=== PATIENT | female | born 1955 | race Caucasian/White ===

== ENCOUNTER 2020-06-03 06:59 | Outpatient (REF) | payer OTHER, SELFPAY ==
[2020-06-03 07:51] LABS: MANUAL DIFF FLAG NO
[2020-06-03 07:54] LABS: Basophils Absolute Auto 0.1 X10*3/uL (0.0-0.2); Basophils Percent Auto 1.1 % (0-2); Eosinophils Absolute Auto 0.1 X10*3/uL (0.0-0.4); Eosinophils Percent Auto 1.7 % (0-4); Hematocrit 42.2 % (37-47); Hemoglobin 14.4 g/dl (12.0-16.0); Imm Gran Abs Auto 0.01 X10*3/uL (0.00-0.03); Imm Gran Pct Auto 0.2 % (0.0-0.4); Lymphocytes Absolute Auto 1.9 X10*3/uL (1.2-4.9); Lymphocytes Percent Auto 39.9 % (20-40); Mean Corpuscular HGB Conc 34.1 g/dl (31.0-35.0); Mean Corpuscular Hemoglobin 30.2 pg (27.0-33.0); Mean Corpuscular Volume 88.5 fL (80-98); Mean Platelet Volume 10.7 fL (9.4-12.3); Monocytes Absolute Auto 0.4 X10*3/uL (0.1-1.2); Monocytes Percent Auto 7.9 % (2-11); Neutrophils Absolute Auto 2.3 X10*3/uL (2.0-8.3); Neutrophils Percent Auto 49.2 % (45-73); Platelet Count 202 X10*3/uL (160-400); Red Blood Count 4.77 X10*6/uL (4.20-5.50); Red Cell Distribution Width 12.2 % (11.0-16.0); White Blood Count 4.7 X10*3/uL (4.8-10.8)
[2020-06-03 08:19] LABS: Alanine Aminotransferase 30 U/L (0-31); Alkaline Phosphatase 79 U/L (39-117); Anion Gap 12 (12-20); Aspartate Amino Transferase 22 U/L (5-31); Bilirubin Total 0.6 mg/dL (0.0-1.0); Blood Urea Nitrogen 12 mg/dL (9-16); Calcium 8.9 mg/dL (8.4-10.2); Carbon Dioxide 28 mmol/L (22-29); Chloride 104 mmol/L (96-108); Cholesterol 149 mg/dL; Estimated Glomerular Filt Rate > 60; Glucose Fasting 105 mg/dL (60-99); HDL Cholesterol 49 mg/dL; LDL Cholesterol Calculated 79 mg/dl; Potassium 4.7 mmol/l (3.3-5.1); Sodium 139 mmol/L (135-145); Total Protein 6.5 g/dL (6.5-8.0); Triglycerides 105 mg/dL
[2020-06-03 08:41] LABS: Free T4 (Free Thyroxine) 0.96 ng/dL (0.71-1.85); Thyroid Stimulating Hormone 1.15 mIU/mL (0.32-4.0)
[2020-06-03 09:04] LABS: Glucose Urine UA NEG (NEG); Leukocyte Esterase Urine 1+ (NEG); Nitrite Urine NEG (NEG); Urine Blood TRACE (NEG); Urine Ketones NEG (NEG); Urine Protein NEG (NEG-TRACE)
[2020-06-03 09:06] LABS: Appearance Urine CLEAR; Color Urine YELLOW
[2020-06-03 09:54] LABS: RBC Urine 0-2 /HPF (0); Renal Epithelial Cells Urine TRACE /LPF; Squamous Epithelial Cell Urine 1+ /LPF
== END 2020-06-03 07:00 | disposition home or self-care (01) ==
LOC: HO.LAB 06:59
PROVIDERS: PCP Internal Medicine; Visit Provider Internal Medicine
DX: I10 Essential (primary) hypertension (principal); E78.5 Hyperlipidemia, unspecified; R73.01 Impaired fasting glucose; R74.8 Abnormal levels of other serum enzymes; E03.9 Hypothyroidism, unspecified; E06.3 Autoimmune thyroiditis; E66.9 Obesity, unspecified; G47.34 Idiopathic sleep related nonobstructive alveolar hypoventilation; J30.9 Allergic rhinitis, unspecified
CPT/HCPCS: 36415; 80053; 80061; 81001; 84439; 84443; 85025

== ENCOUNTER 2020-10-07 06:57 | Outpatient (REF) | payer OTHER, SELFPAY ==
[2020-10-07 07:28] LABS: MANUAL DIFF FLAG NO
[2020-10-07 07:37] LABS: Eosinophils Absolute Auto 0.2 X10*3/uL (0.0-0.4); Eosinophils Percent Auto 3.9 % (0-4); Hematocrit 41.7 % (37-47); Hemoglobin 14.3 g/dl (12.0-16.0); Imm Gran Abs Auto 0.01 X10*3/uL (0.00-0.03); Imm Gran Pct Auto 0.2 % (0.0-0.4); Lymphocytes Absolute Auto 1.6 X10*3/uL (1.2-4.9); Lymphocytes Percent Auto 39.2 % (20-40); Mean Corpuscular HGB Conc 34.3 g/dl (31.0-35.0); Mean Corpuscular Hemoglobin 29.9 pg (27.0-33.0); Mean Corpuscular Volume 87.1 fL (80-98); Mean Platelet Volume 11.3 fL (9.4-12.3); Monocytes Absolute Auto 0.3 X10*3/uL (0.1-1.2); Monocytes Percent Auto 8.3 % (2-11); Neutrophils Percent Auto 47.4 % (45-73); Platelet Count 185 X10*3/uL (160-400); Red Blood Count 4.79 X10*6/uL (4.20-5.50); Red Cell Distribution Width 12.7 % (11.0-16.0); White Blood Count 4.1 X10*3/uL (4.8-10.8)
[2020-10-07 07:44] LABS: Glucose Urine UA NEG (NEG); Leukocyte Esterase Urine 1+ (NEG); Nitrite Urine NEG (NEG); UACC Culture Trigger YES; Urine Blood TRACE (NEG); Urine Ketones NEG (NEG); Urine Protein NEG (NEG-TRACE)
[2020-10-07 07:51] LABS: Appearance Urine CLEAR; Color Urine YELLOW
[2020-10-07 07:59] LABS: Mucus Urine 1+ /LPF; RBC Urine 0 /HPF (0); Renal Epithelial Cells Urine TRACE /LPF; Squamous Epithelial Cell Urine 1+ /LPF
[2020-10-07 08:03] LABS: Alanine Aminotransferase 39 U/L (0-31); Albumin Level 4.1 g/dL (3.5-5.0); Alkaline Phosphatase 76 U/L (39-117); Anion Gap 11 (12-20); Aspartate Amino Transferase 28 U/L (5-31); Blood Urea Nitrogen 14 mg/dL (9-16); Carbon Dioxide 29 mmol/L (22-29); Chloride 105 mmol/L (96-108); Cholesterol 138 mg/dL; Estimated Glomerular Filt Rate > 60; Glucose Fasting 125 mg/dL (60-99); HDL Cholesterol 46 mg/dL; LDL Cholesterol Calculated 73 mg/dl; Potassium 4.3 mmol/L (3.3-5.1); Sodium 141 mmol/L (135-145); Total Protein 6.6 g/dL (6.5-8.0); Triglycerides 96 mg/dL
[2020-10-07 08:26] LABS: Free T4 (Free Thyroxine) 1.08 ng/dL (0.71-1.85); Thyroid Stimulating Hormone 0.12 uIU/mL (0.32-4.0)
== END 2020-10-07 06:58 | disposition home or self-care (01) ==
LOC: HO.LAB 06:57
PROVIDERS: PCP Internal Medicine; Visit Provider Internal Medicine
DX: J45.40 Moderate persistent asthma, uncomplicated (principal); J30.9 Allergic rhinitis, unspecified; I10 Essential (primary) hypertension; G47.34 Idiopathic sleep related nonobstructive alveolar hypoventilation; E78.00 Pure hypercholesterolemia, unspecified; R79.89 Other specified abnormal findings of blood chemistry; R73.01 Impaired fasting glucose; E03.8 Other specified hypothyroidism; E06.3 Autoimmune thyroiditis
CPT/HCPCS: 36415; 80053; 80061; 81001; 81003; 84439; 84443; 85025; 87086

== ENCOUNTER 2020-10-12 07:46 | Outpatient (REF) | payer OTHER, SELFPAY ==
--- NOTE | ~2020-10-12 | XR_ITS ---
EXAMINATION: XR AP STANDING VIEWS OF BOTH KNEES WELL SUNRISE AND LATERAL VIEWS OF THE LEFT KNEE CLINICAL INFORMATION: Left knee pain. COMPARISON: 09/27/2011 TECHNIQUE: AP standing views of both knees as well as sunrise and lateral views of the left knee. FINDINGS: There is no evidence of acute fracture or dislocation of the left knee. There is mild narrowing of the medial joint space compartments bilaterally with minimal marginal spurring which is similar to previous study of 09/27/2011. No left knee effusion is present. There is mild spurring at the patellofemoral joint. 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 No significant change from study of 09/27/2011.
--- NOTE | ~2020-10-12 | XR_ITS ---
EXAMINATION: XR AP STANDING VIEWS OF BOTH KNEES WELL SUNRISE AND LATERAL VIEWS OF THE LEFT KNEE CLINICAL INFORMATION: Left knee pain. COMPARISON: 09/27/2011 TECHNIQUE: AP standing views of both knees as well as sunrise and lateral views of the left knee. FINDINGS: There is no evidence of acute fracture or dislocation of the left knee. There is mild narrowing of the medial joint space compartments bilaterally with minimal marginal spurring which is similar to previous study of 09/27/2011. No left knee effusion is present. There is mild spurring at the patellofemoral joint. 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 No significant change from study of 09/27/2011.
== END 2020-10-12 07:47 | disposition home or self-care (01) ==
LOC: HO.HOSX 07:46
PROVIDERS: Visit Provider Orthopaedic Surgery
DX: M17.12 Unilateral primary osteoarthritis, left knee (principal)
CPT/HCPCS: 73560; 73565

== ENCOUNTER 2020-12-04 15:22 | Outpatient (REF) | payer OTHER, SELFPAY ==
[2020-12-04 15:47] LABS: MANUAL DIFF FLAG NO
[2020-12-04 15:56] LABS: Basophils Percent Auto 0.7 % (0-2); Eosinophils Absolute Auto 0.1 X10*3/uL (0.0-0.4); Hematocrit 42.2 % (37-47); Hemoglobin 14.1 g/dl (12.0-16.0); Imm Gran Abs Auto 0.02 X10*3/uL (0.00-0.03); Imm Gran Pct Auto 0.3 % (0.0-0.4); Lymphocytes Percent Auto 34.7 % (20-40); Mean Corpuscular HGB Conc 33.4 g/dl (31.0-35.0); Mean Corpuscular Hemoglobin 29.3 pg (27.0-33.0); Mean Corpuscular Volume 87.6 fL (80-98); Mean Platelet Volume 10.7 fL (9.4-12.3); Monocytes Absolute Auto 0.4 X10*3/uL (0.1-1.2); Neutrophils Absolute Auto 3.3 X10*3/uL (2.0-8.3); Neutrophils Percent Auto 56.3 % (45-73); Platelet Count 193 X10*3/uL (160-400); Red Blood Count 4.82 X10*6/uL (4.20-5.50); White Blood Count 5.9 X10*3/uL (4.8-10.8)
[2020-12-04 16:12] LABS: Anion Gap 13 (12-20); Carbon Dioxide 26 mmol/L (22-29); Chloride 106 mmol/L (96-108); Potassium 4.5 mmol/L (3.3-5.1); Sodium 140 mmol/L (135-145)
== END 2020-12-04 15:23 | disposition home or self-care (01) ==
LOC: HO.LABR 15:22
PROVIDERS: PCP Internal Medicine; Visit Provider Physician Assistant Medical
DX: L65.0 Telogen effluvium (principal); L20.84 Intrinsic (allergic) eczema
CPT/HCPCS: 36415; 80051; 85025

== ENCOUNTER 2021-02-01 09:53 | Outpatient (REF) | payer OTHER, SELFPAY ==
[2021-02-01 10:29] LABS: MANUAL DIFF FLAG NO
[2021-02-01 10:37] LABS: Basophils Absolute Auto 0.1 X10*3/uL (0.0-0.2); Basophils Percent Auto 1.2 % (0-2); Eosinophils Absolute Auto 0.1 X10*3/uL (0.0-0.4); Eosinophils Percent Auto 2.1 % (0-4); Hematocrit 43.3 % (37-47); Hemoglobin 14.6 g/dl (12.0-16.0); Imm Gran Abs Auto 0.01 X10*3/uL (0.00-0.03); Imm Gran Pct Auto 0.2 % (0.0-0.4); Lymphocytes Absolute Auto 1.5 X10*3/uL (1.2-4.9); Lymphocytes Percent Auto 34.7 % (20-40); Mean Corpuscular HGB Conc 33.7 g/dl (31.0-35.0); Mean Corpuscular Volume 88.9 fL (80-98); Mean Platelet Volume 10.9 fL (9.4-12.3); Monocytes Absolute Auto 0.4 X10*3/uL (0.1-1.2); Monocytes Percent Auto 8.1 % (2-11); Neutrophils Absolute Auto 2.3 X10*3/uL (2.0-8.3); Neutrophils Percent Auto 53.7 % (45-73); Platelet Count 205 X10*3/uL (160-400); Red Blood Count 4.87 X10*6/uL (4.20-5.50); Red Cell Distribution Width 12.7 % (11.0-16.0); White Blood Count 4.3 X10*3/uL (4.8-10.8)
[2021-02-01 11:06] LABS: Anion Gap 11 (12-20); Carbon Dioxide 28 mmol/L (22-29); Chloride 105 mmol/L (96-108); Potassium 4.8 mmol/L (3.3-5.1); Sodium 139 mmol/L (135-145)
== END 2021-02-01 09:54 | disposition home or self-care (01) ==
LOC: HO.LABR 09:53
PROVIDERS: PCP Internal Medicine; Visit Provider Physician Assistant Medical
DX: L65.0 Telogen effluvium (principal); L20.84 Intrinsic (allergic) eczema
CPT/HCPCS: 36415; 80051; 85025

== ENCOUNTER 2021-02-17 07:33 | Outpatient (REF) | payer MEDICARE, OTHER, SELFPAY | END 2021-02-17 07:34 | disposition home or self-care (01) | LOC: HO.LAB 07:33 | PROVIDERS: PCP Internal Medicine; Visit Provider Internal Medicine | DX: Z13.89 Encounter for screening for other disorder (principal) ==

== ENCOUNTER 2021-07-25 09:42 | Outpatient (REF) | payer MEDICARE, OTHER, SELFPAY ==
--- NOTE | ~2021-07-25 | FL_ITS ---
EXAMINATION: FL BARIUM SWALLOW CLINICAL INFORMATION: Dysphasia. COMPARISON: None TECHNIQUE: Barium swallow examination is performed using fluoroscopic evaluation in addition to multiple fluoroscopic spot views. The patient is imaged both upright and prone and using both thick and thin barium sulfate. Fluoroscopy time: 1.1 minutes DAP: 4.416 Gy-cm2 Images: 22 FINDINGS: The patient swallowed thin and thick barium without difficulty. There is no nasopharyngeal reflux or tracheal aspiration. There is normal apposition of the vocal cords while saying E. There is normal elevation of the soft palate while saying candy. No cricopharyngeal hypertrophy. No Zenker's diverticulum. There is normal esophageal motility without erosive change. No persistent stricture. There is noted to be a Schatzki's ring but through which a half-inch diameter barium tablet passed easily. No gastroesophageal reflux was seen during the study including with water siphon test. FL/FL barium swallow IMPRESSION: Schatzki's ring.
== END 2021-07-25 09:43 | disposition home or self-care (01) ==
LOC: HO.XRAY 09:42
PROVIDERS: Visit Provider Internal Medicine
DX: R13.10 Dysphagia, unspecified (principal)
CPT/HCPCS: 74220

== ENCOUNTER 2021-10-13 07:06 | Outpatient (REF) | payer MEDICARE, OTHER, SELFPAY ==
[2021-10-13 07:17] LABS: MANUAL DIFF FLAG NO
[2021-10-13 07:57] LABS: Basophils Percent Auto 0.6 % (0-2); Eosinophils Absolute Auto 0.1 X10*3/uL (0.0-0.4); Hematocrit 43.5 % (37.0-47.0); Hemoglobin 14.2 g/dl (12.0-16.0); Lymphocytes Absolute Auto 1.9 X10*3/uL (1.2-4.9); Lymphocytes Percent Auto 36.8 % (20-40); Mean Corpuscular HGB Conc 32.6 g/dl (31.0-35.0); Mean Corpuscular Hemoglobin 29.7 pg (27.0-33.0); Mean Platelet Volume 11.2 fL (9.4-12.3); Monocytes Absolute Auto 0.4 X10*3/uL (0.1-1.2); Monocytes Percent Auto 7.2 % (2-11); Neutrophils Absolute Auto 2.7 x10*3/uL (2.0-8.3); Neutrophils Percent Auto 53.4 % (45-73); Platelet Count 196 X10*3/uL (160-400); Red Blood Count 4.78 X10*6/uL (4.20-5.50); Red Cell Distribution Width 12.5 % (11.0-16.0)
[2021-10-13 08:11] LABS: Estimated Average Glucose 117 mg/dL; Hemoglobin A1c % 5.7 %
[2021-10-13 08:18] LABS: Appearance Urine HAZY; Color Urine YELLOW; Glucose Urine UA NEG (NEG); Leukocyte Esterase Urine 2+ (NEG); Nitrite Urine NEG (NEG); PH 6.5 (5.0-8.0); UACC Culture Trigger YES; Urine Blood NEG (NEG); Urine Ketones NEG (NEG); Urine Protein NEG (NEG-TRACE)
[2021-10-13 08:23] LABS: Alanine Aminotransferase 23 U/L (0-31); Alkaline Phosphatase 79 U/L (39-117); Anion Gap 12 (12-20); Aspartate Amino Transferase 21 U/L (5-31); Bilirubin Total 0.7 mg/dL (0.0-1.0); Blood Urea Nitrogen 17 mg/dL (9-16); Calcium 9.3 mg/dL (8.4-10.2); Carbon Dioxide 27 mmol/L (22-29); Chloride 107 mmol/L (96-108); Cholesterol 149 mg/dL; Estimated Glomerular Filt Rate > 60; Glucose Fasting 116 mg/dL (60-99); HDL Cholesterol 48 mg/dL; LDL Cholesterol Calculated 88 mg/dl; Potassium 4.8 mmol/L (3.3-5.1); Sodium 141 mmol/L (135-145); Total Protein 6.6 g/dL (6.5-8.0); Triglycerides 65 mg/dL
[2021-10-13 08:37] LABS: Mucus Urine 1+ /LPF; RBC Urine 0 /HPF (0); Squamous Epithelial Cell Urine 1+ /LPF
[2021-10-13 08:46] LABS: Free T4 (Free Thyroxine) 0.91 ng/dL (0.71-1.85); Thyroid Stimulating Hormone 0.36 uIU/mL (0.32-4.0)
== END 2021-10-13 07:07 | disposition home or self-care (01) ==
LOC: HO.LAB 07:06
PROVIDERS: PCP Internal Medicine; Visit Provider Internal Medicine
DX: I10 Essential (primary) hypertension (principal); E03.9 Hypothyroidism, unspecified; E78.00 Pure hypercholesterolemia, unspecified; R73.01 Impaired fasting glucose; G47.34 Idiopathic sleep related nonobstructive alveolar hypoventilation; J30.9 Allergic rhinitis, unspecified; R79.89 Other specified abnormal findings of blood chemistry
CPT/HCPCS: 36415; 80053; 80061; 81001; 83036; 84439; 84443; 85025; 87086

== ENCOUNTER 2022-06-03 15:20 | Outpatient (REF) | payer MEDICARE, OTHER, SELFPAY ==
--- NOTE | ~2022-06-03 | XR_ITS ---
EXAMINATION: XR CHEST CLINICAL INFORMATION: Acute bronchitis. COMPARISON: Chest radiograph dated from 10/15/2012. TECHNIQUE: 2 views of the chest were obtained. FINDINGS: Normal appearance of the cardiomediastinal silhouette except for atherosclerotic disease of the thoracic aorta and coronary artery calcifications. No focal airspace opacities, pleural effusions or pneumothorax. No acute osseous abnormalities. Thoracic spondylosis. Right upper quadrant surgical clips are noted. XR/XR chest 2V IMPRESSION: No acute cardiopulmonary findings.
== END 2022-06-03 15:21 | disposition home or self-care (01) ==
LOC: HO.HMGCX 15:20
PROVIDERS: PCP Internal Medicine; Visit Provider Internal Medicine
DX: J20.9 Acute bronchitis, unspecified (principal)
CPT/HCPCS: 71046

== ENCOUNTER 2022-06-29 07:14 | Outpatient (REF) | payer MEDICARE, OTHER, SELFPAY ==
[2022-06-29 08:03] LABS: Estimated Average Glucose 117 mg/dL; Hemoglobin A1C 150.0247 umol/L; Hemoglobin A1c % 5.7 %
[2022-06-29 08:41] LABS: Alanine Aminotransferase 27 U/L (0-31); Alkaline Phosphatase 78 U/L (39-117); Anion Gap 12 (12-20); Aspartate Amino Transferase 26 U/L (5-31); Bilirubin Total 0.8 mg/dL (0.0-1.0); Blood Urea Nitrogen 19 mg/dL (9-16); Calcium 9.3 mg/dL (8.4-10.2); Carbon Dioxide 26 mmol/L (22-29); Chloride 107 mmol/L (96-108); Cholesterol 148 mg/dL; Estimated Glomerular Filt Rate > 60; Free T4 (Free Thyroxine) 0.91 ng/dL (0.71-1.85); Glucose Fasting 104 mg/dL (60-99); HDL Cholesterol 49 mg/dL; LDL Cholesterol Calculated 81 mg/dl; Sodium 140 mmol/L (135-145); Thyroid Stimulating Hormone 1.72 uIU/mL (0.32-4.0); Total Protein 6.5 g/dL (6.5-8.0); Triglycerides 91 mg/dL; Vitamin D 25-OH Total 36.1 ng/mL (>30)
[2022-06-29 09:15] LABS: Appearance Urine Clear; Color Urine Dark Yellow; Glucose Urine UA Negative (Negative); Leukocyte Esterase Urine Moderate (2+) (Negative); Nitrite Urine Negative (Negative); Specific Gravity - Urine 1.025 (1.005-1.025); UMIC TRIGGER UACC YES; Urine Blood Small (1+) (Negative); Urine Ketones Negative (Negative); Urine Protein Negative (Neg-Trace)
[2022-06-29 09:22] LABS: Bacteria Urine None Seen (None Seen); Hyaline Casts Urine 0-2 /LPF (0-2); UACC Culture Trigger YES; WBC Urine >50 /HPF (0-5)
== END 2022-06-29 07:15 | disposition home or self-care (01) ==
LOC: HO.LAB 07:14
PROVIDERS: PCP Internal Medicine; Visit Provider Internal Medicine
DX: E03.9 Hypothyroidism, unspecified (principal); E55.9 Vitamin D deficiency, unspecified; R73.01 Impaired fasting glucose; E78.00 Pure hypercholesterolemia, unspecified
CPT/HCPCS: 36415; 80053; 80061; 81001; 82306; 83036; 84439; 84443; 87086

== ENCOUNTER 2022-07-25 09:41 | Outpatient (REF) | payer MEDICARE, OTHER, SELFPAY ==
--- NOTE | 2022-07-25 11:29 | PFT_ITS ---
DIAGNOSIS: Shortness of breath. SPIROMETRY: FEV1 to FVC 85% with an FEV1 of 2.7 L which is 104% predicted, an FVC of 3.19 L which is 92% predicted. No significant response to bronchodilators noted. Maximum voluntary ventilation 90% predicted. LUNG VOLUMES: Total lung capacity 90% predicted with an expiratory reserve volume of 25% predicted. DIFFUSION CAPACITY: DLCO 76% predicted. COMPARISONS: None. INTERPRETATION: No obstructive nor restrictive ventilatory defects identified. No significant response to bronchodilators noted. Normal maximum voluntary ventilation. Lung volumes with a decrease in the expiratory reserve volume secondary to an elevated BMI. The patient does have isolated mild diffusion impairment. Need to correct for hemoglobin. Clinical correlation warranted. Sae Schwartz MD MR/MODL / [id number]
== END 2022-07-25 09:42 | disposition home or self-care (01) ==
LOC: HO.RESP 09:41
PROVIDERS: PCP Internal Medicine; Visit Provider Internal Medicine
DX: R06.02 Shortness of breath (principal)
CPT/HCPCS: 94060; 94727; 94729

== ENCOUNTER 2022-09-15 11:47 | Emergency (ER) | payer MEDICARE, OTHER, SELFPAY ==
--- NOTE | ~2022-09-15 | CT_ITS ---
EXAMINATION: CT abdomen pelvis wo IV con CLINICAL INFORMATION: Reason for Exam L flank pain rad LLQ COMPARISON: No prior CT available for comparison. TECHNIQUE: Multidetector volumetric imaging was performed from the superior aspect of the liver through the pubic symphysis noncontrasted study Sagittal and coronal reformatted images were obtained on the technologist's workstation. This CT examination was performed using dose optimization techniques as appropriate, variously including the following: *Automated exposure control *Adjustment of mA and/or kV according to patient size (this includes techniques or standardized protocols for targeted exams where dose is matched to indication/reason for exam; i.e. extremities or head) *Use of iterative reconstruction technique DLP: 818 mGy-cm FINDINGS: LOWER THORAX: Included lung bases are clear. HEPATOBILIARY: No focal hepatic lesions. No biliary ductal dilatation. GALLBLADDER: Gallbladder has been removed. SPLEEN: Spleen is normal in size. PANCREAS: No focal mass or ductal dilatation. STOMACH AND GASTROINTESTINAL TRACT: Stomach is grossly unremarkable. There is no bowel distention or thickening. No CT evidence of appendicitis. ADRENALS: No adrenal nodules. KIDNEYS/URETERS: There is mild to moderate left renal hydronephrosis and hydroureter due to 5 mm stone lodged at the distal left UVJ. No perinephric fat stranding. No other stones. The right kidney is normal. URINARY BLADDER: Partially decompressed. PELVIC VISCERA: Unremarkable PERITONEUM: No free air or fluid. LYMPH NODES: No lymphadenopathy. VASCULAR:Abdominal aorta normal in size, no aneurysm found. BONES, ABDOMINAL WALL AND SOFT TISSUES: Age-appropriate changes of the spine and skeletal system, no destructive osteolytic or osteosclerotic bone lesion found CT/CT abdomen pelvis wo IV con IMPRESSION: Mild to moderate left renal hydronephrosis and hydroureter due to 5 mm stone lodged at the distal left UVJ.
[2022-09-15 12:02] VITALS: BP 174/64; PULSE 75; RESP 16; TEMP 36.9; O2SAT 98; BMI 31.9
--- NOTE | 2022-09-15 12:02 | ED.ABDPAIN ---
HPI - Abdominal Pain General Chief Complaint: Urogenital-Female <LOPEZ Jean - Last Filed: 09/15/22 12:05> Stated Complaint: quest kidney stones. 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 The patient reports left sided flank pain was intermittent at first 4 out 10 sharp radiating to LLQ/ groin area, last night left sided flank pain out of proportion 10 out of 10 sharp radiating to LLQ/groin area. Denies fever, chills, night sweats. Denies dysuria, frequency and urgency, however reports hematuria started this morning. Intermittent nausea. No vomiting, diarrhea. Increased belching. Last bowel movement yesterday and normal. Eating and drinking ok, ate full breakfast this morning. She reports taking Aleve with minimal improvement. <LOPEZ Bolton - Last Filed: 09/15/22 15:50> MD elicited complaint: flank pain (Left side ) <LOPEZ Bolton Last Filed: 09/15/22 15:50> Pertinent past history: kidney stones <LOPEZ Bolton Last Filed: 09/15/22 15:50> Onset (ago): day(s) <LOPEZ Bolton Last Filed: 09/15/22 15:50> Pain Consistency: constant <LOPEZ Bolton Last Filed: 09/15/22 15:50> Location: L flank and groin <LOPEZ Bolton - Last Filed: 09/15/22 15:50> Severity: severe <LOPEZ Bolton - Last Filed: 09/15/22 15:50> Pain scale (0-10): 10 <LOPEZ oBlton - Last Filed: 09/15/22 15:50> Quality: sharp <LOPEZ Bolton - Last Filed: 09/15/22 15:50> Radiation: LLQ (pain radiating to LLQ groin area ) and suprapubic <LOPEZ Bolton - Last Filed: 09/15/22 15:50> Migration to: LLQ <LOPEZ Bolton - Last Filed: 09/15/22 15:50> Exacerbating factors: movement <LOPEZ Bolton - Last Filed: 09/15/22 15:50> Relieving factors: medication (some improvement with Aleve ) <LOPEZ Bolton - Last Filed: 09/15/22 15:50> Associated symptoms: nausea and hematuria <LOPEZ Bolton - Last Filed: 09/15/22 15:50> Treatments prior to arrival: other (Aleve ) <LOPEZ Bolton - Last Filed: 09/15/22 15:50> Related Data Home Medications: Home Medications Medication Instructions Recorded Confirmed fluticasone 250 mcg-salmeterol 50 1 inh inhalation Q12H 06/16/20 07/01/22 mcg/dose blistr powdr for inhalation (Advair Diskus) loratadine 10 mg disintegrating 10 mg PO DAILY 06/16/20 07/01/22 tablet (Allergy Relief (loratadine)) omega-3 fatty acids 1,000 mg 2,000 mg PO DAILY 08/15/20 07/01/22 capsule (Fish Oil Concentrate) Previous Rx's Medication Instructions Recorded albuterol sulfate 90 mcg/actuation 2 puff inhalation Q6H PRN 01/01/22 aerosol inhaler (ProAir HFA) bronchospasm #6.7 grams levofloxacin 500 mg tablet 500 mg PO DAILY #10 tabs 06/03/22 levothyroxine 100 mcg tablet 100 mcg PO QAM 90 days #90 tabs 07/01/22 ezetimibe 10 mg-simvastatin 20 mg 1 tab PO DAILY #90 tabs 07/17/22 tablet lisinopril 10 mg tablet 10 mg PO DAILY #90 tabs 08/07/22 ketorolac 10 mg tablet 10 mg PO Q8H #14 tabs 09/15/22 ondansetron HCl 4 mg tablet 4 mg PO Q8H Nausea and vomiting 09/15/22 #14 tabs prednisone 20 mg tablet 20 mg PO DAILY inflammation 5 days 09/15/22 #5 tabs tamsulosin 0.4 mg capsule (Flomax) 0.4 mg PO DAILY 5 days #5 caps 09/15/22 <LOPEZ Jean Last Filed: 09/15/22 12:05> Allergies/Adverse Reactions: Allergies Allergy/AdvReac Type Severity Reaction Status Date / Time cortisone Allergy Mild swelling Verified 09/15/22 12:02 Codeine Phosphate AdvReac Severe mental Verified 09/15/22 12:02 status changes, dizziness, fuzzy gabapentin [Neurontin] AdvReac Severe mental Verified 09/15/22 12:02 status changes tramadol AdvReac Severe mental Verified 09/15/22 12:02 status change, dizziness, fuzzy carrots, apple cheeries, and Allergy Unknown Unknown Uncoded 07/01/22 11:00 a <LOPEZ Jean Last Filed: 09/15/22 12:05> Review of Systems Review of Systems Constitutional : No Fever, No Chills, No Night Sweats, No Fatigue, No Malaise Cardiovascular : No Chest Pain, No SOB Respiratory : No Cough, No Sputum, No Wheezing, No Dyspnea Gastrointestinal : + Nausea, No Vomiting, No Diarrhea, + abdominal Pain left flank radiating to LLQ/groin area. No Hematochezia, No Melena Genitourinary : No irregular bleeding, No Dysuria, No Urinary Frequency, + Hematuria,No Urinary Incontinence, No Urgency, No Flank Pain Musculoskeletal : No joint pain, No Myalgias, No Joint Swelling Skin : No Skin Lesions, No rash Neuro : No Weakness, No Numbness, No Paresthesias, No Loss of Consciousness, No Dizziness, No Headache Heme/Lymph: No Lymphadenopathy Endocrine : No Temperature Intolerance <LOPEZ Bolton Last Filed: 09/15/22 15:50> Yes all other systems are reviewed and are negative <LOPEZ Bolton Filed: 09/15/22 15:50> [facility] Past Medical History Attestation statement: The following information was validated with the patient. <LOPEZ Bolton - Last Filed: 09/15/22 15:50> Source: old records reviewed, obtained from family and nursing notes reviewed <LOPEZ Bolton - Last Filed: 09/15/22 15:50> Medical History: Medical History Allergic rhinitis Arthritis of sacroiliac joint Asthma Benign essential hypertension Bilateral lower extremity edema Degenerative joint disease of left knee Elevated LFTs Hair loss Aime's thyroiditis Hypothyroidism Impaired fasting glucose Lumbar degenerative disc disease Nocturnal hypoxemia Obesity (BMI 30-39.9) Pure hypercholesterolemia <LOPEZ Jean - Last Filed: 09/15/22 12:05> Surgical History: Surgical History H/O knee surgery History of cholecystectomy History of excision of lesion History of extraction of renal calculus History of removal of cyst History of tonsillectomy History of total abdominal hysterectomy <LOPEZ eJan - Last Filed: 09/15/22 12:05> Family History Family History: Family History Father No problems noted. Mother Stroke Hypertension CVD (cardiovascular disease) Diabetes mellitus Cancer <LOPEZ Jean - Last Filed: 09/15/22 12:05> Social History Social History: Social History Housing: Apartment Alcohol intake: current Alcohol intake frequency: holidays/special occasions only Patient Tobacco Use Status: Never used Tobacco e-Cigarette/Vaping Use: Never Used Second Hand Smoke Exposure: Yes Advance Directives: No Advance Directives Information Provided: No service: No Current occupational status: retired Cognitive needs: No Hearing needs: No Vision needs: Yes (Glasses) <LOPEZ Jean - Last Filed: 09/15/22 12:05> Physical Exam ED Vital Signs: Vital Signs - 24 hr 09/15/22 12:02 09/15/22 13:35 Temperature 98.4 F 97.8 F Pulse Rate 75 78 Respiratory Rate 16 18 Blood Pressure 174/64 H 142/80 H Pulse Oximetry 98 93 Oxygen Delivery Method Room Air Room Air BMI result Body Mass Index 31.9 <LOPEZ Jean - Last Filed: 09/15/22 12:05> Vital Signs - 24 hr 09/15/22 12:02 09/15/22 13:35 Temperature 98.4 F 97.8 F Pulse Rate 75 78 Respiratory Rate 16 18 Blood Pressure 174/64 H 142/80 H Pulse Oximetry 98 93 Oxygen Delivery Method Room Air Room Air BMI result Body Mass Index 31.9 Vital signs have been reviewed and all within normal limits <LOPEZ Bolton - Last Filed: 09/15/22 15:50> Appearance: Alert. Oriented X3. No acute distress. Head: Normal external exam. Normocephalic. Eyes: PERRLA. EOMI. Conjunctiva and sclera normal. Eyelids normal. ENT: Pharynx normal. Uvula midline. Moist mucous membranes. No trismus noted. No drooling noted. No muffled voice noted. Neck: Normal inspection. Neck supple. FROM. No adenopathy. No meningeal signs. CVS: Normal heart rate and rhythm. Heart sound normal. No murmurs noted. Pulses normal throughout. Respiratory: No respiratory distress. Painless inspiration. Breath sounds normal. No wheezes/rales/rhonchi noted. Chest nontender. No accessory muscle usage noted or decreased air movement noted. Abdomen: Soft and LLQ tenderness . Nondistended. No guarding. No rigidity. Bowel sounds normal in all 4 quadrants. No distention noted. No organomegaly noted. No visible injury noted. No rebound tenderness. Negative Rovsing sign. Negative obturator's sign. Negative psoas sign. Negative Braga sign. Back: + CVA tenderness left side. Full range of motion noted. Skin: Skin warm and dry. Normal skin color. Normal skin turgor. No rashes/lesions/lacerations noted. Extremities: Extremities exhibit normal range of motion. Extremities nontender. Neuro: Oriented X 3. No motor deficit. No sensory deficit. Reflexes normal. Normal steady gait. CN's II-XII intact bilaterally? <LOPEZ Bolton - Last Filed: 02/05/23 15:50> Course Course Course Narrative: RMZahraa--67-year-old female with past medical history of kidney stones, renal stones, HLD, Aime's thyroiditis, asthma, presenting to the ED complaining of left flank pain radiating to left lower quadrant x1 week with associated nausea and hematuria. 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 The patient reports left sided flank pain was intermittent at first 4 out 10 sharp radiating to LLQ/ groin area, last night left sided flank pain out of proportion 10 out of 10 sharp radiating to LLQ/groin area. Denies fever, chills, night sweats. Denies dysuria, frequency and urgency, however reports hematuria started this morning. Intermittent nausea. No vomiting, diarrhea. Increased belching. Last bowel movement yesterday and normal. Eating and drinking ok, ate full breakfast this morning. She reports taking Aleve with minimal improvement. The patient is a 67 year old female with a past medical history of Kidney and renal stones presenting with a week long history of intermittent Left sided flank pain radiating to the LLQ/groin area. Reports nausea and hematuria which she noted this morning. The pain progressed from sharp 4 out of 10 to 10 out of 10 pain. Plan: IV fluids Pain Control Imaging <LOPEZ Bolton - Last Filed: 09/15/22 15:50> Time: 12:15 <LOPEZ Bolton - Last Filed: 09/15/22 15:50> Reevaluation #2: CBC - with normal lab values BMP - BUN 22 - Random Glucose 134, AST/ALT 34, Total Protein 6.4 UA - Urine BLood - 3+ Large, Leukocyte Esterase 2+ moderate, Urine RBC >20 COVID-19 Negative <LOPEZ Bloton - Last Filed: 09/15/22 15:50> Time: 13:26 <LOPEZ Bolton - Last Filed: 09/15/22 15:50> Reevaluation #3: Imaging: CT/CT abdomen pelvis wo IV con IMPRESSION: Mild to moderate left renal hydronephrosis and hydroureter due to 5 mm stone lodged at the distal left UVJ. Therefore I discussed this case with Shabbir the urologist and he reports as long as her pain is controlled which it is with IV Toradol that the patient can be discharged with symptomatic treatment, Flomax and prednisone with follow-up with him as an outpatient basis and his symptoms worsen to return. Patient understands and is agreeable to this. <LOPEZ Bolton - Last Filed: 09/15/22 15:50> Time: 15:44 <LOPEZ Bolton - Last Filed: 09/15/22 15:50> Medical Decision Making Consult Healthcare Provider Management of the patient was discussed with: Exercise Instructor (Dr. Shea urologist) <LOPEZ Bolton - Last Filed: 09/15/22 15:50> Lab Data MDM Lab Attestation statement: I reviewed the patient's lab results. <LOPEZ Bolton - Last Filed: 09/15/22 15:50> Result Diagrams: 09/15/22 12:15 09/15/22 12:15 <LOPEZ Jean - Last Filed: 09/15/22 12:05> Labs: Lab Results 09/15/22 09/15/22 09/15/22 Range/Units 12:15 12:15 12:15 WBC 6.6 (4.8-10.8) X10*3/uL RBC 4.80 (4.20-5.50) X10*6/uL Hgb 14.5 (12.0-16.0) g/dl Hct 42.7 (37.0-47.0) % MCV 89.0 (80.0-98.0) fL MCH 30.2 (27.0-33.0) pg MCHC 34.0 (31.0-35.0) g/dl RDW 12.7 (11.0-16.0) % Plt Count 194 (160-400) X10*3/uL MPV 10.1 (9.4-12.3) fL Immature Gran % (Auto) 0.2 (0.0-0.4) % Neut % (Auto) 67.8 (45-73) % Lymph % (Auto) 22.0 (20-40) % [place] % (Auto) 7.4 (2-11) % Eos % (Auto) 2.0 (0-4) % Baso % (Auto) 0.6 (0-2) % Lymph # (Auto) 1.5 (1.2-4.9) X10*3/uL [place] # (Auto) 0.5 (0.1-1.2) X10*3/uL Eos # (Auto) 0.1 (0.0-0.4) X10*3/uL Baso # (Auto) 0.0 (0.0-0.2) X10*3/uL Abs Immat Gran (auto) 0.01 (0.00-0.03) X10*3/uL Absolute Neuts (auto) 4.5 (2.0-8.3) x10*3/uL Absolute Nucleated RBC 0.000 (0.0-0.012) X10*3/uL Nucleated RBC % (auto) 0.0 (0.0-0.2) /100WBC Sodium 140 (135-145) mmol/L Potassium 4.8 (3.3-5.1) mmol/L Chloride 107 (96-108) mmol/L Carbon Dioxide 24 (22-29) mmol/L Anion Gap 14 (12-20) BUN 22 H (9-16) mg/dL Creatinine 1.36 (0.5-1.4) mg/dL Estim Creat Clear Calc 46.8 Estimated GFR 39 Random Glucose 134 H (60-115) mg/dL Calcium 9.3 (8.4-10.2) mg/dL Magnesium 1.8 (1.6-2.6) mg/dL Total Bilirubin 0.9 (0.0-1.0) mg/dL Direct Bilirubin 0.2 (0.0-0.5) mg/dL AST 34 H (5-31) U/L ALT 34 H (0-31) U/L Alkaline Phosphatase 88 (39-117) U/L Total Protein 6.4 L (6.5-8.0) g/dL Albumin 3.9 (3.5-5.0) g/dL Lipase 32 (8-78) U/L Urine Color Urine Appearance Urine pH (5.0-9.0) Ur Specific [place] (1.005-1.025) Urine Protein (Neg-Trace) mg/dL Urine Glucose (UA) (Negative) mg/dL Urine Ketones (Negative) mg/dL Urine Blood (Negative) Urine Nitrite (Negative) Ur Leukocyte Esterase (Negative) Urine RBC (0-2) /HPF Urine WBC (0-5) /HPF Ur Squamous Epith Cells (0-2) /HPF Urine Bacteria (None Seen) Hyaline Casts (0-2) /LPF COVID-19 (CLAY) Negative (Negative) COVID-19 Clin Com See Note 09/15/22 Range/Units 12:15 WBC (4.8-10.8) X10*3/uL RBC (4.20-5.50) X10*6/uL Hgb (12.0-16.0) g/dl Hct (37.0-47.0) % MCV (80.0-98.0) fL MCH (27.0-33.0) pg MCHC (31.0-35.0) g/dl RDW (11.0-16.0) % Plt Count (160-400) X10*3/uL MPV (9.4-12.3) fL Immature Gran % (Auto) (0.0-0.4) % Neut % (Auto) (45-73) % Lymph % (Auto) (20-40) % [place] % (Auto) (2-11) % Eos % (Auto) (0-4) % Baso % (Auto) (0-2) % Lymph # (Auto) (1.2-4.9) X10*3/uL [place] # (Auto) (0.1-1.2) X10*3/uL Eos # (Auto) (0.0-0.4) X10*3/uL Baso # (Auto) (0.0-0.2) X10*3/uL Abs Immat Gran (auto) (0.00-0.03) X10*3/uL Absolute Neuts (auto) (2.0-8.3) x10*3/uL Absolute Nucleated RBC (0.0-0.012) X10*3/uL Nucleated RBC % (auto) (0.0-0.2) /100WBC Sodium (135-145) mmol/L Potassium (3.3-5.1) mmol/L Chloride (96-108) mmol/L Carbon Dioxide (22-29) mmol/L Anion Gap (12-20) BUN (9-16) mg/dL Creatinine (0.5-1.4) mg/dL Estim Creat Clear Calc Estimated GFR Random Glucose (60-115) mg/dL Calcium (8.4-10.2) mg/dL Magnesium (1.6-2.6) mg/dL Total Bilirubin (0.0-1.0) mg/dL Direct Bilirubin (0.0-0.5) mg/dL AST (5-31) U/L ALT (0-31) U/L Alkaline Phosphatase (39-117) U/L Total Protein (6.5-8.0) g/dL Albumin (3.5-5.0) g/dL Lipase (8-78) U/L Urine Color Dark Yellow Urine Appearance Cloudy Urine pH 5.5 (5.0-9.0) Ur Specific [place] 1.025 (1.005-1.025) Urine Protein Trace (Neg-Trace) mg/dL Urine Glucose (UA) Negative (Negative) mg/dL Urine Ketones Trace (Negative) mg/dL Urine Blood Large (3+) H (Negative) Urine Nitrite Negative (Negative) Ur Leukocyte Esterase Moderate (2+) H (Negative) Urine RBC >20 H (0-2) /HPF Urine WBC 11-20 (0-5) /HPF Ur Squamous Epith Cells 0-2 (0-2) /HPF Urine Bacteria None Seen (None Seen) Hyaline Casts 0-2 (0-2) /LPF COVID-19 (CLAY) (Negative) COVID-19 Clin Com <LOPEZ Jean - Last Filed: 09/15/22 12:05> Lab Results 09/15/22 09/15/22 09/15/22 Range/Units 12:15 12:15 12:15 WBC 6.6 (4.8-10.8) X10*3/uL RBC 4.80 (4.20-5.50) X10*6/uL Hgb 14.5 (12.0-16.0) g/dl Hct 42.7 (37.0-47.0) % MCV 89.0 (80.0-98.0) fL MCH 30.2 (27.0-33.0) pg MCHC 34.0 (31.0-35.0) g/dl RDW 12.7 (11.0-16.0) % Plt Count 194 (160-400) X10*3/uL MPV 10.1 (9.4-12.3) fL Immature Gran % (Auto) 0.2 (0.0-0.4) % Neut % (Auto) 67.8 (45-73) % Lymph % (Auto) 22.0 (20-40) % [place] % (Auto) 7.4 (2-11) % Eos % (Auto) 2.0 (0-4) % Baso % (Auto) 0.6 (0-2) % Lymph # (Auto) 1.5 (1.2-4.9) X10*3/uL [place] # (Auto) 0.5 (0.1-1.2) X10*3/uL Eos # (Auto) 0.1 (0.0-0.4) X10*3/uL Baso # (Auto) 0.0 (0.0-0.2) X10*3/uL Abs Immat Gran (auto) 0.01 (0.00-0.03) X10*3/uL Absolute Neuts (auto) 4.5 (2.0-8.3) x10*3/uL Absolute Nucleated RBC 0.000 (0.0-0.012) X10*3/uL Nucleated RBC % (auto) 0.0 (0.0-0.2) /100WBC Sodium 140 (135-145) mmol/L Potassium 4.8 (3.3-5.1) mmol/L Chloride 107 (96-108) mmol/L Carbon Dioxide 24 (22-29) mmol/L Anion Gap 14 (12-20) BUN 22 H (9-16) mg/dL Creatinine 1.36 (0.5-1.4) mg/dL Estim Creat Clear Calc 46.8 Estimated GFR 39 Random Glucose 134 H (60-115) mg/dL Calcium 9.3 (8.4-10.2) mg/dL Magnesium 1.8 (1.6-2.6) mg/dL Total Bilirubin 0.9 (0.0-1.0) mg/dL Direct Bilirubin 0.2 (0.0-0.5) mg/dL AST 34 H (5-31) U/L ALT 34 H (0-31) U/L Alkaline Phosphatase 88 (39-117) U/L Total Protein 6.4 L (6.5-8.0) g/dL Albumin 3.9 (3.5-5.0) g/dL Lipase 32 (8-78) U/L Urine Color Urine Appearance Urine pH (5.0-9.0) Ur Specific [place] (1.005-1.025) Urine Protein (Neg-Trace) mg/dL Urine Glucose (UA) (Negative) mg/dL Urine Ketones (Negative) mg/dL Urine Blood (Negative) Urine Nitrite (Negative) Ur Leukocyte Esterase (Negative) Urine RBC (0-2) /HPF Urine WBC (0-5) /HPF Ur Squamous Epith Cells (0-2) /HPF Urine Bacteria (None Seen) Hyaline Casts (0-2) /LPF COVID-19 (CLAY) Negative (Negative) COVID-19 Clin Com See Note 09/15/22 Range/Units 12:15 WBC (4.8-10.8) X10*3/uL RBC (4.20-5.50) X10*6/uL Hgb (12.0-16.0) g/dl Hct (37.0-47.0) % MCV (80.0-98.0) fL MCH (27.0-33.0) pg MCHC (31.0-35.0) g/dl RDW (11.0-16.0) % Plt Count (160-400) X10*3/uL MPV (9.4-12.3) fL Immature Gran % (Auto) (0.0-0.4) % Neut % (Auto) (45-73) % Lymph % (Auto) (20-40) % [place] % (Auto) (2-11) % Eos % (Auto) (0-4) % Baso % (Auto) (0-2) % Lymph # (Auto) (1.2-4.9) X10*3/uL [place] # (Auto) (0.1-1.2) X10*3/uL Eos # (Auto) (0.0-0.4) X10*3/uL Baso # (Auto) (0.0-0.2) X10*3/uL Abs Immat Gran (auto) (0.00-0.03) X10*3/uL Absolute Neuts (auto) (2.0-8.3) x10*3/uL Absolute Nucleated RBC (0.0-0.012) X10*3/uL Nucleated RBC % (auto) (0.0-0.2) /100WBC Sodium (135-145) mmol/L Potassium (3.3-5.1) mmol/L Chloride (96-108) mmol/L Carbon Dioxide (22-29) mmol/L Anion Gap (12-20) BUN (9-16) mg/dL Creatinine (0.5-1.4) mg/dL Estim Creat Clear Calc Estimated GFR Random Glucose (60-115) mg/dL Calcium (8.4-10.2) mg/dL Magnesium (1.6-2.6) mg/dL Total Bilirubin (0.0-1.0) mg/dL Direct Bilirubin (0.0-0.5) mg/dL AST (5-31) U/L ALT (0-31) U/L Alkaline Phosphatase (39-117) U/L Total Protein (6.5-8.0) g/dL Albumin (3.5-5.0) g/dL Lipase (8-78) U/L Urine Color Dark Yellow Urine Appearance Cloudy Urine pH 5.5 (5.0-9.0) Ur Specific [place] 1.025 (1.005-1.025) Urine Protein Trace (Neg-Trace) mg/dL Urine Glucose (UA) Negative (Negative) mg/dL Urine Ketones Trace (Negative) mg/dL Urine Blood Large (3+) H (Negative) Urine Nitrite Negative (Negative) Ur Leukocyte Esterase Moderate (2+) H (Negative) Urine RBC >20 H (0-2) /HPF Urine WBC 11-20 (0-5) /HPF Ur Squamous Epith Cells 0-2 (0-2) /HPF Urine Bacteria None Seen (None Seen) Hyaline Casts 0-2 (0-2) /LPF COVID-19 (CLAY) (Negative) COVID-19 Clin Com <LOPEZ Bolton Last Filed: 09/15/22 15:50> Independent Interpretation I performed an independent interpretation of an: CT Scan <LOPEZ Bolton Last Filed: 09/15/22 15:50> Interpretation: FINDINGS: LOWER THORAX: Included lung bases are clear. HEPATOBILIARY: No focal hepatic lesions. No biliary ductal dilatation. GALLBLADDER: Gallbladder has been removed. SPLEEN: Spleen is normal in size. PANCREAS: No focal mass or ductal dilatation. STOMACH AND GASTROINTESTINAL TRACT: Stomach is grossly unremarkable. There is no bowel distention or thickening. No CT evidence of appendicitis. ADRENALS: No adrenal nodules. KIDNEYS/URETERS: There is mild to moderate left renal hydronephrosis and hydroureter due to 5 mm stone lodged at the distal left UVJ. No perinephric fat stranding. No other stones. The right kidney is normal. URINARY BLADDER: Partially decompressed. PELVIC VISCERA: Unremarkable PERITONEUM: No free air or fluid. LYMPH NODES: No lymphadenopathy. VASCULAR:Abdominal aorta normal in size, no aneurysm found. BONES, ABDOMINAL WALL AND SOFT TISSUES: Age-appropriate changes of the spine and skeletal system, no destructive osteolytic or osteosclerotic bone lesion found CT/CT abdomen pelvis wo IV con IMPRESSION: Mild to moderate left renal hydronephrosis and hydroureter due to 5 mm stone lodged at the distal left UVJ. <LOPEZ Bolton - Last Filed: 09/15/22 15:50> Radiology Impression Discussion of test interpretation with radiology: I have reviewed the radiologist's reading. <LOPEZ Bolton Last Filed: 09/15/22 15:50> Independent Historian Clinical information obtained from an independent historian. History obtained from or confirmed by: Spouse <LOPEZ Bolton Last Filed: 09/15/22 15:50> External Record Review External record reviewed: Inpatient record, Office record, Outpatient record, Prior outpatient labs, Prior outpatient radiology, Primary care record and Outside ED record <LOPEZ Bolton Last Filed: 09/15/22 15:50> Prescription Management I considered prescription management with: Pain Medication <LOPEZ Bolton - Last Filed: 09/15/22 15:50> Medications Administered Discontinued Medications Generic Name Dose Route Start Last Admin Trade Name Freq PRN Reason Stop Dose Admin Sodium Chloride 1,000 mls @ 999 mls/hr 09/15/22 12:15 09/15/22 13:03 Ns IV 09/15/22 13:15 999 mls/hr .Q1H1M VALERIE Administration Ketorolac Tromethamine 30 mg 09/15/22 12:42 09/15/22 13:03 Ketorolac Tromethamine 30 Mg/Ml Vial IVPUSH 09/15/22 12:43 30 mg ONCE ONE Administration Ondansetron HCl 4 mg 09/15/22 12:02 09/15/22 13:03 Ondansetron Hcl 4 Mg/2 Ml Vial IVPUSH 09/15/22 12:03 4 mg ONCE ONE Administration <LOPEZ Jean Last Filed: 09/15/22 12:05> Medications Administered Discontinued Medications Generic Name Dose Route Start Last Admin Trade Name Freq PRN Reason Stop Dose Admin Sodium Chloride 1,000 mls @ 999 mls/hr 09/15/22 12:15 09/15/22 13:03 Ns IV 09/15/22 13:15 999 mls/hr .Q1H1M VALERIE Administration Ketorolac Tromethamine 30 mg 09/15/22 12:42 09/15/22 13:03 Ketorolac Tromethamine 30 Mg/Ml Vial IVPUSH 09/15/22 12:43 30 mg ONCE ONE Administration Ondansetron HCl 4 mg 09/15/22 12:02 09/15/22 13:03 Ondansetron Hcl 4 Mg/2 Ml Vial IVPUSH 09/15/22 12:03 4 mg ONCE ONE Administration <LOPEZ Bolton - Last Filed: 09/15/22 15:50> Discharge Plan Discharge Clinical Impression: Hydronephrosis of left kidney, Left ureteral calculus <LOPEZ Jean Last Filed: 09/15/22 12:05> Patient Disposition: Home, Self-Care <LOPEZ Jean Last Filed: 09/15/22 12:05> Instructions: Hydronephrosis (ED), Ureteral Stones (ED) <LOPEZ Jean - Last Filed: 09/15/22 12:05> Prescriptions: New ketorolac 10 mg tablet 10 mg PO Q8H Qty: 14 0RF Rx Instructions: First dose given in the ER by IV and patient tolerated well prednisone 20 mg tablet 20 mg PO DAILY 5 Days Qty: 5 0RF tamsulosin [Flomax] 0.4 mg capsule 0.4 mg PO DAILY 5 Days Qty: 5 0RF ondansetron HCl 4 mg tablet 4 mg PO Q8H Qty: 14 0RF No Action ezetimibe-simvastatin 10-20 mg tablet 1 tab PO DAILY Qty: 90 0RF lisinopril 10 mg tablet 10 mg PO DAILY Qty: 90 1RF omega-3 fatty acids [Fish Oil Concentrate] 1,000 mg capsule 2,000 mg PO DAILY loratadine [Allergy Relief (loratadine)] 10 mg tablet,disintegrating 10 mg PO DAILY fluticasone propion-salmeterol [Advair Diskus] 250-50 mcg/dose blister with device 1 inh inhalation Q12H albuterol sulfate [ProAir HFA] 90 mcg/actuation HFA aerosol inhaler 2 puff inhalation Q6H PRN (Reason: bronchospasm) Qty: 6.7 1RF levofloxacin 500 mg tablet 500 mg PO DAILY Qty: 10 0RF levothyroxine 100 mcg tablet 100 mcg PO QAM 90 Days Qty: 90 3RF Rx Instructions: take in the morning on an empty stomach. do not eat or drink anything for 30 minutes afterwards except for water <LOPEZ Jean - Last Filed: 09/15/22 12:05> Referrals: Eldon Mena MD [Primary Care Provider] - 2 days Chester Shea MD [Physician] - (Call to make a follow-up appointment) <LOPEZ Jean - Last Filed: 09/15/22 12:05>
[2022-09-15 12:24] LABS: MANUAL DIFF FLAG NO
[2022-09-15 12:27] LABS: Appearance Urine Cloudy; Color Urine Dark Yellow; Glucose Urine UA Negative (Negative); Leukocyte Esterase Urine Moderate (2+) (Negative); Nitrite Urine Negative (Negative); PH 5.5 (5.0-9.0); Specific Gravity - Urine 1.025 (1.005-1.025); UMIC TRIGGER UACC YES; Urine Blood Large (3+) (Negative); Urine Ketones Trace mg/dL (Negative); Urine Protein Trace mg/dL (Neg-Trace)
[2022-09-15 12:29] LABS: Basophils Percent Auto 0.6 % (0-2); Eosinophils Absolute Auto 0.1 X10*3/uL (0.0-0.4); Hematocrit 42.7 % (37.0-47.0); Hemoglobin 14.5 g/dl (12.0-16.0); Imm Gran Abs Auto 0.01 X10*3/uL (0.00-0.03); Imm Gran Pct Auto 0.2 % (0.0-0.4); Lymphocytes Absolute Auto 1.5 X10*3/uL (1.2-4.9); Mean Corpuscular Hemoglobin 30.2 pg (27.0-33.0); Mean Platelet Volume 10.1 fL (9.4-12.3); Monocytes Absolute Auto 0.5 X10*3/uL (0.1-1.2); Monocytes Percent Auto 7.4 % (2-11); Neutrophils Absolute Auto 4.5 x10*3/uL (2.0-8.3); Neutrophils Percent Auto 67.8 % (45-73); Platelet Count 194 X10*3/uL (160-400); Red Cell Distribution Width 12.7 % (11.0-16.0); White Blood Count 6.6 X10*3/uL (4.8-10.8)
[2022-09-15 12:37] LABS: Bacteria Urine None Seen (None Seen); Hyaline Casts Urine 0-2 /LPF (0-2); RBC Urine >20 /HPF (0-2); Squamous Epithelial Cell Urine 0-2 /HPF (0-2); UACC Culture Trigger YES
[2022-09-15 12:41] LABS: COVID-19 Test Negative (Negative); IDNOW Serial# 16C4AD1C
[2022-09-15 12:43] LABS: Alanine Aminotransferase 34 U/L (0-31); Albumin Level 3.9 g/dL (3.5-5.0); Alkaline Phosphatase 88 U/L (39-117); Anion Gap 14 (12-20); Aspartate Amino Transferase 34 U/L (5-31); Bilirubin Direct 0.2 mg/dL (0.0-0.5); Bilirubin Total 0.9 mg/dL (0.0-1.0); Blood Urea Nitrogen 22 mg/dL (9-16); Calcium 9.3 mg/dL (8.4-10.2); Carbon Dioxide 24 mmol/L (22-29); Chloride 107 mmol/L (96-108); Creatinine Clr Calc Pharmacy 46.8; Estimated Glomerular Filt Rate 39; Glucose Random 134 mg/dL (60-115); Lipase 32 U/L (8-78); Magnesium 1.8 mg/dL (1.6-2.6); Potassium 4.8 mmol/L (3.3-5.1); Sodium 140 mmol/L (135-145); Total Protein 6.4 g/dL (6.5-8.0)
[2022-09-15] MEDS: 0.9 % Sodium Chloride 1,000 ML 999 ML IV (13:03)
[2022-09-15] MEDS: Ketorolac Tromethamine 30 MG/ML VIAL IVPUSH (13:03)
[2022-09-15] MEDS: ondansetron HCL 4 MG/2 ML VIAL IVPUSH (13:03)
[2022-09-15 13:35] VITALS: BP 142/80; PULSE 78; RESP 18; TEMP 36.6; O2SAT 93
== END 2022-09-15 16:15 | disposition home or self-care (01) ==
PROVIDERS: Physician Assistant; Emergency Provider Student in an Organized Health Care Education/Training Program; PCP Internal Medicine
DX: N13.2 Hydronephrosis with renal and ureteral calculous obstruction (principal); R10.32 Left lower quadrant pain; Z20.822 Contact with and (suspected) exposure to COVID-19; Z20.828 Contact with and (suspected) exposure to other viral communicable diseases; Z79.899 Other long term (current) drug therapy
CPT/HCPCS: 74176; 80048; 80076; 81001; 83690; 83735; 85025; 87086; 87635; 96361; 96374; 96375; 99284; J1885; J2405

== ENCOUNTER 2022-10-10 14:15 | Outpatient (REF) | payer MEDICARE, OTHER, SELFPAY ==
[2022-10-17 18:54] LABS: Stone Source KIDNEY STONE
== END 2022-10-10 14:16 | disposition home or self-care (01) ==
LOC: HO.LNP 14:15
PROVIDERS: PCP Internal Medicine; Visit Provider Nurse Practitioner Family
DX: N20.0 Calculus of kidney (principal); Z79.899 Other long term (current) drug therapy
CPT/HCPCS: 82365; 88300; 99202

== ENCOUNTER 2022-12-16 06:12 | Outpatient (REF) | payer MEDICARE, OTHER, SELFPAY ==
[2022-12-16 06:21] LABS: MANUAL DIFF FLAG NO
[2022-12-16 07:59] LABS: Basophils Percent Auto 0.8 % (0-2); Eosinophils Absolute Auto 0.1 X10*3/uL (0.0-0.4); Eosinophils Percent Auto 2.6 % (0-4); Hematocrit 44.3 % (37.0-47.0); Hemoglobin 14.8 g/dl (12.0-16.0); Imm Gran Abs Auto 0.01 X10*3/uL (0.00-0.03); Imm Gran Pct Auto 0.2 % (0.0-0.4); Lymphocytes Absolute Auto 2.4 X10*3/uL (1.2-4.9); Lymphocytes Percent Auto 47.8 % (20-40); Mean Corpuscular HGB Conc 33.4 g/dl (31.0-35.0); Mean Corpuscular Hemoglobin 30.5 pg (27.0-33.0); Mean Corpuscular Volume 91.2 fL (80.0-98.0); Mean Platelet Volume 11.2 fL (9.4-12.3); Monocytes Absolute Auto 0.4 X10*3/uL (0.1-1.2); Monocytes Percent Auto 7.9 % (2-11); Neutrophils Percent Auto 40.7 % (45-73); Platelet Count 192 X10*3/uL (160-400); Red Blood Count 4.86 X10*6/uL (4.20-5.50); Red Cell Distribution Width 12.5 % (11.0-16.0)
[2022-12-16 08:29] LABS: Alanine Aminotransferase 31 U/L (0-31); Alkaline Phosphatase 77 U/L (39-117); Anion Gap 12 (12-20); Aspartate Amino Transferase 27 U/L (5-31); Bilirubin Total 0.7 mg/dL (0.0-1.0); Blood Urea Nitrogen 13 mg/dL (9-16); Calcium 9.6 mg/dL (8.4-10.2); Carbon Dioxide 27 mmol/L (22-29); Chloride 107 mmol/L (96-108); Cholesterol 150 mg/dL; Estimated Glomerular Filt Rate > 60; Glucose Fasting 102 mg/dL (60-99); HDL Cholesterol 46 mg/dL; LDL Cholesterol Calculated 83 mg/dl; Potassium 4.5 mmol/L (3.3-5.1); Sodium 141 mmol/L (135-145); Total Protein 6.5 g/dL (6.5-8.0); Triglycerides 105 mg/dL
[2022-12-16 08:49] LABS: Free T4 (Free Thyroxine) 0.87 ng/dL (0.71-1.85); Thyroid Stimulating Hormone 3.59 uIU/mL (0.32-4.0); Vitamin D 25-OH Total 39.1 ng/mL (>30)
== END 2022-12-16 06:13 | disposition home or self-care (01) ==
LOC: HO.LAB 06:12
PROVIDERS: PCP Internal Medicine; Visit Provider Internal Medicine
DX: E55.9 Vitamin D deficiency, unspecified (principal); E78.00 Pure hypercholesterolemia, unspecified; I10 Essential (primary) hypertension; E03.9 Hypothyroidism, unspecified
CPT/HCPCS: 36415; 80053; 80061; 82306; 84439; 84443; 85025

== ENCOUNTER 2022-12-17 09:39 | Outpatient (AMB) | payer MEDICARE, OTHER, SELFPAY ==
--- NOTE | 2022-12-17 09:49 | MHC.PC.OV ---
Vital Signs 12/17/22 09:50 Height 5 ft 7 in Weight 208 lb BMI 32.6 BP 142/78 H Blood Pressure Location Lt brachial Position Sitting Pulse 87 Pulse Source Pulse Oximeter Pulse Oximetry (%) 98 Oxygen Delivery Method Room Air Intake Visit Reasons: 6m follow up Intake Note: Patient is here for a six months follow up. Automation Engineering Technician Required: No Accompanied by: Self / Same As Patient Allergies cortisone Allergy (Mild, Verified 07/08/23 09:32) swelling adhesive Allergy (Verified 07/08/23 09:32) Redness of Skin apple Allergy (Verified 07/08/23 09:32) Unknown carrot Allergy (Verified 07/08/23 09:32) Unknown angelo [cherries] Allergy (Verified 07/08/23 09:32) Unknown codeine Adverse Reaction (Severe, Verified 07/08/23 09:32) mental status change, dizziness, fuzzy gabapentin [Neurontin] Adverse Reaction (Severe, Verified 07/08/23 09:32) mental status changes tramadol Adverse Reaction (Severe, Verified 07/08/23 09:32) mental status change, dizziness, fuzzy Medication List - Last Reconciled 12/17/22 by Eldon Mena MD albuterol sulfate 90 mcg/actuation (ProAir HFA) 2 puffs inhalation Q6H PRN ezetimibe-simvastatin 10-20 mg 1 tab PO DAILY fluticasone propion-salmeterol 250-50 mcg/dose (Advair Diskus) 1 inh inhalation Q12H levothyroxine 100 mcg PO QAM 90 days lisinopril 10 mg PO DAILY loratadine (Allergy Relief (loratadine)) 10 mg PO DAILY Tobacco use date assessed: 12/17/22 Fall risk assessment: No Falls in past year HPI 6m follow up HPI Details Patient comes in today for her follow up visit States that she feels okay She denies any headaches or dizziness Denies any chest pains, no SOB No nausea/vomiting, no abdominal pain No change in bowel habits noted Needs her Albuterol inhaler Rx refilled Had her follow up labs done yesterday - to discuss her results [facility] Medical History Osteoarthritis of left hip COVID-19 Basal cell carcinoma GERD (gastroesophageal reflux disease) Sleep apnea History of TIA (transient ischemic attack) Obesity (BMI 30-39.9) Allergic rhinitis Nocturnal hypoxemia Lumbar degenerative disc disease Arthritis of sacroiliac joint Degenerative joint disease of left knee Asthma Aime's thyroiditis Hypothyroidism Pure hypercholesterolemia Benign essential hypertension Surgical History History of colonoscopy (~12/26/14) History of cholecystectomy History of excision of lesion History of total abdominal hysterectomy History of removal of cyst History of extraction of renal calculus History of tonsillectomy H/O knee surgery Family History Father No problems noted. Mother Stroke Hypertension CVD (cardiovascular disease) Diabetes mellitus Cancer Social History Household Members: Spouse Housing: Apartment Are you a primary grounds caretaker to a significant other at home: No Do you presently have visiting nurse or other home services: No Alcohol intake: current Alcohol intake frequency: holidays/special occasions only Patient Tobacco Use Status: Never used Tobacco e-Cigarette/Vaping Use: Never Used Second Hand Smoke Exposure: Yes service: No Current occupational status: retired Cognitive needs: No Hearing needs: No Vision needs: Yes (Glasses) Questionnaire PHQ-9 Over the last 2 weeks, how often have you been bothered by any of the following problems? 1. Little interest or pleasure in doing things: not at all 2. Feeling down, depressed, or hopeless: not at all 3. Trouble falling or staying asleep, or sleeping too much: not at all 4. Feeling tired or having little energy: not at all 5. Poor appetite or overeating: not at all 6. Feeling bad about yourself - or that you are a failure or have let yourself or your family down: not at all 7. Trouble concentrating on things, such as reading the newspaper or watching television: not at all 8. Moving or speaking so slowly that other people could have noticed. Or the opposite - being so fidgety or restless that you have been moving around a lot more than usual: not at all 9. Thoughts that you would be better off or of hurting yourself in some way: not at all Total score: 0 Depression Screening Interpretation: Negative [id number] - PHQ-9 Billing: Yes Source: Developed by Drs. Major Huertas, Harry Diaz and colleagues, with an educational halina from [employer]. Thrive Questionnaire Date Thrive assessed: 12/17/22 I am a: Patient What is your living situation today?: I have a steady place to live Within the past 12 months, did the food you bought not last and you didn't have the money to get more?: Never true Within the past 12 months, did you worry whether your food would run out before you got money to buy more?: Never true Do you have trouble paying for medicines?: No Do you have trouble getting transportation to medical appointments?: No Do you have trouble paying your heating and electricity bill?: No Do you have trouble taking care of your child, family member or friend?: No Do you have trouble with day-to-day activities such as bathing, preparing meals, shopping, managing finances, etc.?: No Are you currently unemployed and looking for a job?: No Are you interested in more education?: No Please select the resources that you would like help with: None Currently or been in a relationship where the following occur: no concerns reported AUDIT C Alcohol Use Questionnaire (AUDIT-C) 1. How often do you have a drink containing alcohol?: Monthly or less 2. How many drinks containing alcohol do you have on a typical day when you are drinking?: 1 or 2 Total Score: 1 Score Reviewed/Action Taken: Yes ALISA-7 AMB Questionnaire ALISA-7 Date ALISA - 7 assessed: 12/17/22 Feeling nervous, anxious, or on edge: 0 = Not at all Not being able to stop or control worryin = Not at all Worrying too much about different things: 0 = Not at all Trouble relaxin = Not at all Being so restless that it is hard to sit still: 0 = Not at all Becoming easily annoyed or irritable: 0 = Not at all Feeling afraid as if something awful might happen: 0 = Not at all Total ALISA-7 score (0-4 normal; 5-9 mild; 10-14 moderate; 15-21 severe): 0 Source: Developed by Alayna Batres Julian, Harry Monge and colleagues, with an educational halina from [employer]. Review of Systems Const Denies chills, Denies fatigue, Denies fever(s) and Denies headache(s) ENT Denies dysphagia, Denies dizziness, Denies otalgia, Denies headache(s), Reports hoarseness (on and off), Denies odynophagia and Denies sore throat Card Denies chest pain, Denies palpitations and Denies dyspnea Resp Denies cough and Denies dyspnea GI Denies abdominal pain, Denies constipation, Denies dysphagia, Denies heartburn, Denies diarrhea, Denies nausea, Denies odynophagia and Denies vomiting Denies difficulty voiding, Denies nocturia, Denies dysuria and Denies urinary urgency Skin/Breast Denies rash Neuro Denies dizziness and Denies headache(s) Endo Denies fatigue and Denies palpitations Physical exam (Primary Care) Vital Signs: Last Vital Signs Pulse 87 12/17/22 09:50 BP 142/78 H 12/17/22 09:50 Pulse Ox 98 12/17/22 09:50 Oxygen Delivery Method Room Air 12/17/22 09:50 BMI result Body Mass Index 32.6 Tobacco/Smoking Status: Tobacco use Status Tobacco use date assessed 12/17/22 12/17/22 09:56 Patient Tobacco Use Status Never used Tobacco 12/17/22 09:56 e-Cigarette/Vaping Use Never Used 12/17/22 09:56 PHQ-9: PHQ-9 Score PHQ-9: Total score 0 12/17/22 10:33 Depression Screening Interpretation: Negative Thrive Assessment: Date of Thrive Assessment Date Thrive assessed 12/17/22 12/17/22 09:56 Currently or been in a relationship where the following occur: no concerns reported Const General: no acute distress and alert HENMT Ears: TM's normal bilaterally and EAC's normal Throat: Yes posterior oropharynx normal and Yes tonsils normal (no TP congestion) Neck Neck: Yes no lymphadenopathy and Yes supple Resp Auscultation: clear to auscultation bilaterally, no rales and no wheezes Cardio Rate: regular rate Rhythm: regular rhythm Heart sounds: no murmurs GI Palpation (GI): Soft to palpation and nontender Auscultation: normal bowel sounds Skin General skin exam: no rashes or lesions noted Extrem General: Yes no clubbing, cyanosis or edema Results Reviewed Results Reviewed: Laboratory Tests 12/16/22 12/16/22 06:21 06:21 WBC 5.0 Hgb 14.8 Hct 44.3 Plt Count 192 Sodium 141 Potassium 4.5 Creatinine 0.77 Estimated GFR > 60 Fasting Glucose 102 H Calcium 9.6 AST 27 ALT 31 Triglycerides 105 Cholesterol 150 LDL Cholesterol, Calc 83 HDL Cholesterol 46 25-OH Vitamin D Total 39.1 TSH 3.59 Free T4 0.87 Assessment and Plan Assessment & Plan (1) Pure hypercholesterolemia: Code(s): E78.00 - Pure hypercholesterolemia, unspecified Plan: Results of her labs done yesterday reviewed and discussed with patient Reinforced low cholesterol diet Continue Ezetimibe-Simvastatin 10-20 mg (Vytorin) QD Will recheck her labs and fasting lipids in 6 months for follow-up (2) Benign essential hypertension: Code(s): I10 - Essential (primary) hypertension Plan: Reinforced low sodium diet - goal is systolic BP of at least 130 mm or less Continue Lisinopril 10 mg QD (3) Asthma: Code(s): J45.909 - Unspecified asthma, uncomplicated Qualifiers: Asthma complication type: uncomplicated Asthma persistence: persistent Asthma severity: moderate Qualified Code(s): J45.40 - Moderate persistent asthma, uncomplicated Plan: Mostly due to exercise-induced asthma, confirmed on PFTs done back in July 2022 Continue Albuterol HFA 1 to 2 inhalations PRN - Rx refilled (4) Chronic hoarseness: Code(s): R49.0 - Dysphonia Plan: Is most likely due to unilateral vocal cord paralysis She was previously referred to ENT for further evaluation and management, but was advised that there may not be much in terms of intervention that we can do, especially since she has no trouble swallowing or breathing We have not yet received any correspondence or reports from ENT so far (5) Hypothyroidism: Code(s): E03.9 - Hypothyroidism, unspecified Qualifiers: Hypothyroidism type: due to Aime's thyroiditis Qualified Code(s): E03.8 - Other specified hypothyroidism; E06.3 - Autoimmune thyroiditis Plan: TFTs remain normal on her recent labs Continue Levothyroxine 100 mcg QD (6) Aime's thyroiditis: Code(s): E06.3 - Autoimmune thyroiditis Plan: Will continue to monitor her TFTs regularly Follow-up with endocrinology as scheduled (7) Impaired fasting glucose: Code(s): R73.01 - Impaired fasting glucose Plan: HgbA1c was normal at 5.7% when checked previously; her FBS was at 102 mg/dl on her labs done yesterday Reinforced low calorie diet /exercise as tolerated (8) Degenerative joint disease of left knee: Code(s): M17.12 - Unilateral primary osteoarthritis, left knee Qualifiers: Osteoarthritis type: primary Qualified Code(s): M17.12 - Unilateral primary osteoarthritis, left knee Plan: Follow up with Orthopedics as scheduled - has been recommend to undergo knee arthroplasty recently but patient is still debating on what she wants to do (9) Lumbar degenerative disc disease: Code(s): M51.36 - Other intervertebral disc degeneration, lumbar region Plan: Reinforced activity and weight lifting restrictions to minimize her back symptoms (10) Arthritis of sacroiliac joint: Code(s): M47.818 - Spondylosis without myelopathy or radiculopathy, sacral and sacrococcygeal region Plan: Continue Tizanidine 4 mg every 8 hours PRN (11) Nocturnal hypoxemia: Code(s): G47.34 - Idiopathic sleep related nonobstructive alveolar hypoventilation Plan: Patient has not had to use her oxygen when sleeping at night for years now and states that she has not had any problems without it so far Discussed that this may actually be related to her unilateral vocal cord paralysis (12) Allergic rhinitis: Code(s): J30.9 - Allergic rhinitis, unspecified Qualifiers: Allergic rhinitis seasonality: unspecified Allergic rhinitis trigger: unspecified Qualified Code(s): J30.9 - Allergic rhinitis, unspecified Plan: Continue OTC Loratadine 10 mg daily PRN (13) Elevated LFTs: Code(s): R79.89 - Other specified abnormal findings of blood chemistry Plan: Improved; were most likely due to fatty liver changes related to her weight LFTs have remained normal on her recent labs and will continue to monitor her LFTs regularly (14) Obesity (BMI 30-39.9): Code(s): E66.9 - Obesity, unspecified Plan: Reinforced diet/exercise as tolerated /lose weight Plan To return in 6 months for her next annual physical examination Orders: Orders Lipid Panel 6 Months E78.00 - Pure hypercholesterolemia, unspecified Complete Blood Count Auto Diff 6 Months I10 - Essential (primary) hypertension Free T4 (Free Thyroxine) 6 Months E03.9 - Hypothyroidism, unspecified Vitamin D 25-OH Total 6 Months E55.9 - Vitamin D deficiency, unspecified UA CC w/rflx Micro + Cult 6 Months R30.0 - Dysuria Comprehensive [place]. Panel Fast 6 Months E78.00 - Pure hypercholesterolemia, unspecified Thyroid Stimulating Hormone 6 Months E03.9 - Hypothyroidism, unspecified Medications: Changed From albuterol sulfate 90 mcg/actuation 2 puffs inhalation Q6H PRN 6.7 grams 1RF bronchospasm To albuterol sulfate 90 mcg/actuation 2 puffs inhalation Q6H PRN 6.7 grams 1RF bronchospasm Coding Level of Care Code Est Pt Level 4 (66605) Diagnoses Pure hypercholesterolemia E78.00 Benign essential hypertension I10 Moderate persistent asthma without complication J45.40 Asthma complication type: uncomplicated Asthma persistence: persistent Asthma severity: moderate Chronic hoarseness R49.0 Hypothyroidism due to Aime's thyroiditis E03.8; E06.3 Hypothyroidism type: due to Aime's thyroiditis Aime's thyroiditis E06.3 Impaired fasting glucose R73.01 Primary osteoarthritis of left knee M17.12 Osteoarthritis type: primary Lumbar degenerative disc disease M51.36 Arthritis of sacroiliac joint M47.818 Nocturnal hypoxemia G47.34 Allergic rhinitis, unspecified seasonality, unspecified trigger J30.9 Allergic rhinitis seasonality: unspecified Allergic rhinitis trigger: unspecified Elevated LFTs R79.89 Obesity (BMI 30-39.9) E66.9
[2022-12-17 09:50] VITALS: BP 142/78; PULSE 87; O2SAT 98; BMI 32.6
== END 2022-12-17 10:40 | disposition home or self-care (01) ==
LOC: HO.HMGH 09:39
PROVIDERS: PCP Internal Medicine; Visit Provider Internal Medicine
DX: E78.00 Pure hypercholesterolemia, unspecified (principal); I10 Essential (primary) hypertension; E66.9 Obesity, unspecified; Z68.32 Body mass index [BMI] 32.0-32.9, adult; M17.12 Unilateral primary osteoarthritis, left knee; J45.40 Moderate persistent asthma, uncomplicated; R49.0 Dysphonia; E03.8 Other specified hypothyroidism; E06.3 Autoimmune thyroiditis; R73.01 Impaired fasting glucose; M51.36 Other intervertebral disc degeneration, lumbar region; M47.818 Spondylosis without myelopathy or radiculopathy, sacral and sacrococcygeal region
CPT/HCPCS: 99214

== ENCOUNTER 2023-02-14 12:13 | Outpatient (REF) | payer MEDICARE, OTHER, SELFPAY | END 2023-02-14 12:14 | disposition home or self-care (01) | LOC: HO.HMGCX 12:13 | PROVIDERS: PCP Internal Medicine; Visit Provider Internal Medicine | DX: S73.102A Unspecified sprain of left hip, initial encounter (principal); X58.XXXA Exposure to other specified factors, initial encounter; Y93.9 Activity, unspecified; Y92.9 Unspecified place or not applicable; Y99.9 Unspecified external cause status | CPT/HCPCS: 73502 ==

== ENCOUNTER 2023-03-10 08:15 | Outpatient (AMB) | payer MEDICARE, OTHER, SELFPAY ==
--- NOTE | 2023-03-10 08:24 | A.OFFVIS_ITS ---
Intake Vital Signs 03/10/23 08:25 Height 5 ft 7 in Weight 208 lb BMI 32.6 Intake Visit Reasons: Newprob-LT hip pain Intake Note: Jolene is a 67 year old female who presents today for a new problem visit with complaints of left hip pain. Patient reports that she has had ongoing pain in the left hip for about 1 month now. denies injury. She was recently seen at the [facility]. She has no previous therapies. She explains that she has pain that wraps round the lateral aspect of the left hip and is felt like a burning pain. The leg occasionally gives out on her. Allergies cortisone Allergy (Mild, Verified 03/10/23 08:33) swelling apple Allergy (Verified 03/10/23 08:33) Unknown carrot Allergy (Verified 03/10/23 08:33) Unknown angelo [cherries] Allergy (Verified 03/10/23 08:33) Unknown codeine Adverse Reaction (Severe, Verified 03/10/23 08:33) mental status change, dizziness, fuzzy gabapentin [Neurontin] Adverse Reaction (Severe, Verified 03/10/23 08:33) mental status changes tramadol Adverse Reaction (Severe, Verified 03/10/23 08:33) mental status change, dizziness, fuzzy HPI Newprob-LT hip pain HPI Details Jolene is a 67 year old woman who presents with ~1 month left hip pain. She complains of pain primarily in the lateral aspect of her hip, which she describes as burning. She says this pain occasionally goes down into her groin, and occurs with weight-bearing activities. She says her leg gives way on her occasionally, she feels her knee pops out on her occasionally. She denies any LBP, but has some pain in her buttocks. She has known left knee OA and says she is limping while walking. When she was last seen we discussed a TKA, but this did not happen. She says she has retired and is sitting often at home. She does try to use her treadmill for ~1 hour daily, depending on the heat. She denies any prior treatment. She has a hx of staph infections and says she may be allergic to cortisone injections. She goes on vacation in the next few weeks, and will be spent on a beach. She says walking on the sand is very difficult and she is often dragging her left leg by the end of the day. [facility] Medical History Allergic rhinitis Arthritis of sacroiliac joint Asthma Benign essential hypertension Bilateral lower extremity edema Degenerative joint disease of left knee Elevated LFTs Hair loss Aime's thyroiditis Hypothyroidism Impaired fasting glucose Lumbar degenerative disc disease Nocturnal hypoxemia Obesity (BMI 30-39.9) Pure hypercholesterolemia Surgical History H/O knee surgery History of cholecystectomy History of excision of lesion History of extraction of renal calculus History of removal of cyst History of tonsillectomy History of total abdominal hysterectomy Family History Father No problems noted. Mother Stroke Hypertension CVD (cardiovascular disease) Diabetes mellitus Cancer Social History Housing: Apartment Alcohol intake: current Alcohol intake frequency: holidays/special occasions only Patient Tobacco Use Status: Never used Tobacco e-Cigarette/Vaping Use: Never Used Second Hand Smoke Exposure: Yes service: No Current occupational status: retired Cognitive needs: No Hearing needs: No Vision needs: Yes (Glasses) Review of Systems Const All systems reviewed & are unremarkable except as noted in HPI and below Physical Exam Vital Signs: BMI result Body Mass Index 32.6 Const General: no acute distress, alert and awake Orientation/consciousness: patient oriented x3 HEENT Head: Yes normocephalic and Yes atraumatic Eyes EOM: EOMs intact bilaterally Resp Effort & Inspection: normal respiratory effort and able to speak in complete sentences Cardio Jugular venous distension: no JVD Skin General skin exam: turgor normal Rashes: no rashes Neuro General: patient oriented x3 Extrem Other: Left Hip: + impingement Good ROM - [facility] Left Knee: TTP medial compartment & retropatellar Well-healed lateral patellofemoral scar Psych Appearance: grossly normal Affect: normal affect Attitude: cooperative Results Reviewed Results Reviewed: I personally reviewed relevant radiographs. Mild left hip osteoarthritis Mild degenerative change of the medial joint space compartments of both knees as well as the left patellofemoral joint as described. Assessment & Plan Assessment & Plan (1) Osteoarthritis of left hip: Code(s): M16.12 - Unilateral primary osteoarthritis, left hip Plan: This is a 67 year old woman with mild left hip OA. She has pain with daily activity, primarily with ambulation and weight-bearing. Her pain is localized in the lateral aspect of her hip, and radiates occasionally into her groin. Her gait mechanics are poor, and may be in relation to her knee OA. She denies any treatment. I discussed her diagnosis and treatment options. I recommend PT, NSAIDs, and treatment for her knee. I ordered PT for stretching, strengthening, and to normalize gait mechanics. (2) Osteoarthritis of left knee: Code(s): M17.12 - Unilateral primary osteoarthritis, left knee Plan: Moderate left knee OA. Pain with daily activity & antalgic gait. She stays active and her pain has improved since she retired, but she continues to feel limited in her ADLs. She says she is allergic to Cortisone injections and declined any at this time. I recommend a left TKA, however she has a Hx of staph infections and will need to be tested prior to surgery. I ordered lab work & PT, and she will speak with Radha for more information about this procedure. She will follow up in 3 weeks for aspiration. Plan Scribed for Fabio Sparks MD by Lazaro Figueroa, medical records coder, on 03/10/23 at 8:50 AM, EST. Orders: Orders Erythrocyte Sedimentation Rate 03/10/23 M17.12 - Unilateral primary osteoarthritis, left knee CRP High Sensitivity 03/10/23 M17.12 - Unilateral primary osteoarthritis, left knee Coding Level of Care Code Est Pt Level 4 (94505) Diagnoses Osteoarthritis of left hip M16.12 Osteoarthritis of left knee M17.12
[2023-03-10 08:25] VITALS: BMI 32.6
== END 2023-03-10 09:11 | disposition home or self-care (01) ==
PROVIDERS: PCP Internal Medicine; Visit Provider Orthopaedic Surgery
DX: M16.12 Unilateral primary osteoarthritis, left hip (principal); M17.12 Unilateral primary osteoarthritis, left knee
CPT/HCPCS: 99214

== ENCOUNTER → 2023-03-10 08:15 | Outpatient (BNVA) | payer MEDICARE, OTHER, SELFPAY | PROVIDERS: PCP Internal Medicine; Visit Provider Orthopaedic Surgery | DX: M16.12 Unilateral primary osteoarthritis, left hip (principal); M17.12 Unilateral primary osteoarthritis, left knee | CPT/HCPCS: 36415; 85652; 86141; 99212 ==

== ENCOUNTER 2023-03-10 09:36 | Outpatient (REF) | payer MEDICARE, OTHER, SELFPAY ==
[2023-03-10 11:25] LABS: Erythrocyte Sedimentation Rate 7 MM/HR (0-20)
[2023-03-12 17:53] LABS: CRP High Sensitivity 2.6 mg/L
== END 2023-03-10 09:37 | disposition home or self-care (01) ==
LOC: HO.10HDL 09:36
PROVIDERS: Visit Provider Orthopaedic Surgery
DX: M17.12 Unilateral primary osteoarthritis, left knee (principal); M16.12 Unilateral primary osteoarthritis, left hip
CPT/HCPCS: 36415; 85652; 86141

== ENCOUNTER 2023-03-31 10:57 | Outpatient (AMB) | payer MEDICARE, OTHER, SELFPAY ==
--- NOTE | 2023-03-31 11:18 | A.OFFVIS_ITS ---
Intake Intake Visit Reasons: aspirate LT Knee Intake Note: Jolene is a 67 year old female who presents today for a follow up of her left knee. She reports that the left knee is significantly painful. She is booked for a Left TKA 05/20/2023. Allergies cortisone Allergy (Mild, Verified 03/10/23 08:33) swelling apple Allergy (Verified 03/10/23 08:33) Unknown carrot Allergy (Verified 03/10/23 08:33) Unknown angelo [cherries] Allergy (Verified 03/10/23 08:33) Unknown codeine Adverse Reaction (Severe, Verified 03/10/23 08:33) mental status change, dizziness, fuzzy gabapentin [Neurontin] Adverse Reaction (Severe, Verified 03/10/23 08:33) mental status changes tramadol Adverse Reaction (Severe, Verified 03/10/23 08:33) mental status change, dizziness, fuzzy HPI aspirate LT Knee HPI Details Jolene is a 67 year old woman with left knee OA, who presents for a pre-op Synovasure aspiration due to a hx of staph infections. She says her knee is very painful and limits her daily activity. She is scheduled for a left TKA on 05/20/23. PFSH Medical History Allergic rhinitis Arthritis of sacroiliac joint Asthma Benign essential hypertension Bilateral lower extremity edema Degenerative joint disease of left knee Elevated LFTs Hair loss Aime's thyroiditis Hypothyroidism Impaired fasting glucose Lumbar degenerative disc disease Nocturnal hypoxemia Obesity (BMI 30-39.9) Pure hypercholesterolemia Surgical History H/O knee surgery History of cholecystectomy History of excision of lesion History of extraction of renal calculus History of removal of cyst History of tonsillectomy History of total abdominal hysterectomy Family History Father No problems noted. Mother Stroke Hypertension CVD (cardiovascular disease) Diabetes mellitus Cancer Social History Housing: Apartment Alcohol intake: current Alcohol intake frequency: holidays/special occasions only Patient Tobacco Use Status: Never used Tobacco e-Cigarette/Vaping Use: Never Used Second Hand Smoke Exposure: Yes service: No Current occupational status: retired Cognitive needs: No Hearing needs: No Vision needs: Yes (Glasses) Review of Systems Const All systems reviewed & are unremarkable except as noted in HPI and below Physical Exam Const General: no acute distress, alert and awake Orientation/consciousness: patient oriented x3 HEENT Head: Yes normocephalic and Yes atraumatic Eyes EOM: EOMs intact bilaterally Resp Effort & Inspection: normal respiratory effort and able to speak in complete sentences Cardio Jugular venous distension: no JVD Skin General skin exam: turgor normal Rashes: no rashes Neuro General: patient oriented x3 Extrem Other: Left Knee: Skin C/D/I No effusion Psych Appearance: grossly normal Affect: normal affect Attitude: cooperative Office Procedures Joint Injection/Drain Joint Injection/Drain Details: Aspiration Primary Site: left knee Prep: site was prepped using aseptic technique Approach Used: lateral parapatellar Procedure: The patient tolerated the procedure well Coding 37023 - Large joint Procedure code (CPT) selection complete Results Reviewed Results Reviewed: I personally reviewed relevant radiographs. Mild degenerative change of the medial joint space compartments of both knees as well as the left patellofemoral joint as described. Assessment & Plan Assessment & Plan (1) Osteoarthritis of left knee: Code(s): M17.12 - Unilateral primary osteoarthritis, left knee Plan: This is a 67 year old woman with moderate left knee OA. She has pain with daily activity & an antalgic gait. She stays active and her pain has improved since she retired, but she continues to feel limited in her ADLs. She says she is allergic to Cortisone injections and declined any at this time. I attempted to aspirate her left knee for Synovasure testing, but this was a dry aspiration. We will proceed forward with left TKA, which she is scheduled for, DOS: 05/20/23. She will follow up for her scheduled pre-op appointment. Plan Scribed for Fabio Sparks MD by Lazaro Figueroa medical imaging technician, on 03/31/23 at 1:30 PM, EST. Coding Level of Care Code Est Pt Level 3 (93644) Diagnoses Osteoarthritis of left knee M17.12 CPT Codes Coding - 89340 Large joint: 75141 - Large joint ([id number])
== END 2023-03-31 12:03 | disposition home or self-care (01) ==
PROVIDERS: PCP Internal Medicine; Visit Provider Orthopaedic Surgery
DX: M17.12 Unilateral primary osteoarthritis, left knee (principal)
CPT/HCPCS: 20610; 99213

== ENCOUNTER → 2023-03-31 10:57 | Outpatient (BNVA) | payer MEDICARE, OTHER, SELFPAY | PROVIDERS: PCP Internal Medicine; Visit Provider Orthopaedic Surgery | DX: M17.12 Unilateral primary osteoarthritis, left knee (principal) | CPT/HCPCS: 20610; 99212 ==

== ENCOUNTER 2023-04-02 07:48 | Outpatient (REF) | payer MEDICARE, OTHER, SELFPAY ==
--- NOTE | ~2023-04-02 | US_ITS ---
EXAMINATION: US RETROPERITONEAL LIMITED (RENAL ONLY) CLINICAL INFORMATION: Calculus of kidney. COMPARISON: CT abdomen and pelvis 09/15/2022. TECHNIQUE: Real-time imaging of the kidneys. Technically limited study secondary to body habitus. FINDINGS: RIGHT KIDNEY: 11.8 x 5.4 x 6.1 cm (SAG x AP x TRV). The kidney is normal in size, contour, and echogenicity. Renal cortical thickness is normal. No calculi or focal parenchymal lesions. No hydronephrosis. LEFT KIDNEY: 11.0 x 5.0 x 5.8 cm (SAG x AP x TRV). The kidney is normal in size, contour, and echogenicity. Renal cortical thickness is normal. No calculi or focal parenchymal lesions. No hydronephrosis. US/US renal BI IMPRESSION: Unremarkable examination.
== END 2023-04-02 07:49 | disposition home or self-care (01) ==
LOC: HO.US 07:48
PROVIDERS: PCP Internal Medicine; Visit Provider Nurse Practitioner Family
DX: N20.0 Calculus of kidney (principal)
CPT/HCPCS: 76775

== ENCOUNTER 2023-04-15 08:35 | Outpatient (AMB) | payer MEDICARE, OTHER, SELFPAY ==
--- NOTE | 2023-04-15 08:41 | A.OFFVIS_ITS ---
Intake Intake Visit Reasons: 6m follow up(SET) Intake Note: Patient is present for follow up ultrasound/ureteral stones (imaging 04/02/23) Urology Medications: none Blood Thinner: none Sql Architect Required: No Accompanied by: Self / Same As Patient Allergies cortisone Allergy (Mild, Verified 04/15/23 09:24) swelling apple Allergy (Verified 04/15/23 09:24) Unknown carrot Allergy (Verified 04/15/23 09:24) Unknown angelo [cherries] Allergy (Verified 04/15/23 09:24) Unknown codeine Adverse Reaction (Severe, Verified 04/15/23 09:24) mental status change, dizziness, fuzzy gabapentin [Neurontin] Adverse Reaction (Severe, Verified 04/15/23 09:24) mental status changes tramadol Adverse Reaction (Severe, Verified 04/15/23 09:24) mental status change, dizziness, fuzzy Medication List - Last Reconciled 04/15/23 by ESTEFANI Velasquez-BARBIE albuterol sulfate 90 mcg/actuation 2 puffs inhalation Q6H PRN ezetimibe-simvastatin 10-20 mg 1 tab PO DAILY fluticasone propion-salmeterol 250-50 mcg/dose (Advair Diskus) 1 inh inhalation Q12H levothyroxine 100 mcg PO QAM 90 days lisinopril 10 mg PO DAILY loratadine (Allergy Relief (loratadine)) 10 mg PO DAILY HPI HPI Comments History of Present Illness Details Leora is a pleasant 67-year-old female patient of Dr. Shelly boss. She presents to the office today for follow-up of her nephrolithiasis. In discussion with the patient today she reports to be doing and feeling well. Recent renal imaging results reviewed with the patient today. Bilateral kidneys with no calculi, lesions, and or hydronephrosis noted. When asked patient denies any bothersome urinary issues or concerns at this time. She discusses her upcoming surgery in the next month with Dr. Sparks for left knee replacement. When asked she denies urinary urgency, urinary frequency, incontinence, nocturia, hematuria, dysuria, foul smelling urine, changes to urinary stream, flank pain, fever, and or chills. She is happy with her current voiding parameters. In office urinalysis results reviewed with the patient today. Discussed further workup with 24 hour urinalysis as well as labs however patient declines at this time. She believes this to be an isolated incident as her last stone was over for 35 years ago. Discussed benefits of stone workup for prevention and stone burden. When asked patient reports to be drinking adequate amount of fluid daily. She also reports adding lemon to her water daily. She offers no issues or complaints at this time. [facility] Medical History Allergic rhinitis Arthritis of sacroiliac joint Asthma Benign essential hypertension Bilateral lower extremity edema Degenerative joint disease of left knee Elevated LFTs Hair loss Aime's thyroiditis Hypothyroidism Impaired fasting glucose Lumbar degenerative disc disease Nocturnal hypoxemia Obesity (BMI 30-39.9) Pure hypercholesterolemia Surgical History H/O knee surgery History of cholecystectomy History of excision of lesion History of extraction of renal calculus History of removal of cyst History of tonsillectomy History of total abdominal hysterectomy Family History Father No problems noted. Mother Stroke Hypertension CVD (cardiovascular disease) Diabetes mellitus Cancer Social History Housing: Apartment Alcohol intake: current Alcohol intake frequency: holidays/special occasions only Patient Tobacco Use Status: Never used Tobacco e-Cigarette/Vaping Use: Never Used Second Hand Smoke Exposure: Yes service: No Current occupational status: retired Cognitive needs: No Hearing needs: No Vision needs: Yes (Glasses) Review of Systems Const All systems reviewed & are unremarkable except as noted in HPI and below Reports no additional complaints Eyes Reports no additional complaints ENT Reports no additional complaints Card Reports no additional complaints Resp Reports no additional complaints GI Reports no additional complaints Reports as per HPI Musc Details: Patient reports a history of MS and will be undergoing left knee replacement within the next month with Dr. Sparks. Neuro Reports no additional complaints Psych Reports no additional complaints Endo Reports no additional complaints Ramakrishna/Lymph Reports no additional complaints Aller/Immun Reports no additional complaints Physical Exam Const General: cooperative, healthy appearing, comfortable, no acute distress, well developed, alert and awake Orientation/consciousness: patient oriented x3 Limitations: no limitations HEENT Head: Yes normal to inspection, Yes normocephalic and Yes atraumatic Ears: hearing grossly normal bilaterally Eyes General: appearance normal, both eyes and all related structures Neck Neck: Yes normal visual inspection and Yes trachea midline Chest Chest palpation & inspection: normal inspection of the chest Resp Effort & Inspection: normal respiratory effort and able to speak in complete sentences Cardio Rate: regular rate GI Inspection: Yes normal to inspection General: Yes no CVA tenderness Back/Spine/Pelvis Back: no CVA tenderness Skin General skin exam: no rashes or lesions noted Neuro General: patient oriented x3 Extrem General: Yes normal to inspection Psych Appearance: grossly normal and well kempt Mental Status: mental status grossly normal Speech and movement: Normal speech and movement present and Clear speech present Affect: normal affect Attitude: cooperative Thought process: Normal thought process present Thought content: Normal thought content present Insight: Fair insight present (Psych) Results AMB Urinalysis, Automated UA Leukoctes 70 Duane/uL Last Edit by [employer] on 04/15/23 09:14 UA Nitrite Last Edit by [employer] on 04/15/23 09:14 UA Urobilinogen 0.2 mg/dL Last Edit by [employer] on 04/15/23 09:14 UA Protein 0 mg/dL Last Edit by [employer] on 04/15/23 09:14 UA pH 6.0 Last Edit by [employer] on 04/15/23 09:14 UA Blood 0 Chandrakant/uL Last Edit by [employer] on 04/15/23 09:14 UA Specific [place] 1.020 Last Edit by [employer] on 04/15/23 09:14 UA Ketone Negative Last Edit by [employer] on 04/15/23 09:14 UA Bilirubin 0 mg/dL Last Edit by [employer] on 04/15/23 09:14 UA Glucose 0 mg/dL Last Edit by [employer] on 04/15/23 09:14 Results Reviewed Results Reviewed: Laboratory Last Values Urine pH (Auto) 6.0 04/15/23 08:52 Specific [place] (Auto) 1.020 04/15/23 08:52 Urine Protein (Auto) 0 mg/dL 04/15/23 08:52 Glucose (UA)(Auto) 0 mg/dL 04/15/23 08:52 Urine Ketones (Auto) Negative 04/15/23 08:52 Urine Blood (Auto) 0 Chandrakant/uL 04/15/23 08:52 Urine Bilirubin (Auto) 0 mg/dL 04/15/23 08:52 Urine Urobilinogen (Auto) 0.2 mg/dL 04/15/23 08:52 Leukocyte Esterase (Auto) 70 Duane/uL 04/15/23 08:52 Date of Service: 04/02/23 EXAMINATION: US RETROPERITONEAL LIMITED (RENAL ONLY) FINDINGS: RIGHT KIDNEY: 11.8 x 5.4 x 6.1 cm (SAG x AP x TRV). The kidney is normal in size, contour, and echogenicity. Renal cortical thickness is normal. No calculi or focal parenchymal lesions. No hydronephrosis. LEFT KIDNEY: 11.0 x 5.0 x 5.8 cm (SAG x AP x TRV). The kidney is normal in size, contour, and echogenicity. Renal cortical thickness is normal. No calculi or focal parenchymal lesions. No hydronephrosis. IMPRESSION: Unremarkable examination. Assessment & Plan Assessment & Plan (1) Nephrolithiasis: Code(s): N20.0 - Calculus of kidney Plan In office urinalysis results reviewed with the patient today; as noted above. Recent renal imaging results reviewed with the patient today; as noted above. Patient denies any urological issues or concerns at this time. Discussed, educated, and stressed the importance of drinking plenty of water daily. Continue adding 1 oz of lemon juice the water daily. Renal ultrasound in 1 year. Follow-up in 1 year with imaging to be completed prior; or sooner with any issues, concerns, and or questions. Orders: Orders US renal BI 364 Days N20.0 - Calculus of kidney AMB Urinalysis Automated Today Z13.9 - Encounter for screening, unspecified Patient Instructions: The patient had an opportunity to ask questions regarding the treatment plan. All questions were answered. Physical exam, labs, and imaging were discussed and reviewed in detail. As well as risks, benefits, and discussion of treatment choices. No major barriers to understanding were identified. The patient expressed understanding and agreement with the above treatment plan. The patient was made aware they should contact our office by phone for worsening of their current condition, the appearance of new symptoms, or with any questions or concerns. Compliance is encouraged with any medications and follow up testing that is ordered. It is a privilege to be allowed the opportunity to participate in? your urological care.? Again, if you have any questions or concerns If you have any questions or concerns please do not hesitate to contact me. The office is [phone]. This note is constructed using voice recognition software. While every effort has been made to ensure accuracy care analyst errors may have been included. Yours sincerely, KATHERINE Velasquez Coding Level of Care Code Est Pt Level 3 (18316) Diagnoses Nephrolithiasis N20.0
== END 2023-04-15 09:27 | disposition home or self-care (01) ==
PROVIDERS: PCP Internal Medicine; Visit Provider Nurse Practitioner Family
DX: N20.0 Calculus of kidney (principal)
CPT/HCPCS: 99213

== ENCOUNTER → 2023-04-15 08:35 | Outpatient (BNVA) | payer MEDICARE, OTHER, SELFPAY | PROVIDERS: Visit Provider Nurse Practitioner Family | DX: N20.0 Calculus of kidney (principal) | CPT/HCPCS: 81003; 99212 ==

== ENCOUNTER → 2023-04-22 09:23 | Outpatient (BNVA) | payer MEDICARE, OTHER, SELFPAY | PROVIDERS: PCP Internal Medicine; Visit Provider Orthopaedic Surgery ==

== ENCOUNTER 2023-04-30 11:42 | Outpatient (AMB) | payer MEDICARE, OTHER, SELFPAY ==
[2023-04-30 11:43] VITALS: BP 138/82; PULSE 69; O2SAT 96; BMI 32.7
--- NOTE | 2023-04-30 11:43 | A.OFFPC_ITS ---
Vital Signs 04/30/23 11:43 Height 5 ft 7 in Weight 209 lb BMI 32.7 BP 138/82 Blood Pressure Location Lt brachial Position Sitting Pulse 69 Pulse Source Pulse Oximeter Temp Source Skin Pulse Oximetry (%) 96 Oxygen Delivery Method Room Air Intake Visit Reasons: [facility] Ortho/ Lt total knee Artheoplasty Intake Note: Patient is here for a Pre-op for left total knee arthroplasty scheduled with Dr. Fabio Sparks on 05/20/23. Dry Wall Finisher Required: No Allergies cortisone Allergy (Mild, Verified 04/30/23 11:57) swelling apple Allergy (Verified 04/30/23 11:57) Unknown carrot Allergy (Verified 04/30/23 11:57) Unknown angelo [cherries] Allergy (Verified 04/30/23 11:57) Unknown codeine Adverse Reaction (Severe, Verified 04/30/23 11:57) mental status change, dizziness, fuzzy gabapentin [Neurontin] Adverse Reaction (Severe, Verified 04/30/23 11:57) mental status changes tramadol Adverse Reaction (Severe, Verified 04/30/23 11:57) mental status change, dizziness, fuzzy Medication List - Last Reconciled 04/30/23 by ESTEFANI Escobar albuterol sulfate 90 mcg/actuation 2 puffs inhalation Q6H PRN ezetimibe-simvastatin 10-20 mg 1 tab PO DAILY fluticasone propion-salmeterol 250-50 mcg/dose (Advair Diskus) 1 inh inhalation Q12H levothyroxine 100 mcg PO QAM 90 days lisinopril 10 mg PO DAILY loratadine (Allergy Relief (loratadine)) 10 mg PO DAILY walker Folding Front wheeled walker Tobacco use date assessed: 04/30/23 Fall risk assessment: No Falls in past year Last assessed Fall Risk: 04/30/23 Dental Screening Dental Screen Date: 04/30/23 HPI [facility] Ortho/ Lt total knee Artheoplasty HPI Details Patient is a 67-year-old female who presents today for preop clearance. Patient of Dr. Mena Surgery: L TKA due to osteoarthritis of left knee Date: 05/20/2023 Surgeon: Dr. Sparks Location: [facility], [place], [place] Anaesthesia: General/spinal/block. Patient reports history of general anesthesia in the past that she tolerated well. Patient denies history of perioperative hypothermia or blood clotting disorders. She is not on anticoagulation. Medical history significant for hypertension, hypercholesterolemia, Aime's thyroiditis, asthma, lumbar degenerative disc disease, nocturnal hypoxemia - patient reports that she was given oxygen in the past and she was unable to tolerate this and returned O2, impaired fasting glucose, allergic rhinitis, obesity among others. Patient denies shortness of breath or chest pain. [facility] Medical History (Updated 04/30/23 @ 12:41 by ESTEFANI Escobar) History of TIA (transient ischemic attack) Hair loss Bilateral lower extremity edema Obesity (BMI 30-39.9) Elevated LFTs Allergic rhinitis Impaired fasting glucose Nocturnal hypoxemia Lumbar degenerative disc disease Arthritis of sacroiliac joint Degenerative joint disease of left knee Asthma Aime's thyroiditis Hypothyroidism Pure hypercholesterolemia Benign essential hypertension Surgical History History of cholecystectomy History of excision of lesion History of total abdominal hysterectomy History of removal of cyst History of extraction of renal calculus History of tonsillectomy H/O knee surgery Family History Father No problems noted. Mother Stroke Hypertension CVD (cardiovascular disease) Diabetes mellitus Cancer Social History Housing: Apartment Alcohol intake: current Alcohol intake frequency: holidays/special occasions only Patient Tobacco Use Status: Never used Tobacco e-Cigarette/Vaping Use: Never Used Second Hand Smoke Exposure: Yes service: No Current occupational status: retired Cognitive needs: No Hearing needs: No Vision needs: Yes (Glasses) Questionnaire PHQ-9 Over the last 2 weeks, how often have you been bothered by any of the following problems? 1. Little interest or pleasure in doing things: not at all 2. Feeling down, depressed, or hopeless: not at all 3. Trouble falling or staying asleep, or sleeping too much: not at all 4. Feeling tired or having little energy: not at all 5. Poor appetite or overeating: not at all 6. Feeling bad about yourself - or that you are a failure or have let yourself or your family down: not at all 7. Trouble concentrating on things, such as reading the newspaper or watching television: not at all 8. Moving or speaking so slowly that other people could have noticed. Or the opposite - being so fidgety or restless that you have been moving around a lot more than usual: not at all 9. Thoughts that you would be better off or of hurting yourself in some way: not at all Total score: 0 Depression Screening Interpretation: Negative 66162 - PHQ-9 Billing: Yes Source: Developed by Drs. Major Huertas, Alayna Jordan, Harry Monge and colleagues, with an educational halina from [employer]. Thrive Questionnaire Date Thrive assessed: 12/17/22 I am a: Patient What is your living situation today?: I have a steady place to live Within the past 12 months, did the food you bought not last and you didn't have the money to get more?: Never true Within the past 12 months, did you worry whether your food would run out before you got money to buy more?: Never true Currently or been in a relationship where the following occur: no concerns reported AUDIT C Alcohol Use Questionnaire (AUDIT-C) 1. How often do you have a drink containing alcohol?: Monthly or less 2. How many drinks containing alcohol do you have on a typical day when you are drinking?: 1 or 2 Total Score: 1 Score Reviewed/Action Taken: No ALISA-7 AMB Questionnaire ALISA-7 Date ALISA - 7 assessed: 12/17/22 Feeling nervous, anxious, or on edge: 0 = Not at all Not being able to stop or control worryin = Not at all Worrying too much about different things: 0 = Not at all Trouble relaxin = Not at all Being so restless that it is hard to sit still: 0 = Not at all Becoming easily annoyed or irritable: 0 = Not at all Feeling afraid as if something awful might happen: 0 = Not at all Total ALISA-7 score (0-4 normal; 5-9 mild; 10-14 moderate; 15-21 severe): 0 Source: Developed by Drs. Major Huertas, Harry Diaz and colleagues, with an educational halina from [employer]. ALISA-7 Assessment Billing ALISA-7 Assessment Tool: ALISA-7 Assessment 37504 Review of Systems Const Denies body aches, Denies chills, Denies fever(s) and Denies headache(s) ENT Denies dizziness, Denies otalgia, Denies headache(s), Denies nasal discharge, Denies sinus pain and Denies sore throat Card Denies chest pain, Denies edema, Denies lightheadedness and Denies dyspnea Resp Denies cough, Denies dyspnea and Denies wheezing GI Denies abdominal pain, Denies constipation, Denies diarrhea, Denies nausea and Denies vomiting Denies dysuria Musc Denies myalgias and Reports arthralgias Skin/Breast Denies rash Neuro Denies dizziness and Denies headache(s) Aller/Immun Denies wheezing Physical exam (Primary Care) Vital Signs: Last Vital Signs Pulse 69 04/30/23 11:43 BP 138/82 04/30/23 11:43 Pulse Ox 96 04/30/23 11:43 Oxygen Delivery Method Room Air 04/30/23 11:43 BMI result Body Mass Index 32.7 Tobacco/Smoking Status: Tobacco use Status Tobacco use date assessed 04/30/23 04/30/23 11:46 Patient Tobacco Use Status Never used Tobacco 04/30/23 11:46 e-Cigarette/Vaping Use Never Used 04/30/23 11:46 PHQ-9: PHQ-9 Score PHQ-9: Total score 0 05/01/23 17:40 Depression Screening Interpretation: Negative Thrive Assessment: Date of Thrive Assessment Date Thrive assessed 12/17/22 04/30/23 11:46 Currently or been in a relationship where the following occur: no concerns reported Const General: cooperative and no acute distress Orientation/consciousness: patient oriented x3 HENMT Head: Yes normocephalic and Yes atraumatic Ears: TM's normal bilaterally Face and sinus: Yes sinuses nontender Mouth: oropharynx normal and moist mucous membranes Throat: Yes posterior oropharynx normal Eyes General: appearance normal, both eyes and all related structures Pupils: Equal, round and reactive pupils present EOM: EOMs intact bilaterally Neck Neck: Yes normal visual inspection, Yes full ROM and Yes no lymphadenopathy Thyroid: Thyroid normal Resp Effort & Inspection: normal respiratory effort and able to speak in complete sentences Auscultation: clear to auscultation bilaterally, no crackles, no rales, no rhonchi and no wheezes Cardio Rate: regular rate Rhythm: regular rhythm Heart sounds: S1 normal heart sound present, S2 normal heart sound present and no murmurs GI Palpation (GI): Soft to palpation, not firm, nontender, no guarding, not rigid and no hepatosplenomegaly Auscultation: normal bowel sounds General: No CVA tenderness Back/Spine/Pelvis Back: No CVA tenderness Skin Other: Left knee with healed scars from previous surgery General skin exam: no rashes or lesions noted Neuro General: patient oriented x3 Cranial nerves: Yes Equal, round and reactive pupils present Gait exam (Neuro): Normal gait present Extrem Other: Left knee brace on General: Yes full ROM and No edema Results Reviewed Results Reviewed: 04/30/23 12:28 ECG 12 lead EKG Routine Laboratory Tests 04/30/23 13:10 WBC 5.8 RBC 4.97 Hgb 15.1 Hct 43.8 MCV 88.1 MCH 30.4 MCHC 34.5 RDW 12.6 Plt Count 206 MPV 10.7 Absolute Nucleated RBC 0.000 Nucleated RBC % (auto) 0.0 PT 12.2 INR 1.0 Sodium 141 Potassium 4.1 Chloride 106 Carbon Dioxide 26 Anion Gap 13 BUN 15 Creatinine 0.71 Estim Creat Clear Calc TNP Estimated GFR > 60 Random Glucose 81 Calcium 10.3 H D TSH 3.06 Assessment and Plan Assessment & Plan (1) Preoperative clearance: Code(s): Z01.818 - Encounter for other preprocedural examination Plan: METs > 4; RCRI Class 2 cardiovascular risk 0.9% for an intermediate risk surgery (recent blood work 04/2023) Regarding preop clearance, the patient is at acceptable risk for proposed surgery. Reviewed with the patient that no surgery is completely free of risk and that this examination is to assist the surgeon in reviewing informed consent. Postop care including DVT prophylaxis per surgeon. Patient is cleared for surgery. Patient is to take blood pressure and thyroid medications on the day of surgery with small sips of water and hold all other medications. Patient can use inhalers on the day of surgery. 04/30/2023 EKG with no acute findings. Ordering Physician: Breanna Neff Date of Service: 04/30/23 Procedure(s): ECG 12 lead EKG Accession Number(s): cc: Breanna Neff~ Test Reason : preop Blood Pressure : / mmHG Vent. Rate : 070 BPM Atrial Rate : 070 BPM P-R Int : 162 ms QRS Dur : 088 ms QT Int : 392 ms P-R-T Axes : 063 037 061 degrees QTc Int : 423 ms Normal sinus rhythm Normal ECG No previous ECGs available (2) Osteoarthritis of left knee: Code(s): M17.12 - Unilateral primary osteoarthritis, left knee Plan: Surgery: L TKA due to osteoarthritis of left knee Date: 05/20/2023 Surgeon: Dr. Sparks Location: [place], [place] (3) Obesity (BMI 30-39.9): Code(s): E66.9 - Obesity, unspecified Plan: BMI 32.7 Orders: Orders ECG 12 lead EKG 04/30/23 Z01.818 - Encounter for other preprocedural examination Prothrombin Time INR 04/30/23 Z01.818 - Encounter for other preprocedural examination TSH reflex Free T4 04/30/23 Z01.818 - Encounter for other preprocedural examination Basic Metabolic Panel 04/30/23 Z01.818 - Encounter for other preprocedural examination Complete Blood Count no Diff 04/30/23 Z.818 - Encounter for other preprocedural examination Coding Level of Care Code Est Pt Level 3 (94002) Diagnoses Preoperative clearance Z01.818 Osteoarthritis of left knee M17.12 Obesity (BMI 30-39.9) E66.9 Additional Codes ALISA-7 Assessment Billing - ALISA-7 Assessment Tool: ALISA-7 Assessment 54283 ([id number])
--- NOTE | 2023-04-30 12:28 | ECG_ITS ---
Test Reason : preop Blood Pressure : / mmHG Vent. Rate : 070 BPM Atrial Rate : 070 BPM P-R Int : 162 ms QRS Dur : 088 ms QT Int : 392 ms P-R-T Axes : 063 037 061 degrees QTc Int : 423 ms Normal sinus rhythm Normal ECG No previous ECGs available Referred By: Breanna Neff Electronically Signed By:YESICA MASSEY
== END 2023-04-30 14:51 | disposition home or self-care (01) ==
PROVIDERS: PCP Internal Medicine; Visit Provider Nurse Practitioner Family
DX: M17.12 Unilateral primary osteoarthritis, left knee (principal); Z01.818 Encounter for other preprocedural examination; E66.9 Obesity, unspecified; Z68.32 Body mass index [BMI] 32.0-32.9, adult
CPT/HCPCS: 99213

== ENCOUNTER 2023-05-05 09:15 | Outpatient (REF) | payer MEDICARE, OTHER, SELFPAY ==
--- NOTE | ~2023-05-05 | MM_ITS ---
EXAMINATION: MM SCREENING DIGITAL BREAST TOMOSYNTHESIS, BILATERAL CLINICAL INFORMATION: Screening. Asymptomatic. COMPARISON: Mammography: 02/25/2020, 02/19/2019, 08/23/2016, 09/30/2014, and dating back to 2011. TECHNIQUE: Digital breast tomosynthesis is performed in both the craniocaudal and mediolateral oblique views along with computer-aided detection (CAD). Synthesized 2D images are generated from the tomosynthesis. FINDINGS: There are scattered areas of fibroglandular density (ACR BI-RADS breast composition Category b). There are few skin calcifications noted. There are no suspicious masses, suspicious grouped calcifications, or areas of architectural distortion in either breast. The parenchymal pattern is stable from prior exams. There are no skin changes. There are no axillary abnormalities. MM/MM tomosynthesis screening BI IMPRESSION: No mammographic evidence of malignancy. ASSESSMENT: BI-RADS BI-RADS 1 - Negative RECOMMENDATION: Routine annual mammography screening. 1 year F/U This examination should not preclude the clinical evaluation of a suspicious palpable abnormality. This patient's information was entered into a reminder system with a target due date for their next mammogram.
== END 2023-05-05 09:16 | disposition home or self-care (01) ==
LOC: HO.MAMMO 09:15
PROVIDERS: PCP Internal Medicine; Visit Provider Internal Medicine
DX: Z12.31 Encounter for screening mammogram for malignant neoplasm of breast (principal)
CPT/HCPCS: 77063; 77067

== ENCOUNTER → 2023-05-05 09:30 | Outpatient (BNV) | payer MEDICARE, OTHER, SELFPAY | PROVIDERS: PCP Internal Medicine; Visit Provider Radiology Diagnostic Radiology | DX: Z12.31 Encounter for screening mammogram for malignant neoplasm of breast (principal) | CPT/HCPCS: 77063; 77067 ==

== ENCOUNTER 2023-05-15 12:40 | Outpatient (AMB) | payer MEDICARE, OTHER, SELFPAY ==
--- NOTE | 2023-05-15 12:55 | MHC.OFFVIS ---
Intake Vital Signs 05/15/23 12:58 Height 5 ft 7 in Weight 209 lb BMI 32.7 Intake Visit Reasons: Preop LT TKA 05/20/23 NE Intake Note: Jolene a 68 year old female who presents today for a preoperative visit for left TKA, DOS 05/20/23 NE. Pain management agreement reviewed and signed. Allergies cortisone Allergy (Mild, Verified 05/15/23 12:58) swelling adhesive Allergy (Verified 05/15/23 12:58) Redness of Skin apple Allergy (Verified 05/15/23 12:58) Unknown carrot Allergy (Verified 05/15/23 12:58) Unknown angelo [cherries] Allergy (Verified 05/15/23 12:58) Unknown codeine Adverse Reaction (Severe, Verified 05/15/23 12:58) mental status change, dizziness, fuzzy gabapentin [Neurontin] Adverse Reaction (Severe, Verified 05/15/23 12:58) mental status changes tramadol Adverse Reaction (Severe, Verified 05/15/23 12:58) mental status change, dizziness, fuzzy Medication List - Last Reconciled 05/15/23 by Tigre Carmona PA-C albuterol sulfate 90 mcg/actuation 2 puffs inhalation Q6H PRN ezetimibe-simvastatin 10-20 mg 1 tab PO DAILY levothyroxine 100 mcg PO QAM 90 days lisinopril 10 mg PO DAILY loratadine (Allergy Relief (loratadine)) 10 mg PO DAILY multivitamin with iron-mineral 2 tabs PO DAILY omega 0-diw-omn-fish oil 1,200 (144-216) mg (Fish Oil) 1 cap PO DAILY walker Folding Front wheeled walker HPI HPI Comments History of Present Illness Details Ms Meadows presents to the office today for preop visit. She is scheduled for left total knee arthroplasty with Dr. pSarks. She continues to have ongoing pain and difficulty with ambulation in the left knee, which is affecting her quality of life; therefore, she has elected to move forward with surgery. [facility] Medical History (Updated 05/15/23 @ 13:14 by Tigre Carmona PA-C) COVID-19 Basal cell carcinoma GERD (gastroesophageal reflux disease) Habitual snoring Sleep apnea History of TIA (transient ischemic attack) Hair loss Bilateral lower extremity edema Obesity (BMI 30-39.9) Elevated LFTs Allergic rhinitis Impaired fasting glucose Nocturnal hypoxemia Lumbar degenerative disc disease Arthritis of sacroiliac joint Degenerative joint disease of left knee Asthma Aime's thyroiditis Hypothyroidism Pure hypercholesterolemia Benign essential hypertension Surgical History History of cholecystectomy History of excision of lesion History of total abdominal hysterectomy History of removal of cyst History of extraction of renal calculus History of tonsillectomy H/O knee surgery Family History Father No problems noted. Mother Stroke Hypertension CVD (cardiovascular disease) Diabetes mellitus Cancer Social History Housing: Apartment Are you a primary direct care professional to a significant other at home: No Do you presently have visiting nurse or other home services: No Alcohol intake: current Alcohol intake frequency: holidays/special occasions only Patient Tobacco Use Status: Never used Tobacco e-Cigarette/Vaping Use: Never Used Second Hand Smoke Exposure: Yes service: No Current occupational status: retired Cognitive needs: No Hearing needs: No Vision needs: Yes (Glasses) Review of Systems Const All systems reviewed & are unremarkable except as noted in HPI and below Physical Exam Vital Signs: BMI result Body Mass Index 32.7 Const General: cooperative and no acute distress Orientation/consciousness: patient oriented x3 Neck Neck: Yes normal visual inspection and Yes no lymphadenopathy Resp Effort & Inspection: normal respiratory effort and able to speak in complete sentences Cardio Peripheral pulses: Peripheral pulses 2+ throughout GI Inspection: Yes normal to inspection Palpation (GI): Soft to palpation Skin General skin exam: no rashes or lesions noted Neuro General: patient oriented x3 Extrem Other: Left knee: Normal to inspection. No open wound or abrasions. ROM is 0-95 degrees. Calf supple, nontender. NVI. Assessment & Plan Assessment & Plan (1) Osteoarthritis of left knee: Code(s): M17.12 - Unilateral primary osteoarthritis, left knee Qualifiers: Osteoarthritis type: primary Qualified Code(s): M17.12 - Unilateral primary osteoarthritis, left knee Plan: I discussed in detail the procedure and what to expect pre and post operatively. We discussed the risks, benefits and alternatives to the surgery as well as the rehabilitation course. The risks; which include, but are not limited to infection, bleeding, nerve injury, ongoing pain, swelling, and stiffness, perioperative risk of injury to bones and soft tissues, and blood clots. I?ve answered all questions and with their understanding they have consented to move forward with Left total knee arthroplasty with Dr. Sparks Dilaudid may be more tolerable than oxycodone and oxycontin due to hives and dizziness. Medications: New [Raised toilet seat] As directed 1 ea 0RF M17.12 - Unilateral primary osteoarthritis, left knee Patient Instructions: Scribed for Tigre Carmona PA-C, by David Rogers durable medical equipment technician, on 05/15/2023 at 12:45 PM EST. I, Tigre Carmona PA-C, have personally reviewed and agree with the information entered by the scribe. Coding Level of Care Code Est Pt Level 3 (86053) Diagnoses Primary osteoarthritis of left knee M17.12 Osteoarthritis type: primary
[2023-05-15 12:58] VITALS: BMI 32.7
== END 2023-05-15 13:31 | disposition home or self-care (01) ==
PROVIDERS: PCP Internal Medicine; Visit Provider Physician Assistant
DX: M17.12 Unilateral primary osteoarthritis, left knee (principal)
CPT/HCPCS: 99024

== ENCOUNTER → 2023-05-15 12:40 | Outpatient (BNVA) | payer MEDICARE, OTHER, SELFPAY | PROVIDERS: PCP Internal Medicine; Visit Provider Physician Assistant | DX: M17.12 Unilateral primary osteoarthritis, left knee (principal) | CPT/HCPCS: 99212 ==

== ENCOUNTER 2023-05-20 06:18 | Inpatient (IN) | payer MEDICARE, OTHER, SELFPAY ==
[2023-04-30 13:34] LABS: Prothrombin Time 12.2 SEC (11.1-13.3)
[2023-04-30 13:36] LABS: Hematocrit 43.8 % (37.0-47.0); Hemoglobin 15.1 g/dl (12.0-16.0); Mean Corpuscular HGB Conc 34.5 g/dl (31.0-35.0); Mean Corpuscular Hemoglobin 30.4 pg (27.0-33.0); Mean Corpuscular Volume 88.1 fL (80.0-98.0); Mean Platelet Volume 10.7 fL (9.4-12.3); Platelet Count 206 X10*3/uL (160-400); Red Blood Count 4.97 X10*6/uL (4.20-5.50); Red Cell Distribution Width 12.6 % (11.0-16.0); White Blood Count 5.8 X10*3/uL (4.8-10.8)
[2023-04-30 14:02] LABS: Anion Gap 13 (12-20); Blood Urea Nitrogen 15 mg/dL (9-16); Calcium 10.3 mg/dL (8.4-10.2); Carbon Dioxide 26 mmol/L (22-29); Chloride 106 mmol/L (96-108); Estimated Glomerular Filt Rate > 60; Glucose Random 81 mg/dL (60-115); Potassium 4.1 mmol/L (3.3-5.1); Sodium 141 mmol/L (135-145)
[2023-04-30 14:22] LABS: TSH reflex Free T4 3.06 uIU/mL (0.32-4.0)
[2023-05-13 12:35] VITALS: BP 147/74; PULSE 63; RESP 18; O2SAT 95; BMI 32.7
[2023-05-13 14:42] LABS: MRSA Nasal PCR NEGATIVE (Negative); SA Nasal PCR NEGATIVE (Negative)
--- NOTE | 2023-05-16 09:01 | HO.ANESPROP2 ---
Documented by User: Karla Cazares NP 05/16/23 11:32 HPI - Anesthesia Eval Consult details Narrative: 68yo F for Left Knee Replacement Total PCP cleared Seen by Dr Velarde in PAT 05/13/23. [facility] Active Problems Active Problems: All Active Problems (Updated 05/15/23 @ 13:14 by Tigre Carmona PA-C) Preoperative clearance (Acute) Nephrolithiasis (Acute) Osteoarthritis of left hip (Acute) Osteoarthritis of left knee (Acute) Sprain of left hip (Acute) Left nephrolithiasis (Acute) Annual physical exam (Acute) Chronic hoarseness (Acute) Acute bronchitis (Acute) Dysphagia (Acute) Upper respiratory infection (Acute) Hair loss (Acute) Bilateral lower extremity edema (Acute) Obesity (BMI 30-39.9) (Acute) Elevated LFTs (Acute) Allergic rhinitis (Acute) Impaired fasting glucose (Acute) Nocturnal hypoxemia (Acute) Lumbar degenerative disc disease (Acute) Arthritis of sacroiliac joint (Acute) Degenerative joint disease of left knee (Acute) Asthma (Acute) Aime's thyroiditis (Acute) Hypothyroidism (Acute) Pure hypercholesterolemia (Acute) Benign essential hypertension (Acute) Past Medical History Medical History (Updated 05/20/23 @ 14:52 by Snow Schwartz NP) COVID-19 Basal cell carcinoma GERD (gastroesophageal reflux disease) Sleep apnea History of TIA (transient ischemic attack) Obesity (BMI 30-39.9) Allergic rhinitis Nocturnal hypoxemia Lumbar degenerative disc disease Arthritis of sacroiliac joint Degenerative joint disease of left knee Asthma Aime's thyroiditis Hypothyroidism Pure hypercholesterolemia Benign essential hypertension Family History Family History Father No problems noted. Mother Stroke Hypertension CVD (cardiovascular disease) Diabetes mellitus Cancer Surgical History Surgical History History of cholecystectomy History of excision of lesion History of total abdominal hysterectomy History of removal of cyst History of extraction of renal calculus History of tonsillectomy H/O knee surgery Social History Social History Household Members: Spouse Housing: Apartment Are you a primary manager long term care to a significant other at home: No Do you presently have visiting nurse or other home services: No Alcohol intake: current Alcohol intake frequency: holidays/special occasions only Patient Tobacco Use Status: Never used Tobacco e-Cigarette/Vaping Use: Never Used Second Hand Smoke Exposure: Yes service: No Current occupational status: retired Cognitive needs: No Hearing needs: No Vision needs: Yes (Glasses) Meds Allergies Allergy/AdvReac Type Severity Reaction Status Date / Time cortisone Allergy Mild swelling Verified 05/15/23 12:58 adhesive Allergy Redness of Verified 05/15/23 12:58 Skin apple Allergy Unknown Verified 05/15/23 12:58 carrot Allergy Unknown Verified 05/15/23 12:58 angelo [cherries] Allergy Unknown Verified 05/15/23 12:58 codeine AdvReac Severe mental Verified 05/15/23 12:58 status change, dizziness, fuzzy gabapentin [Neurontin] AdvReac Severe mental Verified 05/15/23 12:58 status changes tramadol AdvReac Severe mental Verified 05/15/23 12:58 status change, dizziness, fuzzy Home Medications Medication Instructions Recorded Confirmed Last Taken Type loratadine 10 mg disintegrating 10 mg PO DAILY 06/16/20 05/15/23 05/19/23 History tablet (Allergy Relief (loratadine)) multivitamin with iron-mineral 2 tab PO DAILY 05/13/23 05/15/23 05/19/23 History omega 2-wiv-lzn-fish oil 1,200 mg 1 cap PO DAILY 05/13/23 05/15/23 05/19/23 History (144 mg-216 mg) capsule (Fish Oil) Exam Exam Date and Time: May 16, 2023 09 Height,Weight and Vital Signs: Height 5 ft 7 in Weight 94.801 kg Last Vital Signs Pulse 63 05/13/23 12:35 Resp 18 05/13/23 12:35 BP 147/74 H 05/13/23 12:35 Pulse Ox 95 05/13/23 12:35 O2 Del Method Room Air 05/13/23 12:35 Pertinent Lab Results Pertinent Lab Results: Laboratory Tests 04/30/23 05/13/23 05/13/23 13:10 12:50 13:20 WBC 5.8 RBC 4.97 Hgb 15.1 Hct 43.8 MCV 88.1 MCH 30.4 MCHC 34.5 RDW 12.6 Plt Count 206 MPV 10.7 Absolute Nucleated RBC 0.000 Nucleated RBC % (auto) 0.0 PT 12.2 INR 1.0 Sodium 141 Potassium 4.1 Chloride 106 Carbon Dioxide 26 Anion Gap 13 BUN 15 Creatinine 0.71 Estim Creat Clear Calc TNP Estimated GFR > 60 Random Glucose 81 Calcium 10.3 H D TSH 3.06 Nasal Screen MRSA (PCR) NEGATIVE Nasal S. aureus Screen NEGATIVE Nasal MRSA/S.aureus Interp SEE NOTE Blood Type O Positive Antibody Screen NEGATIVE Narrative Narrative: EKG 04/2023 Vent. Rate : 070 BPM Atrial Rate : 070 BPM P-R Int : 162 ms QRS Dur : 088 ms QT Int : 392 ms P-R-T Axes : 063 037 061 degrees QTc Int : 423 ms Normal sinus rhythm Normal ECG No previous ECGs available Assessment and Plan Assessment Anesthesia Assessment: Chart Reviewed Documented by User: Tawanna Wheeler MD 05/20/23 07:27 [facility] Past Medical History Medical History (Updated 05/20/23 @ 14:52 by Snow Schwartz NP) COVID-19 Basal cell carcinoma GERD (gastroesophageal reflux disease) Sleep apnea History of TIA (transient ischemic attack) Obesity (BMI 30-39.9) Allergic rhinitis Nocturnal hypoxemia Lumbar degenerative disc disease Arthritis of sacroiliac joint Degenerative joint disease of left knee Asthma Aime's thyroiditis Hypothyroidism Pure hypercholesterolemia Benign essential hypertension Functional capacity: independent ambulation Family History Family History Father No problems noted. Mother Stroke Hypertension CVD (cardiovascular disease) Diabetes mellitus Cancer Family history of problems with anesthesia: No Surgical History Surgical History History of cholecystectomy History of excision of lesion History of total abdominal hysterectomy History of removal of cyst History of extraction of renal calculus History of tonsillectomy H/O knee surgery History of Problems with Anesthesia: No Social History Social History Household Members: Spouse Housing: Apartment Are you a primary manager long term care to a significant other at home: No Do you presently have visiting nurse or other home services: No Alcohol intake: current Alcohol intake frequency: holidays/special occasions only Patient Tobacco Use Status: Never used Tobacco e-Cigarette/Vaping Use: Never Used Second Hand Smoke Exposure: Yes service: No Current occupational status: retired Cognitive needs: No Hearing needs: No Vision needs: Yes (Glasses) Meds Allergies Allergy/AdvReac Type Severity Reaction Status Date / Time cortisone Allergy Mild swelling Verified 05/15/23 12:58 adhesive Allergy Redness of Verified 05/15/23 12:58 Skin apple Allergy Unknown Verified 05/15/23 12:58 carrot Allergy Unknown Verified 05/15/23 12:58 angelo [cherries] Allergy Unknown Verified 05/15/23 12:58 codeine AdvReac Severe mental Verified 05/15/23 12:58 status change, dizziness, fuzzy gabapentin [Neurontin] AdvReac Severe mental Verified 05/15/23 12:58 status changes tramadol AdvReac Severe mental Verified 05/15/23 12:58 status change, dizziness, fuzzy Home Medications Medication Instructions Recorded Confirmed Last Taken Type loratadine 10 mg disintegrating 10 mg PO DAILY 06/16/20 05/15/23 05/19/23 History tablet (Allergy Relief (loratadine)) multivitamin with iron-mineral 2 tab PO DAILY 05/13/23 05/15/23 05/19/23 History omega 4-tdn-fhx-fish oil 1,200 mg 1 cap PO DAILY 05/13/23 05/15/23 05/19/23 History (144 mg-216 mg) capsule (Fish Oil) Exam Airway Mallampati Class: III Loose/Missing/Broken Teeth: Yes Assessment and Plan Final Anesthetic Review Family History of Problems with Anesthesia: No History of Problems with Anesthesia: No Documented by User: Betito Mandujano MD 05/20/23 17:30 [facility] Past Medical History Medical History (Updated 05/20/23 @ 14:52 by Snow Schwartz NP) COVID-19 Basal cell carcinoma GERD (gastroesophageal reflux disease) Sleep apnea History of TIA (transient ischemic attack) Obesity (BMI 30-39.9) Allergic rhinitis Nocturnal hypoxemia Lumbar degenerative disc disease Arthritis of sacroiliac joint Degenerative joint disease of left knee Asthma Aime's thyroiditis Hypothyroidism Pure hypercholesterolemia Benign essential hypertension Family History Family History Father No problems noted. Mother Stroke Hypertension CVD (cardiovascular disease) Diabetes mellitus Cancer Surgical History Surgical History History of cholecystectomy History of excision of lesion History of total abdominal hysterectomy History of removal of cyst History of extraction of renal calculus History of tonsillectomy H/O knee surgery Social History Social History Household Members: Spouse Housing: Apartment Are you a primary manager long term care to a significant other at home: No Do you presently have visiting nurse or other home services: No Alcohol intake: current Alcohol intake frequency: holidays/special occasions only Patient Tobacco Use Status: Never used Tobacco e-Cigarette/Vaping Use: Never Used Second Hand Smoke Exposure: Yes service: No Current occupational status: retired Cognitive needs: No Hearing needs: No Vision needs: Yes (Glasses) Meds Allergies Allergy/AdvReac Type Severity Reaction Status Date / Time cortisone Allergy Mild swelling Verified 05/15/23 12:58 adhesive Allergy Redness of Verified 05/15/23 12:58 Skin apple Allergy Unknown Verified 05/15/23 12:58 carrot Allergy Unknown Verified 05/15/23 12:58 angelo [cherries] Allergy Unknown Verified 05/15/23 12:58 codeine AdvReac Severe mental Verified 05/15/23 12:58 status change, dizziness, fuzzy gabapentin [Neurontin] AdvReac Severe mental Verified 05/15/23 12:58 status changes tramadol AdvReac Severe mental Verified 05/15/23 12:58 status change, dizziness, fuzzy Home Medications Medication Instructions Recorded Confirmed Last Taken Type loratadine 10 mg disintegrating 10 mg PO DAILY 06/16/20 05/15/23 05/19/23 History tablet (Allergy Relief (loratadine)) multivitamin with iron-mineral 2 tab PO DAILY 05/13/23 05/15/23 05/19/23 History omega 8-otl-tqf-fish oil 1,200 mg 1 cap PO DAILY 05/13/23 05/15/23 05/19/23 History (144 mg-216 mg) capsule (Fish Oil) Exam Airway Neck ROM: Full Assessment and Plan Assessment Anesthesia Assessment: Anesthesia Plan Discussed Final Anesthetic Review NPO: Yes ASA Class: III Final Preanesthetic Review: Consent Obtained/Reviewed and Anes Risks/Benef Reviewed Patient Risk: Intermediate Procedure Risk: Intermediate Anesthetic Plan Anesthetic Plan: Spinal, Regional Block and Agree w/ Assess. and Plan Disposition: Standard PACU
[2023-05-20] VITALS (18 sets, daily range): BP systolic 92–158; BP diastolic 45–81; PULSE 50–78; RESP 12–20; TEMP 36.1–36.9; O2SAT 94–100; BMI 32.7
--- NOTE | 2023-05-20 07:52 | MHC.SHP ---
Pre-Procedural Eval Section A Date of Service: 05/20/23 The patient is an INPATIENT: No Changes since office visit: No Cold of Flu in the past 2 weeks, No New Medical Problems, No Changes in Medication and No Patient answered all questions The History & Physical has been completed within 30 days and I have reviewed it.: Yes Section B Chief Complaint: LT TKA Allergies: Allergies Allergy/AdvReac Type Severity Reaction Status Date / Time cortisone Allergy Mild swelling Verified 05/15/23 12:58 adhesive Allergy Redness of Verified 05/15/23 12:58 Skin apple Allergy Unknown Verified 05/15/23 12:58 carrot Allergy Unknown Verified 05/15/23 12:58 angelo [cherries] Allergy Unknown Verified 05/15/23 12:58 codeine AdvReac Severe mental Verified 05/15/23 12:58 status change, dizziness, fuzzy gabapentin [Neurontin] AdvReac Severe mental Verified 05/15/23 12:58 status changes tramadol AdvReac Severe mental Verified 05/15/23 12:58 status change, dizziness, fuzzy Plan I have reviewed the history and physical and performed a pertinent physical examination on my patient. No changes have occurred unless specified. Time Spent With Patient Time: Total time managing care of this patient today ____ minutes.
--- NOTE | 2023-05-20 09:10 | PHA.MEDREC ---
Pharmacy Consult ? Medication Reconciliation Pharmacy has completed the medication reconciliation.
--- NOTE | 2023-05-20 09:45 | PM.OP ---
Brief Operative Note Date of Service: 05/20/23 Pre-op diagnosis: left knee OA Post-op diagnosis: same Procedure: Left TKA Implants: Triathlon cruciate retaining press fit Surgeon: Fabio Sparks MD Anesthesia: GETA and regional Was an Quality Technician Fiberglass used for this Procedure?: Yes Quality Technician Fiberglass: Tigre Carmona Estimated blood loss (mL): 25 Tourniquet time (min): 45 IV fluids (mL): 750 Pathology: other Condition: stable Disposition: PACU
--- NOTE | 2023-05-20 14:24 | HO.PM.IMCN ---
History of Present Illness Data of Consult Service Date: 05/20/23 Requesting physician: Fabio Sparks Primary Care Provider: Eldon Mena MD HPI 60-year-old woman with history of asthma, hypertension, hypothyroidism admitted to Orthopedic surgery and is status post left total knee arthroplasty. Surgery was unremarkable. Patient has been able to eat and drink without any nausea or vomiting. She did have a few episodes of hypotension with systolic blood pressure of 94, likely secondary to anaesthesia. Blood pressures have been stable since along with all other vital signs. Other than a moderate amount of pain patient has no other acute medical complaints at this time. Review of Systems Review of Systems: Denies any recent fever chills or decrease in appetite respiratory denies any shortness of breath, cough or sputum production cardiovascular denies chest pain gastrointestinal denies any dysphagia abdominal pain nausea vomiting or diarrhea genitourinary denies any dysuria frequency or hematuria musculoskeletal see HPI neuropsych denies any weakness or seizures all other systems reviewed are negative [facility] Medical History (Updated 05/23/23 @ 00:03 by Tracy Trujillo) Osteoarthritis of left hip COVID-19 Basal cell carcinoma GERD (gastroesophageal reflux disease) Sleep apnea History of TIA (transient ischemic attack) Obesity (BMI 30-39.9) Allergic rhinitis Nocturnal hypoxemia Lumbar degenerative disc disease Arthritis of sacroiliac joint Degenerative joint disease of left knee Asthma Aime's thyroiditis Hypothyroidism Pure hypercholesterolemia Benign essential hypertension Functional capacity: independent ambulation Family History Father No problems noted. Mother Stroke Hypertension CVD (cardiovascular disease) Diabetes mellitus Cancer Surgical History History of cholecystectomy History of excision of lesion History of total abdominal hysterectomy History of removal of cyst History of extraction of renal calculus History of tonsillectomy H/O knee surgery Social History Household Members: Spouse Housing: Apartment Are you a primary career technical supervisor to a significant other at home: No Do you presently have visiting nurse or other home services: No Alcohol intake: current Alcohol intake frequency: holidays/special occasions only Patient Tobacco Use Status: Never used Tobacco e-Cigarette/Vaping Use: Never Used Second Hand Smoke Exposure: Yes service: No Current occupational status: retired Cognitive needs: No Hearing needs: No Vision needs: Yes (Glasses) Meds Allergies Allergy/AdvReac Type Severity Reaction Status Date / Time cortisone Allergy Mild swelling Verified 06/05/23 13:00 adhesive Allergy Redness of Verified 06/05/23 13:00 Skin apple Allergy Unknown Verified 06/05/23 13:00 carrot Allergy Unknown Verified 06/05/23 13:00 angelo [cherries] Allergy Unknown Verified 06/05/23 13:00 codeine AdvReac Severe mental Verified 06/05/23 13:00 status change, dizziness, fuzzy gabapentin [Neurontin] AdvReac Severe mental Verified 06/05/23 13:00 status changes tramadol AdvReac Severe mental Verified 06/05/23 13:00 status change, dizziness, fuzzy Active Medications: Current Medications Acetaminophen (Acetaminophen 325 Mg Tablet) 650 mg PO Q6H PRN PRN Reason: Pain, Mild (Pain Scale 1-3) Last Admin: 05/20/23 11:39 Dose: 650 mg Albuterol Sulfate (Albuterol Sulfate 90 Mcg 8 Gm Inhaler) 2 puff INHALE Q6H PRN PRN Reason: bronchospasm Aspirin (Aspirin 325 Mg Tablet) 325 mg PO BID VALERIE Celecoxib (Celecoxib 200 Mg Capsule) 200 mg PO BID VALERIE Docusate Sodium (Docusate Sodium 100 Mg Capsule) 100 mg PO BID VALERIE Hydromorphone HCl (Hydromorphone Hcl 2 Mg Tablet) 4 mg PO Q4H PRN PRN Reason: Pain, Moderate(Pain Scale 4-6) Last Admin: 05/20/23 10:44 Dose: 4 mg Hydromorphone HCl (Hydromorphone Hcl 0.5 Mg/0.5 Ml Syringe) 0.25 mg IVPUSH Q4H PRN; Protocol PRN Reason: Pain, Severe (Pain Scale 7-10) Lactated Ringer's (Lr) 1,000 mls @ 100 mls/hr IVCONT .Q10H VALERIE Stop: 05/21/23 09:32 Last Admin: 05/20/23 10:44 Dose: 100 mls/hr Cefazolin Sodium/Dextrose (Ancef) 2 gm in 50 mls @ 100 mls/hr IV POSTOP ONE Stop: 05/20/23 14:29 Last Infusion: 05/20/23 14:13 Dose: Infused Levothyroxine Sodium (Levothyroxine Sodium 100 Mcg Tablet) 100 mcg PO DAILY@0600 [facility] Last Admin: 05/20/23 14:24 Dose: Not Given Loratadine (Loratadine 10 Mg Tablet) 10 mg PO DAILY [facility] Ondansetron HCl (Ondansetron Hcl 4 Mg/2 Ml Vial) 4 mg IVPUSH Q8H PRN PRN Reason: Nausea and Vomiting Last Admin: 05/20/23 14:19 Dose: 4 mg Oxycodone HCl (Oxycodone Hcl Er 10 Mg Tab.Er.12h) 10 mg PO BID [facility] Sodium Chloride (0.9 % Sodium Chloride Flush 3 Ml Syringe) 3 ml IVFLUSH QSHIFT [facility] Home Medications Medication Instructions Recorded Confirmed Last Taken Type loratadine 10 mg disintegrating 10 mg PO DAILY 06/16/20 05/15/23 05/19/23 History tablet (Allergy Relief (loratadine)) multivitamin with iron-mineral 2 tab PO DAILY 05/13/23 05/15/23 05/19/23 History Physical Exam Vital Signs and Narrative: Vital Signs: Last Vital Signs Temp 97.2 F 05/20/23 14:02 Pulse 65 05/20/23 14:02 Resp 20 05/20/23 14:02 BP 122/63 05/20/23 14:02 Pulse Ox 97 05/20/23 14:02 O2 Del Method Room Air 05/20/23 14:02 BMI result Body Mass Index 32.7 Results Labs 05/22/23 06:56 05/22/23 06:56 Imaging Radiologist's Impressions: Impressions Knee X-Ray 05/20/23 10:00 IMPRESSION: Total left knee arthroplasty with prosthetic components in satisfactory alignment. Immediate postoperative changes are noted. Assessment and Plan (1) Osteoarthritis of left hip: Status: Inactive Plan 60-year-old woman admitted by Orthopedic surgery status post left total knee arthroplasty Left total knee arthroplasty Management as per surgical team Pain management Hypertension Some episodes of hypotension post surgery but stable blood pressure now Continue lisinopril Asthma No exacerbation Continue inhalers Hypothyroidism Continue levothyroxine DVT prophylaxis as per admitting team Full code Time Spent With Patient Time: Total time managing care of this patient today ____ minutes.
[2023-05-21 03:50] VITALS: BP 132/69; PULSE 72; RESP 16; TEMP 36.3; O2SAT 94
[2023-05-21 06:47] LABS: Anion Gap 14 (12-20); Blood Urea Nitrogen 10 mg/dL (9-16); Calcium 8.8 mg/dL (8.4-10.2); Carbon Dioxide 22 mmol/L (22-29); Chloride 105 mmol/L (96-108); Estimated Glomerular Filt Rate > 60; Glucose Fasting 154 mg/dL (60-99); Sodium 137 mmol/L (135-145)
--- NOTE | 2023-05-21 07:22 | PM.PNORT ---
Subjective Subjective Date of Service: 05/21/23 Interval history: POD1 s/p LTKA Patient is resting in bed comfortably No overnight events Pain is managed No additional complaints Physical Exam Vital Signs: Vital Signs: Last Vital Signs Temp 97.3 F 05/21/23 03:50 Pulse 72 05/21/23 03:50 Resp 16 05/21/23 03:50 BP 132/69 05/21/23 03:50 Pulse Ox 94 05/21/23 03:50 O2 Del Method Room Air 05/21/23 03:50 BMI result Body Mass Index 32.7 Const: General: cooperative, healthy appearing and no acute distress Resp: Effort & Inspection: normal respiratory effort and able to speak in complete sentences Cardio: Rate: regular rate Peripheral pulses: Peripheral pulses 2+ throughout GI: Palpation (GI): Soft to palpation Skin: Lesions: no lesions Rashes: no rashes Extrem: Other: Left knee dressing is c/d/i. Able to dorsi/plantar flex. Calf is supple and nontender. Sensation intact. Pedal pulse intact. Procedures Date of Service Date of Service: 05/21/23 Progress Note: A&P Assessment and plan (1) Status post total knee replacement, left: Status: Acute Assessment and Plan: Continue pain mgmnt Begin ASA for dvt ppx begin PT for LTKA Dispo planning-Pending PT eval, pain mgmnt Time Spent With Patient Time: Total time managing care of this patient today ____ minutes. Quality Stroke Does the patient have a stroke diagnosis?: No VTE Prior VTE?: No VTE Risk Level:: Medical - moderate - high VTE Device Contraindication: N/A - Device Ordered VTE Drug Contraindication: N/A - Med Ordered
[2023-05-21 07:30] VITALS: BP 151/77; PULSE 71; RESP 16; TEMP 36; O2SAT 96
--- NOTE | 2023-05-21 08:27 | HO.PM.IMPN ---
Subjective Subjective Date of Service: 05/21/23 Review of Systems Follow-up orthopedic consultation Left total knee arthroplasty Mild pain this morning Physical Exam Vital Signs: Vital Signs: Last Vital Signs Temp 96.8 F 05/21/23 07:30 Pulse 71 05/21/23 07:30 Resp 16 05/21/23 07:30 BP 151/77 H 05/21/23 07:30 Pulse Ox 96 05/21/23 07:30 O2 Del Method Room Air 05/21/23 07:30 BMI result Body Mass Index 32.7 Appearing in no acute distress lung sounds are clear to auscultation heart regular rate rhythm, clear S1, S2 positive bowel sounds, abdomen is soft, nontender neuro patient is alert x3, no focal deficits Surgical incision not visualized, surgical dressing intact Objective Data Active Medications Acetaminophen (Acetaminophen 325 Mg Tablet) 650 mg PO Q6H PRN PRN Reason: Pain, Mild (Pain Scale 1-3) Last Admin: 05/20/23 11:39 Dose: 650 mg Documented By: HEENA Albuterol Sulfate (Albuterol Sulfate 90 Mcg 8 Gm Inhaler) 2 puff INHALE Q6H PRN PRN Reason: bronchospasm Aspirin (Aspirin 325 Mg Tablet) 325 mg PO BID [facility] Celecoxib (Celecoxib 200 Mg Capsule) 200 mg PO BID [facility] Last Admin: 05/20/23 21:38 Dose: 200 mg Documented By: OTTONIEL Docusate Sodium (Docusate Sodium 100 Mg Capsule) 100 mg PO BID [facility] Last Admin: 05/20/23 21:38 Dose: 100 mg Documented By: OTTONIEL Hydromorphone HCl (Hydromorphone Hcl 2 Mg Tablet) 4 mg PO Q4H PRN PRN Reason: Pain, Moderate(Pain Scale 4-6) Last Admin: 05/20/23 19:26 Dose: 4 mg Documented By: OTTONIEL Hydromorphone HCl (Hydromorphone Hcl 0.5 Mg/0.5 Ml Syringe) 0.25 mg IVPUSH Q4H PRN; Protocol PRN Reason: Pain, Severe (Pain Scale 7-10) Last Admin: 05/21/23 04:25 Dose: 0.25 mg Documented By: OTTONIEL Lactated Ringer's (Lr) 1,000 mls @ 100 mls/hr IVCONT .Q10H [facility] Stop: 05/21/23 09:32 Last Admin: 05/21/23 07:30 Dose: 100 mls/hr Documented By: VENKAT Levothyroxine Sodium (Levothyroxine Sodium 100 Mcg Tablet) 100 mcg PO DAILY@0600 [facility] Last Admin: 05/21/23 05:44 Dose: 100 mcg Documented By: OTTONIEL Loratadine (Loratadine 10 Mg Tablet) 10 mg PO DAILY [facility] Ondansetron HCl (Ondansetron Hcl 4 Mg/2 Ml Vial) 4 mg IVPUSH Q8H PRN PRN Reason: Nausea and Vomiting Last Admin: 05/20/23 14:19 Dose: 4 mg Documented By: VENKAT Oxycodone HCl (Oxycodone Hcl Er 10 Mg Tab.Er.12h) 10 mg PO BID [facility] Last Admin: 05/20/23 22:02 Dose: Not Given Documented By: OTTONIEL Non-Admin Reason: Patient Refused Sodium Chloride (0.9 % Sodium Chloride Flush 3 Ml Syringe) 3 ml IVFLUSH QSHIFT [facility] Last Admin: 05/21/23 07:14 Dose: Not Given Documented By: VENKAT Non-Admin Reason: IV Running Labs 05/21/23 05:44 05/21/23 05:44 Labs: Laboratory Results - last 24 hr 05/21/23 05:44 MCV 90.6 MCH 30.8 MCHC 34.0 RDW 12.6 Plt Count 201 MPV 11.0 Immature Gran % (Auto) 0.4 Neut % (Auto) 75.4 H Lymph % (Auto) 13.8 L [place] % (Auto) 10.1 Eos % (Auto) 0.0 Baso % (Auto) 0.3 Lymph # (Auto) 1.3 [place] # (Auto) 0.9 Eos # (Auto) 0.0 Baso # (Auto) 0.0 Abs Immat Gran (auto) 0.04 H Absolute Neuts (auto) 7.0 Absolute Nucleated RBC 0.000 Nucleated RBC % (auto) 0.0 Anion Gap 14 Estim Creat Clear Calc 101.0 Estimated GFR > 60 Fasting Glucose 154 H Calcium 8.8 D Assessment and Plan (1) Status post total knee replacement, left: Status: Acute Plan 60-year-old woman admitted by Orthopedic surgery status post left total knee arthroplasty Left total knee arthroplasty Management as per surgical team Pain management Hypertension Some episodes of hypotension post surgery but stable blood pressure now Continue lisinopril as blood pressure allows Asthma No exacerbation Continue inhalers Hypothyroidism Continue levothyroxine DVT prophylaxis as per admitting team Attending Dr. Kuo Full code Medical consultation completed. Will sign off Time Spent With Patient Time: Total time managing care of this patient today ____ minutes. Quality Stroke Does the patient have a stroke diagnosis?: No VTE Prior VTE?: No VTE Risk Level:: Medical - moderate - high VTE Device Contraindication: N/A - Device Ordered VTE Drug Contraindication: N/A - Med Ordered
--- NOTE | 2023-05-21 08:40 | MHC.CM.PN ---
IMM 05/21/23, Pt lives in home with spouse, she has not used home health services in the past. She does have a walker and raised toilet seat at home. Her will transport her home from [facility]. She agrees to referral to [facility] for follow up home care. CM to follow and assist with DC plan.
[2023-05-21 09:44] VITALS: BP 151/77; PULSE 71; O2SAT 96
--- NOTE | 2023-05-21 11:59 | HO.POSTANES ---
Post Anesthesia Evaluation Post Anesthesia Evaluation Date of Service: 05/21/23 Vital Signs: Vital Signs Temp Pulse Resp BP Pulse Ox O2 Del Method 05/21/23 09:44 71 151/77 H 96 05/21/23 07:30 96.8 F 71 16 151/77 H 96 Room Air 05/21/23 03:50 97.3 F 72 16 132/69 94 Room Air Anesthesia: Spinal and Nerve Block Mental Status: Awake Pain Control: Satisfactory Nausea/Vomiting: None Hydration: Adequate Anesthesia-Related Issues: No Anes. Related Issues
[2023-05-21 14:20] VITALS: BP 151/77; PULSE 71; O2SAT 96
[2023-05-21 15:54] VITALS: BP 149/67; PULSE 64; RESP 20; TEMP 36.1; O2SAT 98
[2023-05-21] MEDS: Aspirin 325 MG TABLET PO (19:22)
[2023-05-21] MEDS: Celecoxib 200 MG CAPSULE PO (19:23)
[2023-05-21] MEDS: Docusate Sodium 100 MG CAPSULE PO (19:23)
[2023-05-21 20:00] VITALS: BP 143/63; PULSE 71; RESP 18; TEMP 36.3; O2SAT 96
[2023-05-21] MEDS: HYDROmorphone HCl 0.5 MG/0.5 ML SYRINGE 0.25 MG IVPUSH (20:15)
[2023-05-22 03:18] VITALS: BP 163/72; PULSE 73; RESP 16; TEMP 36.5; O2SAT 96
[2023-05-22] MEDS: HYDROmorphone HCl 0.5 MG/0.5 ML SYRINGE 0.25 MG IVPUSH (04:55)
[2023-05-22] MEDS: Levothyroxine Sodium 100 MCG TABLET PO (05:46)
[2023-05-22 07:04] VITALS: BP 138/63; PULSE 65; RESP 18; TEMP 36.2; O2SAT 95
[2023-05-22 07:30] LABS: MANUAL DIFF FLAG NO
[2023-05-22] MEDS: Celecoxib 200 MG CAPSULE PO (07:31)
[2023-05-22] MEDS: Aspirin 325 MG TABLET PO (07:31)
[2023-05-22] MEDS: Loratadine 10 MG TABLET PO (07:31)
[2023-05-22] MEDS: Docusate Sodium 100 MG CAPSULE PO (07:32)
[2023-05-22 07:39] LABS: Basophils Percent Auto 0.5 % (0-2); Eosinophils Percent Auto 0.3 % (0-4); Hematocrit 36.9 % (37.0-47.0); Hemoglobin 12.7 g/dl (12.0-16.0); Imm Gran Abs Auto 0.04 X10*3/uL (0.00-0.03); Imm Gran Pct Auto 0.5 % (0.0-0.4); Lymphocytes Absolute Auto 1.3 X10*3/uL (1.2-4.9); Mean Corpuscular HGB Conc 34.4 g/dl (31.0-35.0); Mean Corpuscular Hemoglobin 30.9 pg (27.0-33.0); Mean Corpuscular Volume 89.8 fL (80.0-98.0); Mean Platelet Volume 10.8 fL (9.4-12.3); Monocytes Absolute Auto 0.9 X10*3/uL (0.1-1.2); Monocytes Percent Auto 11.5 % (2-11); Neutrophils Absolute Auto 5.5 x10*3/uL (2.0-8.3); Neutrophils Percent Auto 70.2 % (45-73); Platelet Count 188 X10*3/uL (160-400); Red Blood Count 4.11 X10*6/uL (4.20-5.50); White Blood Count 7.9 X10*3/uL (4.8-10.8)
[2023-05-22 07:48] LABS: Anion Gap 13 (12-20); Blood Urea Nitrogen 9 mg/dL (9-16); Calcium 9.3 mg/dL (8.4-10.2); Carbon Dioxide 25 mmol/L (22-29); Chloride 106 mmol/L (96-108); Creatinine Clr Calc Pharmacy 93.6; Estimated Glomerular Filt Rate > 60; Glucose Fasting 140 mg/dL (60-99); Potassium 4.2 mmol/L (3.3-5.1); Sodium 140 mmol/L (135-145)
--- NOTE | 2023-05-22 09:00 | PM.DS ---
DS: Providers Provider Date of Service: 05/22/23 Date of admission: 05/20/23 06:18 Primary care physician: Eldon Mena MD Consults: 05/20/23 13:40 Consult to Hospitalist Routine Comment: Consulting Provider: Hospitalist Reason For Exam: HTN / medical management DS: Diagnosis Discharge Diagnosis (1) Status post total knee replacement, left: Status: Acute DS: Summary Hospital Course Hospital Course: The patient underwent a successful left total knee arthroplasty on 05/20/23, was transferred to PACU and then to the floor to recover. During their stay, their vitals were stable, afebrile at 97.2 . Labs were unremarkable, H/H 12.7/36.9 . POD 1 he was started on Aspirin 325mg tabs po bid for DVT ppx, they also received Physical Therapy services twice a day. Physical therapy should include gait training, ROM to tolerance and quad strength. He is WBAT. Prior to discharge, his dressing was changed, incision clean dry and intact, new Aquacel dressing applied. The Aquacel dressing should remain intact and dry at all times. Any concerns with the dressing, please contact orthopedic office. No showering. The plan is to be discharged home with vna Post op appt: 06/05/23 13:00 [facility] [place] Orthopedic Surgeons Tigre Carmona PA-C Time Spent with Patient Time attestation: Total time managing care of this patient today ____ minutes. Discharge coordination time: Less than 30 minutes Quality: Safe Use of Opioids Does Pt have an Active Cancer Diagnosis on the Problem List?: No Quality: Stroke Does the patient have a stroke diagnosis?: No Physical Exam Vital Signs: Vital Signs: Last Vital Signs Temp 97.2 F 05/22/23 07:04 Pulse 65 05/22/23 07:04 Resp 18 05/22/23 07:04 BP 138/63 05/22/23 07:04 Pulse Ox 95 05/22/23 07:04 O2 Del Method Room Air 05/22/23 07:04 BMI result Body Mass Index 32.7 Const: General: cooperative, healthy appearing and no acute distress Resp: Effort & Inspection: normal respiratory effort and able to speak in complete sentences Cardio: Rate: regular rate Peripheral pulses: Peripheral pulses 2+ throughout GI: Palpation (GI): Soft to palpation Skin: Lesions: no lesions Rashes: no rashes Extrem: Other: Left knee incision c/d/i. Able to dorsi/plantar flex. Calf is supple and nontender. Sensation intact. Pedal pulse intact. DS: Data Data Completed and Pending Pending studies at discharge: Pending at discharge 05/20/23 09:03 Surgical [PTH] Routine Labs on day of discharge: Laboratory Results - last 24 hr 05/22/23 06:56 WBC 7.9 RBC 4.11 L Hgb 12.7 Hct 36.9 L MCV 89.8 MCH 30.9 MCHC 34.4 RDW 13.0 Plt Count 188 MPV 10.8 Immature Gran % (Auto) 0.5 H Neut % (Auto) 70.2 Lymph % (Auto) 17.0 L [place] % (Auto) 11.5 H Eos % (Auto) 0.3 Baso % (Auto) 0.5 Lymph # (Auto) 1.3 [place] # (Auto) 0.9 Eos # (Auto) 0.0 Baso # (Auto) 0.0 Abs Immat Gran (auto) 0.04 H Absolute Neuts (auto) 5.5 Absolute Nucleated RBC 0.000 Nucleated RBC % (auto) 0.0 Sodium 140 Potassium 4.2 Chloride 106 Carbon Dioxide 25 Anion Gap 13 BUN 9 Creatinine 0.68 Estim Creat Clear Calc 93.6 Estimated GFR > 60 Fasting Glucose 140 H Calcium 9.3 Discharge Plan Discharge Anticipated Discharge Date/Time: 05/22/23 08:56 Patient Disposition: Home, Self-Care Discharge Diagnosis: LT TKA Referrals: Tigre Carmona PA-C [Phys[facility] [employer] [facility] [employer]] - 2 Weeks (06/05/23 1:00 [facility] [place] Orthopedic Surgeons Tigre Carmona PA-C) Discharge Medications: New docusate sodium 100 mg Capsule 100 mg PO BID 14 Days Qty: 28 0RF hydromorphone 4 mg tablet 4 mg PO Q4H PRN (Reason: Pain, Moderate(Pain Scale 4-6)) 7 Days Qty: 42 0RF Rx Instructions: Partial Fill upon patient request. celecoxib 200 mg Capsule 200 mg PO BID 30 Days Qty: 60 0RF aspirin 325 mg Tablet 325 mg PO BID 42 Days Qty: 84 0RF acetaminophen 325 mg Tablet 650 mg PO Q6H PRN (Reason: Pain, Mild (Pain Scale 1-3)) 42 Days Qty: 240 0RF Continued lisinopril 10 mg tablet 10 mg PO DAILY Qty: 90 1RF ezetimibe-simvastatin 10-20 mg tablet 1 tab PO DAILY Qty: 90 0RF (DME) walker Misc See Rx Instructions .MEDSUPPLY Qty: 1 0RF Rx Instructions: Folding Front wheeled walker multivitamin with iron-mineral Tablet 2 tab PO DAILY loratadine [Allergy Relief (loratadine)] 10 mg tablet,disintegrating 10 mg PO DAILY albuterol sulfate 90 mcg/actuation HFA aerosol inhaler 2 puff inhalation Q6H PRN (Reason: bronchospasm) Qty: 6.7 1RF levothyroxine 100 mcg tablet 100 mcg PO QAM 90 Days Qty: 90 3RF Rx Instructions: take in the morning on an empty stomach. do not eat or drink anything for 30 minutes afterwards except for water (DME) Raised toilet seat See Rx Instructions .ROUTE .MEDSUPPLY Qty: 1 0RF Rx Instructions: As directed Discontinued omega 2-jow-wpf-fish oil [Fish Oil] 1,200 (144-216) mg Capsule 1 cap PO DAILY Discharge Orders: Discharge Order (Routine); Ordered 05/22/23 Ordered By: Tigre Carmona Diet: Regular diet Activity on Discharge: Use cane or walker Stand Alone Forms: Patient Portal Discharge page Care Plan Goals: Restore function of joint Health Concerns: none Plan of Treatment: Physical Therapy Pain management DVT prophylaxis Assessment: Physical Therapy for Total knee arthroplasty: WBAT, gait training, ROM 0-12, quad strength Limit stair climbing No showering, no tub bath-keep dressing clean, dry and intact No driving x6 weeks Continue Aspirin twice a day x 6 weeks Follow up with [facility] Orthopedics in 2 weeks: 06/05/2313:00 [facility] [place] Orthopedic SurgeonsTigre Carmona PA-C --you will also have your first out patient PT eval on the day of your post op appt-so please plan on being in the office that day for an extended period of time.
--- NOTE | 2023-05-22 09:02 | P.F2F_ITS ---
Service Date Service Date: 05/22/23 Encounter Date of encounter: 05/22/23 Reasons for Services Signs and symptoms assessed: Weakness, poor balance, poor gait mechanics Reason for physical therapy: home safety and mobility, therapeutic exercises, restore joint function, gait/transfer training, ADL training and energy conservation Reason for occupational therapy: home safety and mobility, therapeutic exercises, restore joint function, gait/transfer training, ADL training and energy conservation Homebound: Leaving the home is medically contraindicated at this time without the asist of a device and/or another person due th the listed conditions above and below. Reason homebound: unsteady gait / fall risk, leg weakness, pain with ambulation, poor balance / fall risk and unable to drive Homebound supporting statement: Pt. is considered home bound due to recent surgery. Unable to drive, poor balance, poor gait mechanics. Certification: Based on the above findings, I certify that this patient is confined to the home and needs intermittent senior care care, physical therapy and/or speech therapy, or continues to need occupational therapy. The patient is under my care, and I have initiated the establishment of the plan of care. The patient will be followed by a physician who will periodically review the plan of care. Time Spent With Patient Time: Total time managing care of this patient today ____ minutes.
[2023-05-22 09:08] VITALS: BP 138/63; PULSE 65; O2SAT 95
--- NOTE | 2023-05-22 09:26 | MHC.CM.PN ---
Pt has been medically cleared for DC, her daughter will pick her up, she will have [facility] services.
--- NOTE | 2023-06-04 12:09 | W.PM.OPN ---
Operative Note Operative Note Date of Service: 05/20/23 Narrative: Date of Service: 05/20/23 Pre-op diagnosis: left knee OA Post-op diagnosis: same Procedure: Left TKA Implants: Triathlon cruciate retaining press fit Surgeon: Fabio Sparks MD Anesthesia: GETA and regional Was an Border Patrol Officer used for this Procedure?: Yes [employer] Officer: Tigre Carmona Estimated blood loss (mL): 25 Tourniquet time (min): 45 IV fluids (mL): 750 Pathology: other Condition: stable Disposition: PACU Procedure in detail: The patient was brought to the operating room and prepped and draped in standard sterile fashion. A time-out was called to identify proper site proper procedure proper surgeon and IV antibiotics were administered. 1 g of IV tranexamic acid was administered. I began by making a midline incision to the retinaculum and performed a medial parapatellar arthrotomy. The patella was translated laterally and the knee was flexed up. The medial and anterior compartments were diseased . I performed a small medial peel and resected the infrapatellar fat pad. Luther's line was then used to drill my intramedullary femoral guide and my distal femur cut of 10 mm was made in 5 degrees of valgus while protecting the soft tissues. I then measured a # 4 femur and placed my cutting guide and made my anterior posterior and chamfer cuts protecting the soft tissues at all times. Once I was satisfied with my cuts I turned my attention to the tibia. I removed the meniscus medially and laterally and , using an external cutting guide, in line with the tibial crest and the third ray, I made my distal tibial cut in 3 deg slope of while protecting the PCL the posterior soft tissues at all times. An extension block was used to confirm appropriate amount of bony resection. I then sized a #4 tibia and once I was satisfied that there was complete tibial coverage I placed my trial and with the trial femur in place took the knee through range of motion. I was satisfied with the extension and flexion as well as the stability and balance at 0, 30 and 90 degrees. I then turned my attention to the patella where I removed 1 cm from the undersurface of the patella and then trialed a 29a patellar button. Again the knee was taken through range of motion I was satisfied with the tracking. I then returned to the femur and drilled my femoral lug holes and prepared the tibia. A femoral bone plug was placed and the knee was irrigated copiously. I then press fit the patella, tibia and femur in standard fashion. I trialed different inserts until I selected a #9 insert. The final insert was placed and local TXA was administered. A Werewolf cautery wand was used to maintain hemostasis over the capsule and meniscal beds, the gutters and peripatellar soft tissues. The knee was then closed with a running Quill suture, a 3 0 Vicryl and dulce on the skin. Patient was then placed in sterile dressing and brought to recovery room in stable condition there were no known complications.
== END 2023-05-22 10:36 | disposition home or self-care (01) | DRG 470 ==
LOC: HO.SSSA 06:20 → HO.S3 13:28
PROVIDERS: Nurse Practitioner Family; Admitting Provider Physician Assistant; PCP Internal Medicine; Visit Provider Orthopaedic Surgery
PROC: 0SRD0JA Replacement of Left Knee Joint with Synthetic Substitute, Uncemented, Open Approach (ICD-10-PCS; CPT 27447; principal; 2023-05-20 07:30)
DX: M17.12 Unilateral primary osteoarthritis, left knee (principal); G89.18 Other acute postprocedural pain; E06.3 Autoimmune thyroiditis; I10 Essential (primary) hypertension; J45.909 Unspecified asthma, uncomplicated; Z79.890 Hormone replacement therapy; Z79.899 Other long term (current) drug therapy
CPT/HCPCS: 27447; 36415; 73560; 80048; 84443; 85014; 85018; 85025; 85027; 85610; 86850; 86900; 86901; 87640; 87641; 88305; 88311; 97110; 97116; 97162; C1776; J0690; J1170; J2250; J2405; J2795

== ENCOUNTER → 2023-05-20 06:18 | Outpatient (BNV) | payer MEDICARE, OTHER, SELFPAY | PROVIDERS: Admitting Provider Physician Assistant; PCP Internal Medicine; Visit Provider Orthopaedic Surgery | DX: Z96.652 Presence of left artificial knee joint (principal) | CPT/HCPCS: 27447; 99024; 99212 ==

== ENCOUNTER → 2023-05-20 06:18 | Outpatient (BNV) | payer MEDICARE, OTHER, SELFPAY | PROVIDERS: Admitting Provider Physician Assistant; PCP Internal Medicine; Visit Provider Nurse Practitioner Acute Care | DX: I10 Essential (primary) hypertension (principal); Z96.652 Presence of left artificial knee joint | CPT/HCPCS: 99222; 99232 ==

== ENCOUNTER 2023-06-05 12:50 | Outpatient (AMB) | payer MEDICARE, OTHER, SELFPAY ==
--- NOTE | 2023-06-05 12:55 | A.OFFVIS_ITS ---
Intake Intake Visit Reasons: PO-LT TKA 05/20/23 NE Intake Note: Jolene a 68 year old female presents today for a post operative left TKA, DOS 05/20/23 NE. Patient reports her pain level is 2-3 out of 10. States finds relief with pain medication. She is requesting a refill on docusate sodium. Allergies cortisone Allergy (Mild, Verified 06/05/23 13:00) swelling adhesive Allergy (Verified 06/05/23 13:00) Redness of Skin apple Allergy (Verified 06/05/23 13:00) Unknown carrot Allergy (Verified 06/05/23 13:00) Unknown angelo [cherries] Allergy (Verified 06/05/23 13:00) Unknown codeine Adverse Reaction (Severe, Verified 06/05/23 13:00) mental status change, dizziness, fuzzy gabapentin [Neurontin] Adverse Reaction (Severe, Verified 06/05/23 13:00) mental status changes tramadol Adverse Reaction (Severe, Verified 06/05/23 13:00) mental status change, dizziness, fuzzy HPI PO-LT TKA 05/20/23 NE HPI Details 68-year-old female who returns to the [facility] today for post-op left TKA 05/20/[address] Sparks. She continues to have pain in her left knee and rates the pain as 3 on the scale of 0-10. She finds relief with her pain medication. She is doing well otherwise and has no other concerns. [facility] Medical History (Updated 05/23/23 @ 00:03 by Tracy Trujillo) Osteoarthritis of left hip COVID-19 Basal cell carcinoma GERD (gastroesophageal reflux disease) Sleep apnea History of TIA (transient ischemic attack) Obesity (BMI 30-39.9) Allergic rhinitis Nocturnal hypoxemia Lumbar degenerative disc disease Arthritis of sacroiliac joint Degenerative joint disease of left knee Asthma Aime's thyroiditis Hypothyroidism Pure hypercholesterolemia Benign essential hypertension Surgical History History of cholecystectomy History of excision of lesion History of total abdominal hysterectomy History of removal of cyst History of extraction of renal calculus History of tonsillectomy H/O knee surgery Family History Father No problems noted. Mother Stroke Hypertension CVD (cardiovascular disease) Diabetes mellitus Cancer Social History Household Members: Spouse Housing: Apartment Are you a primary pet caregiver to a significant other at home: No Do you presently have visiting nurse or other home services: No Alcohol intake: current Alcohol intake frequency: holidays/special occasions only Patient Tobacco Use Status: Never used Tobacco e-Cigarette/Vaping Use: Never Used Second Hand Smoke Exposure: Yes service: No Current occupational status: retired Cognitive needs: No Hearing needs: No Vision needs: Yes (Glasses) Review of Systems Const All systems reviewed & are unremarkable except as noted in HPI and below Physical Exam Extrem Other: Left knee: Incision clean, dry and intact. No erythema or joint effusion. ROM is -12 to 75 degrees. Calf supple, nontender. NVI. Assessment & Plan Assessment & Plan (1) Status post total knee replacement, left: Code(s): Z96.652 - Presence of left artificial knee joint Plan Errol removed, steri strips applied. She will begin to transition to Outpatient PT to continue working on Gait training, ROM and quad strength. No driving for another 4 weeks. She will require ppx abx for dental procedures. She will f/u in 4 weeks, sooner if needed. Patient Instructions: Scribed for Tigre Carmona PA-C, by Sal Guzman spanish medical interpreter, on 06/05/2023. I, Tigre Carmona PA-C, have personally reviewed and agree with the information entered by the scribe. Coding Level of Care Code Global (10997) Diagnoses Status post total knee replacement, left Z96.652
== END 2023-06-05 13:46 | disposition home or self-care (01) ==
PROVIDERS: PCP Internal Medicine; Visit Provider Physician Assistant
DX: Z96.652 Presence of left artificial knee joint (principal)
CPT/HCPCS: 99024

== ENCOUNTER → 2023-06-05 12:50 | Outpatient (BNVA) | payer MEDICARE, OTHER, SELFPAY | PROVIDERS: PCP Internal Medicine; Visit Provider Physician Assistant ==

== ENCOUNTER 2023-06-30 09:23 | Outpatient (AMB) | payer MEDICARE, OTHER, SELFPAY ==
--- NOTE | 2023-06-30 09:31 | A.OFFVIS_ITS ---
<Statement entered by Fabio Sparks MD - 07/14/23 12:24> I saw and evaluated this patient. I agree with PA assessment and plan. Intake Intake Visit Reasons: PO-LT TKA 05/20/23 NE Intake Note: Jolene a 68 year old female presents today for a post operative left TKA, DOS 05/20/23 NE. Patient reports she is doing well, mild pain however she finds relief with taking Tylenol. She continues to attend PT. States no concerns today. Allergies cortisone Allergy (Mild, Verified 07/08/23 09:32) swelling adhesive Allergy (Verified 07/08/23 09:32) Redness of Skin apple Allergy (Verified 07/08/23 09:32) Unknown carrot Allergy (Verified 07/08/23 09:32) Unknown angelo [cherries] Allergy (Verified 07/08/23 09:32) Unknown codeine Adverse Reaction (Severe, Verified 07/08/23 09:32) mental status change, dizziness, fuzzy gabapentin [Neurontin] Adverse Reaction (Severe, Verified 07/08/23 09:32) mental status changes tramadol Adverse Reaction (Severe, Verified 07/08/23 09:32) mental status change, dizziness, fuzzy HPI PO-LT TKA 05/20/23 NE HPI Details 68-year-old female who returns to the [facility] today for post-op left TKA, 05/20/[address] Sparks. She states she has mild pain, tightness as well as numbness in her knee. She also c/o pain in her knee at night. She finds relief with Tylenol. She continues to attend physical therapy and is scheduled for her last session on July 18. She is doing well otherwise and has no other concerns today. [facility] Medical History Osteoarthritis of left hip COVID-19 Basal cell carcinoma GERD (gastroesophageal reflux disease) Sleep apnea History of TIA (transient ischemic attack) Obesity (BMI 30-39.9) Allergic rhinitis Nocturnal hypoxemia Lumbar degenerative disc disease Arthritis of sacroiliac joint Degenerative joint disease of left knee Asthma Aime's thyroiditis Hypothyroidism Pure hypercholesterolemia Benign essential hypertension Surgical History History of colonoscopy (~05/18/15) History of cholecystectomy History of excision of lesion History of total abdominal hysterectomy History of removal of cyst History of extraction of renal calculus History of tonsillectomy H/O knee surgery Family History Father No problems noted. Mother Stroke Hypertension CVD (cardiovascular disease) Diabetes mellitus Cancer Social History Household Members: Spouse Housing: Apartment Are you a primary lawn caretaker to a significant other at home: No Do you presently have visiting nurse or other home services: No Alcohol intake: current Alcohol intake frequency: holidays/special occasions only Patient Tobacco Use Status: Never used Tobacco e-Cigarette/Vaping Use: Never Used Second Hand Smoke Exposure: Yes service: No Current occupational status: retired Cognitive needs: No Hearing needs: No Vision needs: Yes (Glasses) Review of Systems Const All systems reviewed & are unremarkable except as noted in HPI and below Physical Exam Extrem Other: Left knee: Incision well healed. She does have moderate swelling in her knee. ROM is 5-85 degrees. She is able to activate SLR but demonstrates poor quad strength. No notable defect. Calf supple, nontender. NVI. Assessment & Plan Assessment & Plan (1) Status post total knee replacement, left: Code(s): Z96.652 - Presence of left artificial knee joint Plan She will continue to work with physical therapy. She needs to be more aggressive with ROM and continue to work on her quad strength. She will resume most activities as tolerated. She did mention upcoming black Friday shopping which I am not too keen about her pursuing or participating in because of her recent TKA and limited function, however she does have a sitting walker that she will use and take frequent breaks. I would like to see her back in 4 weeks for a ROM check, sooner if needed. Medications: Refilled celecoxib 200 mg PO BID 60 caps 3RF 30 days Patient Instructions: Scribed for Tigre Carmona PA-C, by David Rogers medical biller/coder, on 06/30/2023 at 9:30 AM EST. ITigre PA-C, have personally reviewed and agree with the information entered by the scribe. Coding Level of Care Code Global (92884) Diagnoses Status post total knee replacement, left Z96.652
== END 2023-06-30 10:52 | disposition home or self-care (01) ==
PROVIDERS: PCP Internal Medicine; Visit Provider Orthopaedic Surgery
DX: Z96.652 Presence of left artificial knee joint (principal)
CPT/HCPCS: 99024

== ENCOUNTER → 2023-06-30 09:23 | Outpatient (BNVA) | payer MEDICARE, OTHER, SELFPAY | PROVIDERS: PCP Internal Medicine; Visit Provider Orthopaedic Surgery ==

== ENCOUNTER 2023-07-08 09:04 | Outpatient (AMB) | payer MEDICARE, OTHER, SELFPAY ==
[2023-07-08 09:06] VITALS: BP 150/92; PULSE 85; O2SAT 98; BMI 32.6
--- NOTE | 2023-07-08 09:06 | A.OFFPC_ITS ---
Vital Signs 07/08/23 09:06 Height 5 ft 7 in Weight 208 lb 4 oz BMI 32.6 BP 150/92 H Blood Pressure Location Lt brachial Position Sitting Pulse 85 Pulse Source Pulse Oximeter Pulse Oximetry (%) 98 Oxygen Delivery Method Room Air Intake Visit Reasons: PE Automation Technologist Required: No Accompanied by: Self / Same As Patient Allergies cortisone Allergy (Mild, Verified 07/08/23 09:32) swelling adhesive Allergy (Verified 07/08/23 09:32) Redness of Skin apple Allergy (Verified 07/08/23 09:32) Unknown carrot Allergy (Verified 07/08/23 09:32) Unknown angelo [cherries] Allergy (Verified 07/08/23 09:32) Unknown codeine Adverse Reaction (Severe, Verified 07/08/23 09:32) mental status change, dizziness, fuzzy gabapentin [Neurontin] Adverse Reaction (Severe, Verified 07/08/23 09:32) mental status changes tramadol Adverse Reaction (Severe, Verified 07/08/23 09:32) mental status change, dizziness, fuzzy Medication List - Last Reconciled 07/08/23 by Eldon Mena MD acetaminophen 650 mg (2 x 325 mg) PO Q6H PRN 42 days albuterol sulfate 90 mcg/actuation 2 puffs inhalation Q6H PRN aspirin 325 mg PO BID 42 days celecoxib 200 mg PO BID 30 days clotrimazole-betamethasone 1-0.05 % 1 appl topical BID 2 weeks docusate sodium 100 mg PO BID 14 days ezetimibe-simvastatin 10-20 mg 1 tab PO DAILY hydromorphone 2 mg PO Q4H PRN 7 days levothyroxine 100 mcg PO QAM 90 days lisinopril 10 mg PO DAILY loratadine (Allergy Relief (loratadine)) 10 mg PO DAILY multivitamin with iron-mineral 2 tabs PO DAILY [Raised toilet seat As directed] walker Folding Front wheeled walker Tobacco use date assessed: 07/08/23 Fall risk assessment: No Falls in past year Last assessed Fall Risk: 07/08/23 Dental Screening Dental Screen Date: 07/08/23 Did you have a dental visit in the last 12 months?: No Did you have a dental problem in the last 6 months where you did not have access to dental care?: No Was dental information given to patient?: No HPI PE HPI Details Patient comes in today for her annual physical examination She underwent a total left knee arthroplasty sucessfully early last month on 05/20/[address] Sparks She is currently still going to physical therapy and rehab and states that her ROM is not yet at goal and is concerned that she may have to undergo manipulation of the joint to help address the scar tissue build up in a few weeks if her knee does not progress any further with physical therapy Notes that her blood pressure has been higher than usual since her knee surgery last month as she feels stressed about her slower than anticipated recovery States that she feels okay otherwise She denies any headaches or dizziness Denies any chest pains, no SOB No nausea/vomiting, no abdominal pain No change in bowel habits noted She denies any acute urinary symptoms and states that she has not had any bouts of kidney stones for a while now Currently also has a slowly enlarging patch of rash/dry skin over the lateral aspect of her distal left lower leg - states that the lesion is not itchy and is concerned that it may continue to get bigger and delay any potential upcoming surgery/manipulation of her knee She did not get any follow up labs done recently although she did have labs done last month when she had her knee surgery She last had her screening colonoscopy done with Dr. Mullins back in 2014 - (+) hyperplastic polyp and was recommended to get repeat colonoscopy in 10 years She had her annual mammogram last done in April 2023; states that she no longer has to keep up with her annual pap smear and gynecology exam as she's had a total hysterectomy done years ago [facility] Medical History Osteoarthritis of left hip COVID-19 Basal cell carcinoma GERD (gastroesophageal reflux disease) Sleep apnea History of TIA (transient ischemic attack) Obesity (BMI 30-39.9) Allergic rhinitis Nocturnal hypoxemia Lumbar degenerative disc disease Arthritis of sacroiliac joint Degenerative joint disease of left knee Asthma Aime's thyroiditis Hypothyroidism Pure hypercholesterolemia Benign essential hypertension Surgical History History of colonoscopy (~12/26/14) History of cholecystectomy History of excision of lesion History of total abdominal hysterectomy History of removal of cyst History of extraction of renal calculus History of tonsillectomy H/O knee surgery Family History Father No problems noted. Mother Stroke Hypertension CVD (cardiovascular disease) Diabetes mellitus Cancer Household Members: Spouse Housing: Apartment Are you a primary career advisor to a significant other at home: No Do you presently have visiting nurse or other home services: No Alcohol intake: current Alcohol intake frequency: holidays/special occasions only Patient Tobacco Use Status: Never used Tobacco e-Cigarette/Vaping Use: Never Used Second Hand Smoke Exposure: Yes service: No Current occupational status: retired Cognitive needs: No Hearing needs: No Vision needs: Yes (Glasses) Questionnaire PHQ-9 Over the last 2 weeks, how often have you been bothered by any of the following problems? 1. Little interest or pleasure in doing things: not at all 2. Feeling down, depressed, or hopeless: not at all 3. Trouble falling or staying asleep, or sleeping too much: not at all 4. Feeling tired or having little energy: not at all 5. Poor appetite or overeating: not at all 6. Feeling bad about yourself - or that you are a failure or have let yourself or your family down: not at all 7. Trouble concentrating on things, such as reading the newspaper or watching television: not at all 8. Moving or speaking so slowly that other people could have noticed. Or the opposite - being so fidgety or restless that you have been moving around a lot more than usual: not at all 9. Thoughts that you would be better off or of hurting yourself in some way: not at all Total score: 0 Depression Screening Interpretation: Negative Depression Screening Done: Yes 43197 - PHQ-9 Billing: Yes Source: Developed by Drs. Major Huertas, Alayna Jordan, Harry Monge and colleagues, with an educational halina from [employer]. Thrive Questionnaire Date Thrive assessed: 07/08/23 I am a: Patient What is your living situation today?: I have a steady place to live Within the past 12 months, did the food you bought not last and you didn't have the money to get more?: Never true Within the past 12 months, did you worry whether your food would run out before you got money to buy more?: Never true Do you have trouble paying for medicines?: No Do you have trouble getting transportation to medical appointments?: No Do you have trouble paying your heating and electricity bill?: No Do you have trouble taking care of your child, family member or friend?: No Do you have trouble with day-to-day activities such as bathing, preparing meals, shopping, managing finances, etc.?: No Are you currently unemployed and looking for a job?: No Are you interested in more education?: No Please select the resources that you would like help with: None Currently or been in a relationship where the following occur: no concerns reported AUDIT C Alcohol Use Questionnaire (AUDIT-C) 1. How often do you have a drink containing alcohol?: Monthly or less 2. How many drinks containing alcohol do you have on a typical day when you are drinking?: 1 or 2 Total Score: 1 Score Reviewed/Action Taken: Yes ALISA-7 AMB Questionnaire ALISA-7 Date ALISA - 7 assessed: 07/08/23 Feeling nervous, anxious, or on edge: 0 = Not at all Not being able to stop or control worryin = Not at all Worrying too much about different things: 0 = Not at all Trouble relaxin = Not at all Being so restless that it is hard to sit still: 0 = Not at all Becoming easily annoyed or irritable: 0 = Not at all Feeling afraid as if something awful might happen: 0 = Not at all Total ALISA-7 score (0-4 normal; 5-9 mild; 10-14 moderate; 15-21 severe): 0 Source: Developed by Drs. Major Huertas, Alayna Jordan, Harry Monge and colleagues, with an educational halina from [employer]. ALISA-7 Assessment Billing ALISA-7 Assessment Tool: ALISA-7 Assessment 07238 Review of Systems Const Denies chills, Denies fatigue, Denies fever(s), Denies headache(s) and Denies malaise Eyes Denies blurry vision, Denies change in vision, Denies irritation and Denies itchy eyes ENT Denies dysphagia, Denies dizziness, Denies otalgia, Denies headache(s), Denies nasal congestion, Denies neck pain, Denies odynophagia, Denies sinus pain and Denies sore throat Card Denies chest pain, Denies rapid heart rate, Denies irregular heart rhythm, Denies palpitations and Denies dyspnea Resp Denies chest congestion, Denies cough, Denies dyspnea and Denies wheezing GI Denies abdominal pain, Denies bloating, Denies constipation, Denies dysphagia, Denies heartburn, Denies diarrhea, Denies nausea, Denies odynophagia and Denies vomiting Denies hematuria, Denies urinary frequency, Denies dysuria, Denies urinary incontinence and Denies urinary urgency Musc Denies back pain, Reports arthralgias (left knee - s/p knee arthroplasty last month), Reports joint swelling (minimal over the left knee), Denies muscle weakness, Denies neck pain and Reports stiffness (left knee) Skin/Breast Denies breast pain, Denies breast mass, Denies change in pigmentation, Denies lesions, Reports rash (over the lateral aspect of the distal left lower leg - see HPI) and Denies unusual bruising Neuro Denies dizziness, Denies headache(s) and Denies paresthesias Psych Reports anxiety (mostly related to her left knee issues) and Denies depression Endo Denies fatigue and Denies palpitations Ramakrishna/Lymph Denies easy bruising Aller/Immun Denies itchy eyes and Denies wheezing Physical exam (Primary Care) Vital Signs: Last Vital Signs Pulse 85 07/08/23 09:06 BP 150/92 H 07/08/23 09:06 Pulse Ox 98 07/08/23 09:06 Oxygen Delivery Method Room Air 07/08/23 09:06 BMI result Body Mass Index 32.6 Tobacco/Smoking Status: Tobacco use Status Tobacco use date assessed 07/08/23 07/08/23 09:15 Patient Tobacco Use Status Never used Tobacco 07/08/23 09:15 e-Cigarette/Vaping Use Never Used 07/08/23 09:15 PHQ-9: PHQ-9 Score PHQ-9: Total score 0 07/08/23 09:15 Depression Screening Interpretation: Negative Thrive Assessment: Date of Thrive Assessment Date Thrive assessed 07/08/23 07/08/23 09:15 Currently or been in a relationship where the following occur: no concerns reported Const General: no acute distress, alert and awake Orientation/consciousness: patient oriented x3 HENMT Head: Yes normocephalic and Yes atraumatic Ears: external ears normal, TM's normal bilaterally and EAC's normal General nose exam: No nasal discharge present Face and sinus: Yes normal facial exam and Yes sinuses nontender Teeth and gingiva: dentition normal Throat: Yes posterior oropharynx normal and Yes tonsils normal (no TP congestion) Eyes Eyelids: Yes eyelids normal Conjunctivae: conjunctivae normal Pupils: Equal, round and reactive pupils present EOM: EOMs intact bilaterally Neck Neck: Yes no lymphadenopathy and Yes supple Thyroid: Thyroid normal Resp Auscultation: clear to auscultation bilaterally, no rales and no wheezes Cardio Rate: regular rate Rhythm: regular rhythm Heart sounds: no murmurs GI Palpation (GI): Soft to palpation, nontender and No hepatosplenomegaly present Auscultation: normal bowel sounds General: Yes no CVA tenderness Back/Spine/Pelvis Back: no CVA tenderness Thoracic/Lumbar Spine: thoracic and lumbar spine normal to inspection Skin Other: (+) large circular patch of scaling hypopigmented rash over the lateral aspect of the distal left lower leg Neuro General: patient oriented x3, moves all extremities, no focal motor deficits and CN's II-XI intact bilaterally Cranial nerves: Yes Equal, round and reactive pupils present Cognition (Neuro): normal cognition Gait exam (Neuro): Normal gait present Extrem Other: (+) healed scar over the top of the left knee General: Yes no clubbing, cyanosis or edema Left lower extremity: knee Details: tenderness, swelling (minimal) and abnormal ROM (slightly limited due to pain) Results Reviewed Results Reviewed: Laboratory Tests 05/22/23 06:56 WBC 7.9 Hgb 12.7 Hct 36.9 L Plt Count 188 Sodium 140 Potassium 4.2 Creatinine 0.68 Estimated GFR > 60 Fasting Glucose 140 H Calcium 9.3 Assessment and Plan Assessment & Plan (1) Annual physical exam: Code(s): Z00.00 - Encounter for general adult medical examination without abnormal findings Plan: Results of her labs done last month reviewed and discussed with patient but advised that these do not include a fasting lipid profile She is up-to-date with her colon cancer screening (due for repeat in 2024) and annual mammogram (last done in April 2023); no longer has to keep up with annual pap smear and gynecology exam (s/p total hysterectomy) (2) Degenerative joint disease of left knee: Code(s): M17.12 - Unilateral primary osteoarthritis, left knee Qualifiers: Osteoarthritis type: primary Qualified Code(s): M17.12 - Unilateral primary osteoarthritis, left knee Plan: S/P total left knee arthroplasty with Dr. Sparks last month on 05/20/2023 She is currently still going to rehab/physical therapy and presently has some limitation of ROM, likely to scar tissue build up She has been advised that joint manipulation may be required if her knee does not improve any further with physical therapy and she is experiencing some anxiety related to this Follow up with physical therapy and with orthopedics as scheduled (3) Pure hypercholesterolemia: Code(s): E78.00 - Pure hypercholesterolemia, unspecified Plan: Results of her labs done last month reviewed and discussed with patient although these did not include a fasting lipid profile Reinforced low cholesterol diet Continue Ezetimibe-Simvastatin 10-20 mg (Vytorin) QD Will recheck her labs and fasting lipids in 3 months for follow-up (4) Benign essential hypertension: Code(s): I10 - Essential (primary) hypertension Plan: Reinforced low sodium diet - goal is systolic BP of at least 130 mm or less States that her blood pressure has been running higher than usual since her knee surgery last month, in part due to pain and also due to anxiety regarding her slower than expected recovery Continue Lisinopril 10 mg QD for now Patient is instructed to continue monitoring her blood pressure regularly and we will see her back in 3 months to reassess her BP control then (5) Chronic hoarseness: Code(s): R49.0 - Dysphonia Plan: Is most likely due to her unilateral vocal cord paralysis She was referred to ENT for further evaluation and management previously Has been advised that there may not be much in terms of intervention that we can do if she indeed does have vocal cord paralysis, especially since she has no trouble swallowing or breathing (6) Hypothyroidism: Code(s): E03.9 - Hypothyroidism, unspecified Qualifiers: Hypothyroidism type: due to Aime's thyroiditis Qualified Code(s): E03.8 - Other specified hypothyroidism; E06.3 - Autoimmune thyroiditis Plan: TFTs remain normal on her recent labs Continue Levothyroxine 100 mcg QD (7) Aime's thyroiditis: Code(s): E06.3 - Autoimmune thyroiditis Plan: Will continue to monitor her TFTs regularly Follow-up with endocrinology as scheduled (8) Asthma: Code(s): J45.909 - Unspecified asthma, uncomplicated Qualifiers: Asthma severity: moderate Asthma persistence: persistent Asthma complication type: uncomplicated Qualified Code(s): J45.40 - Moderate persistent asthma, uncomplicated Plan: PFTs done back in July 2022 revealed findings consistent with asthma - states that her respiratory symptoms are mostly mild and only bothers her occasionally with increased exertion Continue Albuterol HFA 1 to 2 inhalations PRN for now (9) Impaired fasting glucose: Code(s): R73.01 - Impaired fasting glucose Plan: HgbA1c remains normal at 5.7% on her labs done a few months ago Reinforced low calorie diet /exercise as tolerated (10) Lumbar degenerative disc disease: Code(s): M51.36 - Other intervertebral disc degeneration, lumbar region Plan: Reinforced activity and weight lifting restrictions to minimize her back symptoms (11) Arthritis of sacroiliac joint: Code(s): M47.818 - Spondylosis without myelopathy or radiculopathy, sacral and sacrococcygeal region Plan: Continue Tizanidine 4 mg every 8 hours PRN (12) Nocturnal hypoxemia: Code(s): G47.34 - Idiopathic sleep related nonobstructive alveolar hypoventilation Plan: Patient has not had to use her oxygen when sleeping at night for years now and states that she has not had any problems without it so far She has been advised that this may actually be partially related to her unilateral vocal cord paralysis (13) Allergic rhinitis: Code(s): J30.9 - Allergic rhinitis, unspecified Qualifiers: Allergic rhinitis trigger: unspecified Allergic rhinitis seasonality: unspecified Qualified Code(s): J30.9 - Allergic rhinitis, unspecified Plan: Continue OTC Loratadine 10 mg daily PRN (14) Elevated LFTs: Code(s): R79.89 - Other specified abnormal findings of blood chemistry Plan: Improved; were most likely due to fatty liver changes related to her weight LFTs have remained normal on her recent labs and will continue to monitor her LFTs regularly (15) Tinea corporis: Code(s): B35.4 - Tinea corporis Plan: Discussed that the lesion on her left lower leg currently is likely a fungal rash/lesion Will start her empirically on Lotrisone cream BID x 2 weeks Patient is instructed to call if the lesion does not improve with the Rx; may need referral to dermatology then (16) Obesity (BMI 30-39.9): Code(s): E66.9 - Obesity, unspecified Plan: Reinforced diet/exercise as tolerated /lose weight Plan Follow up in 3 months Orders: Orders Complete Blood Count Auto Diff 3 Months I10 - Essential (primary) hypertension Lipid Panel 3 Months E78.00 - Pure hypercholesterolemia, unspecified UA CC w/rflx Micro + Cult 3 Months R30.0 - Dysuria Comprehensive [place]. Panel Fast 3 Months E78.00 - Pure hypercholesterolemia, unspecified TSH reflex Free T4 3 Months E78.00 - Pure hypercholesterolemia, unspecified Vitamin D 25-OH Total 3 Months E55.9 - Vitamin D deficiency, unspecified Medications: New clotrimazole-betamethasone 1-0.05 % 1 appl topical BID 2 weeks 45 grams 0RF Coding Level of Care Code Est Pt Prev Care >65y(77265) Diagnoses Annual physical exam Z00.00 Primary osteoarthritis of left knee M17.12 Osteoarthritis type: primary Pure hypercholesterolemia E78.00 Benign essential hypertension I10 Chronic hoarseness R49.0 Hypothyroidism due to Aime's thyroiditis E03.8; E06.3 Hypothyroidism type: due to Aime's thyroiditis Aime's thyroiditis E06.3 Moderate persistent asthma without complication J45.40 Asthma severity: moderate Asthma persistence: persistent Asthma complication type: uncomplicated Impaired fasting glucose R73.01 Lumbar degenerative disc disease M51.36 Arthritis of sacroiliac joint M47.818 Nocturnal hypoxemia G47.34 Allergic rhinitis, unspecified seasonality, unspecified trigger J30.9 Allergic rhinitis trigger: unspecified Allergic rhinitis seasonality: unspecified Elevated LFTs R79.89 Tinea corporis B35.4 Obesity (BMI 30-39.9) E66.9 Additional Codes ALISA-7 Assessment Billing - ALISA-7 Assessment Tool: ALISA-7 Assessment [id number] ([id number])
== END 2023-07-08 09:37 | disposition home or self-care (01) ==
PROVIDERS: PCP Internal Medicine; Visit Provider Internal Medicine
DX: Z00.00 Encounter for general adult medical examination without abnormal findings (principal); M17.12 Unilateral primary osteoarthritis, left knee; E78.00 Pure hypercholesterolemia, unspecified; I10 Essential (primary) hypertension; R49.0 Dysphonia; E03.8 Other specified hypothyroidism; E06.3 Autoimmune thyroiditis; J45.40 Moderate persistent asthma, uncomplicated; R73.01 Impaired fasting glucose; M51.36 Other intervertebral disc degeneration, lumbar region; M47.818 Spondylosis without myelopathy or radiculopathy, sacral and sacrococcygeal region; G47.34 Idiopathic sleep related nonobstructive alveolar hypoventilation
CPT/HCPCS: 99397

== ENCOUNTER 2023-07-28 10:47 | Outpatient (AMB) | payer MEDICARE, OTHER, SELFPAY ==
--- NOTE | 2023-07-28 10:59 | A.OFFVIS_ITS ---
Intake Vital Signs 07/28/23 11:02 Height 5 ft 7 in Weight 208 lb BMI 32.6 Intake Visit Reasons: PO-LT TKA 05/20/23 NE Intake Note: Jolene washington 68 year old female presents today for a post operative left TKA, DOS 05/20/23. Patient reports she is doing well, however she has concerns with stiffness in the mornings and after prolong walking. Allergies cortisone Allergy (Mild, Verified 07/28/23 11:03) swelling adhesive Allergy (Verified 07/28/23 11:03) Redness of Skin apple Allergy (Verified 07/28/23 11:03) Unknown carrot Allergy (Verified 07/28/23 11:03) Unknown angelo [cherries] Allergy (Verified 07/28/23 11:03) Unknown codeine Adverse Reaction (Severe, Verified 07/28/23 11:03) mental status change, dizziness, fuzzy gabapentin [Neurontin] Adverse Reaction (Severe, Verified 07/28/23 11:03) mental status changes tramadol Adverse Reaction (Severe, Verified 07/28/23 11:03) mental status change, dizziness, fuzzy HPI PO-LT TKA 05/20/23 NE HPI Details 68-year-old female who returns to the [facility] today for post-op left TKA, 05/20/[address] Sparks. She continues to have stiffness in her knee with prolonged walking and in the mornings but is doing well otherwise. She continues to work on physical therapy with benefits. She is doing well overall and has no other concerns today. [facility] Medical History Osteoarthritis of left hip COVID-19 Basal cell carcinoma GERD (gastroesophageal reflux disease) Sleep apnea History of TIA (transient ischemic attack) Obesity (BMI 30-39.9) Allergic rhinitis Nocturnal hypoxemia Lumbar degenerative disc disease Arthritis of sacroiliac joint Degenerative joint disease of left knee Asthma Aime's thyroiditis Hypothyroidism Pure hypercholesterolemia Benign essential hypertension Surgical History History of colonoscopy (~12/26/14) History of cholecystectomy History of excision of lesion History of total abdominal hysterectomy History of removal of cyst History of extraction of renal calculus History of tonsillectomy H/O knee surgery Family History Father No problems noted. Mother Stroke Hypertension CVD (cardiovascular disease) Diabetes mellitus Cancer Social History Household Members: Spouse Housing: Apartment Are you a primary wild animal caretaker to a significant other at home: No Do you presently have visiting nurse or other home services: No Alcohol intake: current Alcohol intake frequency: holidays/special occasions only Patient Tobacco Use Status: Never used Tobacco e-Cigarette/Vaping Use: Never Used Second Hand Smoke Exposure: Yes service: No Current occupational status: retired Cognitive needs: No Hearing needs: No Vision needs: Yes (Glasses) Physical Exam Vital Signs: BMI result Body Mass Index 32.6 Extrem Other: Left knee: Incision well healed. ROM is 0-110 degrees. She has good activation of quad muscles. Calf supple, nontender. NVI. Assessment & Plan Assessment & Plan (1) Status post total knee replacement, left: Code(s): Z96.652 - Presence of left artificial knee joint Plan She will continue with her physical therapy appointments to improve her quad strength and ROM. She will increase activity as tolerated and see us back in 8 weeks for a routine follow-up with Dr. Sparks, sooner if needed. Patient Instructions: Scribed for Tigre Carmona PA-C, by David Rogers medical insurance collector, on 07/28/2023 at 11:00 AM EST. I, Tigre Carmona PA-C, have personally reviewed and agree with the information entered by the scribe. Coding Level of Care Code Global (15236) Diagnoses Status post total knee replacement, left Z96.652
[2023-07-28 11:02] VITALS: BMI 32.6
== END 2023-07-28 11:26 | disposition home or self-care (01) ==
PROVIDERS: PCP Internal Medicine; Visit Provider Physician Assistant
DX: Z96.652 Presence of left artificial knee joint (principal)
CPT/HCPCS: 99024

== ENCOUNTER → 2023-07-28 10:47 | Outpatient (BNVA) | payer MEDICARE, OTHER, SELFPAY | PROVIDERS: PCP Internal Medicine; Visit Provider Physician Assistant | DX: Z47.1 Aftercare following joint replacement surgery (principal); Z96.652 Presence of left artificial knee joint | CPT/HCPCS: 99212 ==

== ENCOUNTER 2023-08-15 07:00 | Outpatient (RCR) | payer MEDICARE, OTHER, SELFPAY ==
--- NOTE | 2023-06-05 14:10 | MHC.PT.EP ---
[facility] Office [place] Office [place] Office [address] Erna Thacker [address] [phone] F: [phone] F: [phone] F: [phone] F: [phone] Physical Therapy Plan of Care Date of Evaluation: 06/05/23 Date of Surgery: 05/20/23 Diagnosis: S/P Lt TKA Assessment: 68 YO FEMALE REF TO PT S/P Lt TKA ON 05/20/23. SHE RESIDES W HER SPOUSE IN A 2ND FLOOR APT AND IS CURRENTLY AMB W A W/WALKER. SHE HAS A H/O PRIOR Lt KNEE SURGERY AND PO INFECTION IN 2003. OBJECTIVE FINDINGS: PO ROM DEFICITS LEFT KNEE, LEFT PF IRRITABILITY, TIGHT HIP FLEXORS/ CALF MM, (+) STRENGTH DEFICITS, AND FLUCTUATING PAIN IN LEFT KNEE. FUNCTIONALLY, THE Pt TENDS TO LIFT HER Lt LE BUDDYING W Rt LE-> SHE IS LIMITED WITH STANDING SUSIE, DISPLAYS ALTERED GAIT MECHANICS, GUARDED STAIR MGMT, AND RESTRICTED WITH MORE PHYSICALLY DEMANDING ADLs INCORPORATING HER Lt LE. Pt WOULD BENEFIT FROM PT AT THIS TIME TO GUIDE HER IN HER POST-OP COURSE, DEV A PROGR HEP TO IMPROVE Lt KNEE ROM-> TERMINAL EXTENSION, ADDRESS PAIN MGMT, DYNAMIC BALANCE , AND OBTAINING MAXIMAL LEVEL OF FUNCTIONAL INDEPENDENCE. Frequency and Duration: The patient will be seen 2 x WK x 10 WKS Short Term Goals: *THE Pt DEMON IMPROVED LEFT LE PARTICIPATION W TRANSFERS FROM ALL SURFACES *IMPROVE Lt LE PROPRIOCEPTION/ LUMBOPELVIC STABILITY *Pt'S LEFT KNEE PAIN DECR TO 2-10/18 *INCR FLEXIB IN PSOAS/HIP IR/ CALF MM TO IMPROVE EFFICIENCY OF GAIT ON LEVEL AND STAIRS *Pt DEMON Lt KNEE AROM 0* TO 120* Pharmaceutical Worker Goals: *Pt INDEP W PROGRESSIVE HEP AND SELF-SX MGMT TECHN Pt RESUME REG ADLs / ACTIVITY SUSIE , EVIDENT W IMPROVED LEFI SCORE BY 8-10 POINTS Pt INCR LEFT LE STRENGTH BY 1 GRADE *IMPROVED TUG TEST (AT EVAL 18 SEC W W/WAKER ) Treatment Plan: Modalities to reduce pain, spasms and effusion. Manual therapy to restore motion and function. Therapeutic exercise to improve strength and flexibility. Neuromuscular re-education for posture and balance. Therapeutic activities to return to functional activities of daily living. Electronically signed by: ELKE JI PT Please sign and return to therapist. Thank you for your referral.
--- NOTE | 2023-08-15 07:56 | MHC.PT.DC ---
[facility] [place] Office [place] Office [place] Office [address] Erna Thacker [address] [facility] [phone] F: [phone] F: [phone] F: [phone] F: [phone] Physical Therapy Discharge Report Diagnosis: S/P Lt TKA Date of Surgery: 05/20/23 Date of Evaluation: 06/05/23 Date of Discharge: 08/15/23 Treatments to Date: 19 Cancellations to Date: 0 No Shows to Date: 0 Discharge Status: Improved Function Independent with HEP Discharge Summary: Jolene has been an active participant in her therapy in the clinic with inconsistent home program compliance is in agreement with DC at this time as her pain is managed, She has met most of her therapeutic goals, her function is improved, she is I with her HEP and is encouraged to continue on her own. AROM: 5-115. Electronically signed by: Gino Sarah PT. Please sign and return to therapist. Thank you for your referral.
== END 2023-12-30 14:55 | disposition home or self-care (01) ==
LOC: HO.PT 07:00
PROVIDERS: PCP Internal Medicine; Visit Provider Physician Assistant
DX: Z96.652 Presence of left artificial knee joint (principal)
CPT/HCPCS: 97110; 97112; 97116; 97140; 97162; 97530

== ENCOUNTER 2023-09-15 08:16 | Outpatient (AMB) | payer MEDICARE, OTHER, SELFPAY ==
--- NOTE | 2023-09-15 07:54 | MHC.OFFVIS ---
Intake Vital Signs 09/15/23 08:21 Height 5 ft 7 in Weight 208 lb BMI 32.6 Intake Visit Reasons: OV-LT TKA 05/20/23 NE-follow up Intake Note: Jolene a 68 year old female presents today for a post operative left TKA, DOS 05/20/23. Patient reports thato she is doing well , she still struggles with numbness and stiffness. Allergies cortisone Allergy (Mild, Verified 09/15/23 08:20) swelling adhesive Allergy (Verified 09/15/23 08:20) Redness of Skin apple Allergy (Verified 09/15/23 08:20) Unknown carrot Allergy (Verified 09/15/23 08:20) Unknown angelo [cherries] Allergy (Verified 09/15/23 08:20) Unknown codeine Adverse Reaction (Severe, Verified 09/15/23 08:20) mental status change, dizziness, fuzzy gabapentin [Neurontin] Adverse Reaction (Severe, Verified 09/15/23 08:20) mental status changes tramadol Adverse Reaction (Severe, Verified 09/15/23 08:20) mental status change, dizziness, fuzzy HPI OV-LT TKA 05/20/23 NE-follow up HPI Details 4 months s/p left TKA Doing well in regards to pain. Some difficulty with morning stiffness. Completed PT. Wsalked for 90 minutes yesterday. Stil stiff but minimal pain PFSH Medical History Osteoarthritis of left hip COVID-19 Basal cell carcinoma GERD (gastroesophageal reflux disease) Sleep apnea History of TIA (transient ischemic attack) Obesity (BMI 30-39.9) Allergic rhinitis Nocturnal hypoxemia Lumbar degenerative disc disease Arthritis of sacroiliac joint Degenerative joint disease of left knee Asthma Aime's thyroiditis Hypothyroidism Pure hypercholesterolemia Benign essential hypertension Surgical History History of colonoscopy (~12/26/14) History of cholecystectomy History of excision of lesion History of total abdominal hysterectomy History of removal of cyst History of extraction of renal calculus History of tonsillectomy H/O knee surgery Family History Father No problems noted. Mother Stroke Hypertension CVD (cardiovascular disease) Diabetes mellitus Cancer Social History Household Members: Spouse Housing: Apartment Are you a primary health care legal assistant to a significant other at home: No Do you presently have visiting nurse or other home services: No Alcohol intake: current Alcohol intake frequency: holidays/special occasions only Patient Tobacco Use Status: Never used Tobacco e-Cigarette/Vaping Use: Never Used Second Hand Smoke Exposure: Yes service: No Current occupational status: retired Cognitive needs: No Hearing needs: No Vision needs: Yes (Glasses) Review of Systems Const All systems reviewed & are unremarkable except as noted in HPI and below Physical Exam Vital Signs: BMI result Body Mass Index 32.6 Const General: no acute distress, alert and awake Orientation/consciousness: patient oriented x3 HEENT Head: Yes normocephalic and Yes atraumatic Eyes EOM: EOMs intact bilaterally Resp Effort & Inspection: normal respiratory effort and able to speak in complete sentences Cardio Jugular venous distension: no JVD Skin General skin exam: turgor normal Rashes: no rashes Neuro General: patient oriented x3 Extrem Other: 5-125 deg well healed inc Psych Appearance: grossly normal Affect: normal affect Attitude: cooperative Assessment & Plan Assessment & Plan (1) Status post total knee replacement, left: Code(s): Z96.652 - Presence of left artificial knee joint Plan: Doing very well Continue activity as tolerated F/u 9 mo Dental prophylaxis discussed Plan Prepared for Fabio Sparks MD by Lazaro Figueroa, certified medical asst, on 09/15/23 at 8:32 AM, EST. Coding Level of Care Code Est Pt Level 3 (91223) Diagnoses Status post total knee replacement, left Z96.652
[2023-09-15 08:21] VITALS: BMI 32.6
== END 2023-09-15 08:41 | disposition home or self-care (01) ==
PROVIDERS: PCP Internal Medicine; Visit Provider Orthopaedic Surgery
DX: Z47.1 Aftercare following joint replacement surgery (principal); Z96.652 Presence of left artificial knee joint
CPT/HCPCS: 99213

== ENCOUNTER → 2023-09-15 08:16 | Outpatient (BNVA) | payer MEDICARE, OTHER, SELFPAY | PROVIDERS: PCP Internal Medicine; Visit Provider Orthopaedic Surgery | DX: Z47.1 Aftercare following joint replacement surgery (principal); Z96.652 Presence of left artificial knee joint | CPT/HCPCS: 99212 ==

== ENCOUNTER 2023-10-09 06:26 | Outpatient (REF) | payer MEDICARE, OTHER, SELFPAY ==
[2023-10-09 06:53] LABS: MANUAL DIFF FLAG NO
[2023-10-09 07:40] LABS: Basophils Percent Auto 0.7 % (0-2); Eosinophils Absolute Auto 0.1 X10*3/uL (0.0-0.4); Eosinophils Percent Auto 2.4 % (0-4); Hematocrit 42.4 % (37.0-47.0); Hemoglobin 14.6 g/dl (12.0-16.0); Imm Gran Abs Auto 0.01 X10*3/uL (0.00-0.03); Imm Gran Pct Auto 0.2 % (0.0-0.4); Lymphocytes Percent Auto 36.4 % (20-40); Mean Corpuscular HGB Conc 34.4 g/dl (31.0-35.0); Mean Corpuscular Hemoglobin 29.4 pg (27.0-33.0); Mean Corpuscular Volume 85.5 fL (80.0-98.0); Mean Platelet Volume 10.9 fL (9.4-12.3); Monocytes Absolute Auto 0.4 X10*3/uL (0.1-1.2); Neutrophils Absolute Auto 2.9 x10*3/uL (2.0-8.3); Neutrophils Percent Auto 53.3 % (45-73); Platelet Count 195 X10*3/uL (160-400); Red Blood Count 4.96 X10*6/uL (4.20-5.50); Red Cell Distribution Width 13.1 % (11.0-16.0); White Blood Count 5.5 X10*3/uL (4.8-10.8)
[2023-10-09 08:06] LABS: Alanine Aminotransferase 31 U/L (0-31); Alkaline Phosphatase 81 U/L (39-117); Anion Gap 12 (12-20); Aspartate Amino Transferase 27 U/L (5-31); Bilirubin Total 0.6 mg/dL (0.0-1.0); Blood Urea Nitrogen 16 mg/dL (9-16); Calcium 9.4 mg/dL (8.4-10.2); Carbon Dioxide 27 mmol/L (22-29); Chloride 108 mmol/L (96-108); Cholesterol 141 mg/dL (<200); Estimated Glomerular Filt Rate > 60; Glucose Fasting 111 mg/dL (60-99); HDL Cholesterol 50 mg/dL (>40); LDL Cholesterol Calculated 76 mg/dL (<100); Potassium 4.2 mmol/L (3.3-5.1); Sodium 143 mmol/L (135-145); Triglycerides 77 mg/dL (<150)
[2023-10-09 08:07] LABS: Appearance Urine Cloudy; Color Urine Dark Yellow; Glucose Urine UA Negative (Negative); Leukocyte Esterase Urine Moderate (2+) (Negative); Nitrite Urine Negative (Negative); UMIC TRIGGER UACC YES; Urine Blood Negative (Negative); Urine Ketones Negative (Negative); Urine Protein Negative (Neg-Trace)
[2023-10-09 08:21] LABS: Bacteria Urine Trace (None Seen); Hyaline Casts Urine 0-2 /LPF (0-2); RBC Urine 0-2 /HPF (0-2); UACC Culture Trigger YES; WBC Urine 21-50 /HPF (0-5)
[2023-10-09 08:26] LABS: Free T4 (Free Thyroxine) 0.83 ng/dL (0.71-1.85); TSH reflex Free T4 6.87 uIU/mL (0.32-4.0); Thyroid Stimulating Hormone 6.87 uIU/mL (0.32-4.0); Vitamin D 25-OH Total 39.7 ng/mL (>30)
== END 2023-10-09 06:27 | disposition home or self-care (01) ==
LOC: HO.LAB 06:26
PROVIDERS: PCP Internal Medicine; Visit Provider Internal Medicine
DX: I10 Essential (primary) hypertension (principal); E03.9 Hypothyroidism, unspecified; E55.9 Vitamin D deficiency, unspecified; E78.00 Pure hypercholesterolemia, unspecified; R30.0 Dysuria
CPT/HCPCS: 36415; 80053; 80061; 81001; 81003; 82306; 84439; 84443; 85025; 87086

== ENCOUNTER 2023-10-10 08:43 | Outpatient (AMB) | payer MEDICARE, OTHER, SELFPAY ==
[2023-10-10 08:48] VITALS: BP 128/80; PULSE 66; O2SAT 96; BMI 32.6
--- NOTE | 2023-10-10 08:48 | MHC.PC.OV ---
Vital Signs 10/10/23 08:48 Height 5 ft 7 in Weight 208 lb BMI 32.6 BP 128/80 Blood Pressure Location Lt brachial Position Sitting Pulse 66 Pulse Source Pulse Oximeter Pulse Oximetry (%) 96 Oxygen Delivery Method Room Air Intake Visit Reasons: HTN, hyperlipidemia, OA Greenhouse Staff Required: No Accompanied by: Self / Same As Patient Allergies cortisone Allergy (Mild, Verified 10/10/23 09:44) swelling adhesive Allergy (Verified 10/10/23 09:44) Redness of Skin apple Allergy (Verified 10/10/23 09:44) Unknown carrot Allergy (Verified 10/10/23 09:44) Unknown angelo [cherries] Allergy (Verified 10/10/23 09:44) Unknown codeine Adverse Reaction (Severe, Verified 10/10/23 09:44) mental status change, dizziness, fuzzy gabapentin [Neurontin] Adverse Reaction (Severe, Verified 10/10/23 09:44) mental status changes tramadol Adverse Reaction (Severe, Verified 10/10/23 09:44) mental status change, dizziness, fuzzy Medication List - Last Reconciled 10/10/23 by Eldon Mena MD acetaminophen 650 mg (2 x 325 mg) PO Q6H PRN 42 days albuterol sulfate 90 mcg/actuation 2 puffs inhalation Q6H PRN aspirin 325 mg PO BID 42 days celecoxib 200 mg PO BID 30 days clotrimazole-betamethasone 1-0.05 % 1 appl topical BID 2 weeks docusate sodium 100 mg PO BID 14 days ezetimibe-simvastatin 10-20 mg 1 tab PO DAILY hydromorphone 2 mg PO Q4H PRN 7 days levothyroxine 100 mcg PO QAM 90 days lisinopril 10 mg PO DAILY loratadine (Allergy Relief (loratadine)) 10 mg PO DAILY multivitamin with iron-mineral 2 tabs PO DAILY [Raised toilet seat As directed] walker Folding Front wheeled walker Tobacco use date assessed: 10/10/23 Fall risk assessment: No Falls in past year Last assessed Fall Risk: 10/10/23 Dental Screening Dental Screen Date: 10/10/23 Did you have a dental visit in the last 12 months?: Yes Did you have a dental problem in the last 6 months where you did not have access to dental care?: No Was dental information given to patient?: Patient has dentist HPI HTN, hyperlipidemia, OA HPI Details Patient comes in today for her follow up visit States that she feels okay She denies any headaches or dizziness Denies any chest pains, no SOB No nausea/vomiting, no abdominal pain No change in bowel habits noted States that her left knee feels okay and has not been bothering her too much lately - she is now back to doing most ADLs with little issues Needs her Levothyroxine Rx refilled Had her follow up labs done yesterday - to discuss her results [facility] Medical History Osteoarthritis of left hip COVID-19 Basal cell carcinoma GERD (gastroesophageal reflux disease) Sleep apnea History of TIA (transient ischemic attack) Obesity (BMI 30-39.9) Allergic rhinitis Nocturnal hypoxemia Lumbar degenerative disc disease Arthritis of sacroiliac joint Degenerative joint disease of left knee Asthma Aime's thyroiditis Hypothyroidism Pure hypercholesterolemia Benign essential hypertension Surgical History (Updated 10/10/23 @ 09:54 by Eldon Mena MD) History of arthroplasty of left knee (~05/20/23) History of colonoscopy (~12/26/14) History of cholecystectomy History of excision of lesion History of total abdominal hysterectomy History of removal of cyst History of extraction of renal calculus History of tonsillectomy H/O knee surgery Family History Father No problems noted. Mother Stroke Hypertension CVD (cardiovascular disease) Diabetes mellitus Cancer Social History Household Members: Spouse Housing: Apartment Are you a primary primary care physician to a significant other at home: No Do you presently have visiting nurse or other home services: No Alcohol intake: current Alcohol intake frequency: holidays/special occasions only Patient Tobacco Use Status: Never used Tobacco e-Cigarette/Vaping Use: Never Used Second Hand Smoke Exposure: Yes service: No Current occupational status: retired Cognitive needs: No Hearing needs: No Vision needs: Yes (Glasses) Questionnaire PHQ-9 Over the last 2 weeks, how often have you been bothered by any of the following problems? 1. Little interest or pleasure in doing things: not at all 2. Feeling down, depressed, or hopeless: not at all 3. Trouble falling or staying asleep, or sleeping too much: not at all 4. Feeling tired or having little energy: not at all 5. Poor appetite or overeating: not at all 6. Feeling bad about yourself - or that you are a failure or have let yourself or your family down: not at all 7. Trouble concentrating on things, such as reading the newspaper or watching television: not at all 8. Moving or speaking so slowly that other people could have noticed. Or the opposite - being so fidgety or restless that you have been moving around a lot more than usual: not at all 9. Thoughts that you would be better off or of hurting yourself in some way: not at all Total score: 0 Depression Screening Interpretation: Negative Depression Screening Done: Yes 53441 - PHQ-9 Billing: Yes Source: Developed by Drs. Major Huertas, Alayna Jordan, Harry Monge and colleagues, with an educational halina from [employer]. Thrive Questionnaire Date Thrive assessed: 10/10/23 I am a: Patient What is your living situation today?: I have a steady place to live Within the past 12 months, did the food you bought not last and you didn't have the money to get more?: Never true Within the past 12 months, did you worry whether your food would run out before you got money to buy more?: Never true Do you have trouble paying for medicines?: No Do you have trouble getting transportation to medical appointments?: No Do you have trouble paying your heating and electricity bill?: No Do you have trouble taking care of your child, family member or friend?: No Do you have trouble with day-to-day activities such as bathing, preparing meals, shopping, managing finances, etc.?: No Are you currently unemployed and looking for a job?: No Are you interested in more education?: No Please select the resources that you would like help with: None Currently or been in a relationship where the following occur: no concerns reported THRIVE Score: 0 AUDIT C Alcohol Use Questionnaire (AUDIT-C) 1. How often do you have a drink containing alcohol?: Monthly or less 2. How many drinks containing alcohol do you have on a typical day when you are drinking?: 1 or 2 Total Score: 1 Score Reviewed/Action Taken: Yes ALISA-7 AMB Questionnaire ALISA-7 Date ALISA - 7 assessed: 10/10/23 Feeling nervous, anxious, or on edge: 0 = Not at all Not being able to stop or control worryin = Not at all Worrying too much about different things: 0 = Not at all Trouble relaxin = Not at all Being so restless that it is hard to sit still: 0 = Not at all Becoming easily annoyed or irritable: 0 = Not at all Feeling afraid as if something awful might happen: 0 = Not at all Total ALISA-7 score (0-4 normal; 5-9 mild; 10-14 moderate; 15-21 severe): 0 Source: Developed by Drs. Major Huertas, Alayna Jordan, Harry Monge and colleagues, with an educational halina from [employer]. ALISA-7 Assessment Billing ALISA-7 Assessment Tool: ALISA-7 Assessment 25094 Review of Systems Const Denies chills, Denies fatigue, Denies fever(s) and Denies headache(s) ENT Denies dysphagia, Denies dizziness, Denies otalgia, Denies headache(s), Reports hoarseness (chronic), Denies neck pain, Denies odynophagia and Denies sore throat Card Denies chest pain, Denies rapid heart rate, Denies irregular heart rhythm, Denies palpitations and Denies dyspnea Resp Denies chest congestion, Denies cough, Denies dyspnea and Denies wheezing GI Denies abdominal pain, Denies constipation, Denies dysphagia, Denies heartburn, Denies diarrhea, Denies nausea, Denies odynophagia and Denies vomiting Denies hematuria, Denies urinary frequency, Denies dysuria and Denies urinary incontinence Musc Denies back pain, Denies arthralgias, Denies joint swelling, Denies neck pain and Reports stiffness (left knee - at times) Skin/Breast Denies rash Neuro Denies dizziness, Denies headache(s) and Denies paresthesias Psych Denies anxiety Endo Denies fatigue and Denies palpitations Ramakrishna/Lymph Denies easy bruising Aller/Immun Denies wheezing Physical exam (Primary Care) Vital Signs: Last Vital Signs Pulse 66 10/10/23 08:48 BP 128/80 10/10/23 08:48 Pulse Ox 96 10/10/23 08:48 Oxygen Delivery Method Room Air 10/10/23 08:48 BMI result Body Mass Index 32.6 Tobacco/Smoking Status: Tobacco use Status Tobacco use date assessed 10/10/23 10/10/23 08:50 Patient Tobacco Use Status Never used Tobacco 10/10/23 08:50 e-Cigarette/Vaping Use Never Used 10/10/23 08:50 PHQ-9: PHQ-9 Score PHQ-9: Total score 0 10/10/23 09:04 Depression Screening Interpretation: Negative Thrive Assessment: Date of Thrive Assessment Date Thrive assessed 10/10/23 10/10/23 08:50 Currently or been in a relationship where the following occur: no concerns reported Const General: no acute distress and alert HENMT Ears: TM's normal bilaterally and EAC's normal Throat: Yes posterior oropharynx normal and Yes tonsils normal (no TP congestion) Neck Neck: Yes no lymphadenopathy and Yes supple Thyroid: Thyroid normal Resp Auscultation: clear to auscultation bilaterally, no rales and no wheezes Cardio Rate: regular rate Rhythm: regular rhythm Heart sounds: no murmurs GI Palpation (GI): Soft to palpation and nontender Auscultation: normal bowel sounds General: Yes no CVA tenderness Back/Spine/Pelvis Back: no CVA tenderness Thoracic/Lumbar Spine: thoracic and lumbar spine normal to inspection Extrem Other: (+) healed scar over the top of the left knee General: Yes no clubbing, cyanosis or edema Results Reviewed Results Reviewed: Laboratory Tests 10/09/23 10/09/23 06:51 06:52 WBC 5.5 Hgb 14.6 Hct 42.4 Plt Count 195 Sodium 143 Potassium 4.2 Creatinine 0.78 Estimated GFR > 60 Fasting Glucose 111 H Calcium 9.4 AST 27 ALT 31 Triglycerides 77 Cholesterol 141 LDL Cholesterol, Calc 76 HDL Cholesterol 50 25-OH Vitamin D Total 39.7 TSH 6.87 H Free T4 0.83 Ur Specific [place] 1.020 Urine Protein Negative Urine Glucose (UA) Negative Urine Blood Negative Urine Nitrite Negative Ur Leukocyte Esterase Moderate (2+) H Assessment and Plan Assessment & Plan (1) Degenerative joint disease of left knee: Code(s): M17.12 - Unilateral primary osteoarthritis, left knee Qualifiers: Osteoarthritis type: primary Qualified Code(s): M17.12 - Unilateral primary osteoarthritis, left knee Plan: S/P total left knee arthroplasty with Dr. Sparks back on 05/20/2023 She is currently doing well and is back to normal activities with no significant restrictions; she completed physical therapy/rehab a couple of months ago Follow up with orthopedics as scheduled (2) Pure hypercholesterolemia: Code(s): E78.00 - Pure hypercholesterolemia, unspecified Plan: Results of her labs done yesterday reviewed and discussed with patient Reinforced low cholesterol diet Continue Ezetimibe-Simvastatin 10-20 mg (Vytorin) QD Will recheck her labs and fasting lipids in 4 months for follow-up (3) Benign essential hypertension: Code(s): I10 - Essential (primary) hypertension Plan: Reinforced low sodium diet - goal is systolic BP of at least 130 mm or less Her BP today is much better than previous Continue Lisinopril 10 mg QD Patient is reminded to continue monitoring her blood pressure regularly (4) Chronic hoarseness: Code(s): R49.0 - Dysphonia Plan: Is most likely due to her unilateral vocal cord paralysis She was referred to ENT for further evaluation and management previously Has been advised that there may not be much in terms of intervention that we can do if she indeed does have vocal cord paralysis, especially since she has no trouble swallowing or breathing (5) Hypothyroidism: Code(s): E03.9 - Hypothyroidism, unspecified Qualifiers: Hypothyroidism type: due to Aime's thyroiditis Qualified Code(s): E03.8 - Other specified hypothyroidism; E06.3 - Autoimmune thyroiditis Plan: She is advised that her TSH is now elevated and her free T4 level appears to have declined slightly Will INCREASE her Levothyroxine now to 112 mcg QD Will recheck her TFTs in 4 months for follow up (6) Aime's thyroiditis: Code(s): E06.3 - Autoimmune thyroiditis Plan: Will continue to monitor her TFTs regularly Follow-up with endocrinology as scheduled (7) Asthma: Code(s): J45.909 - Unspecified asthma, uncomplicated Qualifiers: Asthma severity: moderate Asthma persistence: persistent Asthma complication type: uncomplicated Qualified Code(s): J45.40 - Moderate persistent asthma, uncomplicated Plan: PFTs done back in July 2022 revealed findings consistent with asthma - states that her respiratory symptoms have been mostly mild and only bother her occasionally and mostly only with increased exertion Continue Albuterol HFA 1 to 2 inhalations PRN (8) Impaired fasting glucose: Code(s): R73.01 - Impaired fasting glucose Plan: HgbA1c remains normal at 5.7% on her labs done last year Reinforced low calorie diet /exercise as tolerated Will recheck her FBS and HgbA1c in 4 months for follow up (9) Lumbar degenerative disc disease: Code(s): M51.36 - Other intervertebral disc degeneration, lumbar region Plan: Reinforced activity and weight lifting restrictions to minimize her back symptoms (10) Arthritis of sacroiliac joint: Code(s): M47.818 - Spondylosis without myelopathy or radiculopathy, sacral and sacrococcygeal region Plan: Continue Tizanidine 4 mg every 8 hours PRN (11) Nocturnal hypoxemia: Code(s): G47.34 - Idiopathic sleep related nonobstructive alveolar hypoventilation Plan: Patient has not had to use her oxygen when sleeping at night for years now and states that she has not had any problems without it so far She has been advised that this may actually be partially related to her unilateral vocal cord paralysis (12) Allergic rhinitis: Code(s): J30.9 - Allergic rhinitis, unspecified Qualifiers: Allergic rhinitis trigger: unspecified Allergic rhinitis seasonality: unspecified Qualified Code(s): J30.9 - Allergic rhinitis, unspecified Plan: Continue OTC Loratadine 10 mg daily PRN (13) Elevated LFTs: Code(s): R79.89 - Other specified abnormal findings of blood chemistry Plan: Improved; were most likely due to fatty liver changes related to her weight LFTs have remained normal on her recent labs and will continue to monitor her LFTs regularly (14) Obesity (BMI 30-39.9): Code(s): E66.9 - Obesity, unspecified Plan: Reinforced diet/exercise as tolerated /lose weight Plan Follow up in 4 months Orders: Orders Lipid Panel 4 Months E78.00 - Pure hypercholesterolemia, unspecified Free T4 (Free Thyroxine) 4 Months E03.9 - Hypothyroidism, unspecified Complete Blood Count Auto Diff 4 Months D64.9 - Anemia, unspecified Comprehensive [place]. Panel Fast 4 Months E78.00 - Pure hypercholesterolemia, unspecified Thyroid Stimulating Hormone 4 Months E03.9 - Hypothyroidism, unspecified Hemoglobin A1c 4 Months R73.01 - Impaired fasting glucose UA CC w/rflx Micro + Cult 4 Months R30.0 - Dysuria Vitamin D 25-OH Total 4 Months E55.9 - Vitamin D deficiency, unspecified Medications: Changed From levothyroxine take in the morning on an empty stomach. do not eat or drink anything for 30 minutes afterwards except for water 100 mcg PO QAM 90 days 90 tabs 3RF E03.8 - Other specified hypothyroidism, E06.3 - Autoimmune thyroiditis To levothyroxine take in the morning on an empty stomach. do not eat or drink anything for 30 minutes afterwards except for water 112 mcg PO QAM 90 tabs 3RF 90 days E03.8 - Other specified hypothyroidism, E06.3 - Autoimmune thyroiditis Coding Level of Care Code Est Pt Level 4 (36913) Diagnoses Primary osteoarthritis of left knee M17.12 Osteoarthritis type: primary Pure hypercholesterolemia E78.00 Benign essential hypertension I10 Chronic hoarseness R49.0 Hypothyroidism due to Aime's thyroiditis E03.8; E06.3 Hypothyroidism type: due to Aime's thyroiditis Aime's thyroiditis E06.3 Moderate persistent asthma without complication J45.40 Asthma severity: moderate Asthma persistence: persistent Asthma complication type: uncomplicated Impaired fasting glucose R73.01 Lumbar degenerative disc disease M51.36 Arthritis of sacroiliac joint M47.818 Nocturnal hypoxemia G47.34 Allergic rhinitis, unspecified seasonality, unspecified trigger J30.9 Allergic rhinitis trigger: unspecified Allergic rhinitis seasonality: unspecified Elevated LFTs R79.89 Obesity (BMI 30-39.9) E66.9 Additional Codes ALISA-7 Assessment Billing - ALISA-7 Assessment Tool: ALISA-7 Assessment [id number] ([id number])
== END 2023-10-10 09:55 | disposition home or self-care (01) ==
PROVIDERS: PCP Internal Medicine; Visit Provider Internal Medicine
DX: E78.00 Pure hypercholesterolemia, unspecified (principal); I10 Essential (primary) hypertension; R49.0 Dysphonia; M17.12 Unilateral primary osteoarthritis, left knee; E06.3 Autoimmune thyroiditis; J45.40 Moderate persistent asthma, uncomplicated; R73.01 Impaired fasting glucose; M51.36 Other intervertebral disc degeneration, lumbar region; M47.818 Spondylosis without myelopathy or radiculopathy, sacral and sacrococcygeal region; G47.34 Idiopathic sleep related nonobstructive alveolar hypoventilation; J30.9 Allergic rhinitis, unspecified; R79.89 Other specified abnormal findings of blood chemistry
CPT/HCPCS: 99214

== ENCOUNTER 2024-02-17 06:45 | Outpatient (REF) | payer MEDICARE, OTHER, SELFPAY ==
[2024-02-17 07:09] LABS: MANUAL DIFF FLAG NO
[2024-02-17 07:37] LABS: Basophils Absolute Auto 0.1 X10*3/uL (0.0-0.2); Eosinophils Absolute Auto 0.2 X10*3/uL (0.0-0.4); Hemoglobin 15.5 g/dl (12.0-16.0); Imm Gran Abs Auto 0.02 X10*3/uL (0.00-0.03); Imm Gran Pct Auto 0.4 % (0.0-0.4); Lymphocytes Absolute Auto 1.9 X10*3/uL (1.2-4.9); Lymphocytes Percent Auto 38.5 % (20-40); Mean Corpuscular HGB Conc 35.2 g/dl (31.0-35.0); Mean Corpuscular Hemoglobin 31.3 pg (27.0-33.0); Mean Corpuscular Volume 88.7 fL (80.0-98.0); Monocytes Absolute Auto 0.4 X10*3/uL (0.1-1.2); Monocytes Percent Auto 7.2 % (2-11); Neutrophils Absolute Auto 2.5 x10*3/uL (2.0-8.3); Neutrophils Percent Auto 49.9 % (45-73); Platelet Count 192 X10*3/uL (160-400); Red Blood Count 4.96 X10*6/uL (4.20-5.50); Red Cell Distribution Width 12.8 % (11.0-16.0)
[2024-02-17 07:47] LABS: Appearance Urine Clear; Color Urine Yellow; Glucose Urine UA Negative (Negative); Leukocyte Esterase Urine Large (3+) (Negative); Nitrite Urine Negative (Negative); PH 5.5 (5.0-9.0); UMIC TRIGGER UACC YES; Urine Blood Trace (Negative); Urine Ketones Negative (Negative); Urine Protein Negative (Neg-Trace)
[2024-02-17 07:51] LABS: Bacteria Urine None Seen (None Seen); Hyaline Casts Urine 0-2 /LPF (0-2); RBC Urine 0-2 /HPF (0-2); Squamous Epithelial Cell Urine 0-2 /HPF (0-2); UACC Culture Trigger YES; WBC Urine 21-50 /HPF (0-5)
[2024-02-17 08:03] LABS: Estimated Average Glucose 123 mg/dL; Hemoglobin A1c % 5.9 % (<6.0)
[2024-02-17 08:18] LABS: Alanine Aminotransferase 32 U/L (0-31); Albumin Level 4.1 g/dL (3.5-5.0); Alkaline Phosphatase 87 U/L (39-117); Anion Gap 14 (12-20); Aspartate Amino Transferase 27 U/L (5-31); Bilirubin Total 0.6 mg/dL (0.0-1.0); Blood Urea Nitrogen 14 mg/dL (9-16); Calcium 9.7 mg/dL (8.4-10.2); Carbon Dioxide 25 mmol/L (22-29); Chloride 108 mmol/L (96-108); Cholesterol 144 mg/dL (<200); Estimated Glomerular Filt Rate > 60; Glucose Fasting 118 mg/dL (60-99); HDL Cholesterol 47 mg/dL (>40); LDL Cholesterol Calculated 77 mg/dL (<100); Potassium 4.6 mmol/L (3.3-5.1); Sodium 142 mmol/L (135-145); Triglycerides 103 mg/dL (<150)
[2024-02-17 08:34] LABS: Free T4 (Free Thyroxine) 0.81 ng/dL (0.71-1.85); Thyroid Stimulating Hormone 5.05 uIU/mL (0.32-4.0); Vitamin D 25-OH Total 41.4 ng/mL (>30)
== END 2024-02-17 06:46 | disposition home or self-care (01) ==
LOC: HO.LAB 06:45
PROVIDERS: PCP Internal Medicine; Visit Provider Internal Medicine
DX: D64.9 Anemia, unspecified (principal); E78.00 Pure hypercholesterolemia, unspecified; E03.9 Hypothyroidism, unspecified; R73.01 Impaired fasting glucose; E55.9 Vitamin D deficiency, unspecified; R30.0 Dysuria
CPT/HCPCS: 36415; 80053; 80061; 81001; 82306; 83036; 84439; 84443; 85025; 87086

== ENCOUNTER 2024-02-18 08:41 | Outpatient (AMB) | payer MEDICARE, OTHER, SELFPAY ==
--- NOTE | 2024-02-18 08:45 | MHC.PC.OV ---
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 Allergies cortisone Allergy (Mild, Verified 02/18/24 09:02) swelling adhesive Allergy (Verified 02/18/24 09:02) Redness of Skin apple Allergy (Verified 02/18/24 09:02) Unknown carrot Allergy (Verified 02/18/24 09:02) Unknown angelo [cherries] Allergy (Verified 02/18/24 09:02) Unknown codeine Adverse Reaction (Severe, Verified 02/18/24 09:02) mental status change, dizziness, fuzzy gabapentin [Neurontin] Adverse Reaction (Severe, Verified 02/18/24 09:02) mental status changes tramadol Adverse Reaction (Severe, Verified 02/18/24 09:02) mental status change, dizziness, fuzzy Medication List - Last Reconciled 02/18/24 by Eldon Mena MD acetaminophen 650 mg (2 x 325 mg) PO Q6H PRN 42 days albuterol sulfate 90 mcg/actuation 2 puffs inhalation Q6H PRN ezetimibe-simvastatin 10-20 mg 1 tab PO DAILY levothyroxine 112 mcg PO QAM 90 days lisinopril 10 mg PO DAILY loratadine (Allergy Relief (loratadine)) 10 mg PO DAILY PRN multivitamin with iron-mineral 2 tabs PO DAILY Tobacco use date assessed: 10/10/23 Fall risk assessment: No Falls in past year Last assessed Fall Risk: 02/18/24 Dental Screening Dental Screen Date: 10/10/23 HPI hypothyroidism, HTN, hyperlipidemia, IFG HPI Details Patient comes in today for her follow up visit States that she feels okay She denies any headaches or dizziness Denies any chest pains, no SOB No nausea/vomiting, no abdominal pain No change in bowel habits noted Adds that she has been experiencing recurrent burning pains in her feet lately that seems to feel worse at night She has also been noticing that her feet would look dark/dusky in appearance often at night and when the burning sensations occur States that she had vascular surgery check out her feet a while back and was advised that they were fine - that she does not have any significant vascular issues in her lower extremities Had her follow up labs done yesterday - to discuss her results [facility] [place] Medical History (Updated 02/18/24 @ 09:29 by Eldon Mena MD) Osteoarthritis of left hip COVID-19 Basal cell carcinoma GERD (gastroesophageal reflux disease) Sleep apnea History of TIA (transient ischemic attack) Obesity (BMI 30-39.9) Allergic rhinitis Nocturnal hypoxemia Lumbar degenerative disc disease Arthritis of sacroiliac joint Degenerative joint disease of left knee Asthma Aime's thyroiditis Hypothyroidism Pure hypercholesterolemia Benign essential hypertension Surgical History History of arthroplasty of left knee (~05/20/23) History of colonoscopy (~12/26/14) History of cholecystectomy History of excision of lesion History of total abdominal hysterectomy History of removal of cyst History of extraction of renal calculus History of tonsillectomy H/O knee surgery Family History Father No problems noted. Mother Stroke Hypertension CVD (cardiovascular disease) Diabetes mellitus Cancer Social History Household Members: Spouse Housing: Apartment Are you a primary special needs child caregiver to a significant other at home: No Do you presently have visiting nurse or other home services: No Alcohol intake: current Alcohol intake frequency: holidays/special occasions only Patient Tobacco Use Status: Never used Tobacco e-Cigarette/Vaping Use: Never Used Second Hand Smoke Exposure: Yes service: No Current occupational status: retired Cognitive needs: No Hearing needs: No Vision needs: Yes (Glasses) Questionnaire Thrive Questionnaire Date Thrive assessed: 10/10/23 I am a: Patient What is your living situation today?: I have a steady place to live Within the past 12 months, did the food you bought not last and you didn't have the money to get more?: Never true Within the past 12 months, did you worry whether your food would run out before you got money to buy more?: Never true Do you have trouble paying for medicines?: No Do you have trouble getting transportation to medical appointments?: No Do you have trouble paying your heating and electricity bill?: No Do you have trouble taking care of your child, family member or friend?: No Do you have trouble with day-to-day activities such as bathing, preparing meals, shopping, managing finances, etc.?: No Are you currently unemployed and looking for a job?: No Are you interested in more education?: No Please select the resources that you would like help with: None THRIVE Score: 0 AUDIT C Alcohol Use Questionnaire (AUDIT-C) 1. How often do you have a drink containing alcohol?: Monthly or less 2. How many drinks containing alcohol do you have on a typical day when you are drinking?: 1 or 2 Total Score: 1 Score Reviewed/Action Taken: Yes ALISA-7 AMB Questionnaire ALISA-7 Date ALISA - 7 assessed: 10/10/23 Source: Developed by Drs. Major Huertas, Alayna Jordan, Harry Monge and colleagues, with an educational halina from [email or web address]. Review of Systems Const Denies chills, Denies fatigue, Denies fever(s) and Denies headache(s) ENT Denies dysphagia, Denies dizziness, Denies otalgia, Denies headache(s), Reports hoarseness (chronic), Denies neck pain, Denies odynophagia and Denies sore throat Card Denies chest pain, Denies irregular heart rhythm, Denies palpitations and Denies dyspnea Resp Denies cough, Denies dyspnea and Denies wheezing GI Denies abdominal pain, Denies constipation, Denies dysphagia, Denies heartburn, Denies diarrhea, Denies nausea, Denies odynophagia and Denies vomiting Denies urinary frequency, Denies dysuria and Denies urinary incontinence Musc Denies back pain, Denies arthralgias, Denies neck pain and Reports stiffness (left knee - at times) Skin/Breast Denies rash Neuro Details: on and off burning sensation in both feet, often at night; notes that her feet would appear dark/dusky when symptoms occur Denies dizziness, Denies headache(s) and Denies paresthesias Psych Denies anxiety Endo Denies fatigue and Denies palpitations Ramakrishna/Lymph Denies easy bruising Aller/Immun Denies wheezing Physical exam (Primary Care) Vital Signs: Last Vital Signs Pulse 64 02/18/24 08:46 BP 130/72 02/18/24 08:46 Pulse Ox 98 02/18/24 08:46 Oxygen Delivery Method Room Air 02/18/24 08:46 BMI result Body Mass Index 32.3 Tobacco/Smoking Status: Tobacco use Status Tobacco use date assessed 10/10/23 02/18/24 08:45 Patient Tobacco Use Status Never used Tobacco 02/18/24 08:45 e-Cigarette/Vaping Use Never Used 02/18/24 08:45 Thrive Assessment: Date of Thrive Assessment Date Thrive assessed 10/10/23 02/18/24 08:45 Const General: no acute distress and alert HENMT Ears: TM's normal bilaterally and EAC's normal Throat: Yes posterior oropharynx normal and Yes tonsils normal (no TP congestion) Neck Neck: Yes no lymphadenopathy and Yes supple Thyroid: Thyroid normal Resp Auscultation: clear to auscultation bilaterally, no rales and no wheezes Cardio Rate: regular rate Rhythm: regular rhythm Heart sounds: no murmurs GI Palpation (GI): Soft to palpation and nontender Auscultation: normal bowel sounds General: Yes no CVA tenderness Back/Spine/Pelvis Back: no CVA tenderness Thoracic/Lumbar Spine: No lumbar spinal tenderness Skin Rashes: no rashes Extrem General: Yes no clubbing, cyanosis or edema Results Reviewed Results Reviewed: Laboratory Tests 02/17/24 02/17/24 07:07 07:08 WBC 5.0 Hgb 15.5 Hct 44.0 Plt Count 192 Sodium 142 Potassium 4.6 Creatinine 0.78 Estimated GFR > 60 Fasting Glucose 118 H Hemoglobin A1c % 5.9 Calcium 9.7 AST 27 ALT 32 H Triglycerides 103 Cholesterol 144 LDL Cholesterol, Calc 77 HDL Cholesterol 47 25-OH Vitamin D Total 41.4 TSH 5.05 H Free T4 0.81 Ur Specific [place] 1.010 Urine Protein Negative Urine Glucose (UA) Negative Urine Blood Trace H Urine Nitrite Negative Ur Leukocyte Esterase Large (3+) H Assessment and Plan Assessment & Plan (1) Pure hypercholesterolemia: Code(s): E78.00 - Pure hypercholesterolemia, unspecified Plan: Results of her labs done yesterday reviewed and discussed with patient Reinforced low cholesterol diet Continue Ezetimibe-Simvastatin 10-20 mg (Vytorin) QD Will recheck her labs and fasting lipids in 4 months for follow-up (2) Benign essential hypertension: Code(s): I10 - Essential (primary) hypertension Plan: Reinforced low sodium diet - goal is systolic BP of at least 130 mm or less Continue Lisinopril 10 mg QD Patient is reminded to continue monitoring her blood pressure regularly (3) Chronic hoarseness: Code(s): R49.0 - Dysphonia Plan: Is most likely due to her unilateral vocal cord paralysis She was referred to ENT for further evaluation and management previously and has been advised that especially since she has no trouble swallowing or breathing, there is not much that can be done in terms of intervention for her condition (4) Hypothyroidism: Code(s): E03.9 - Hypothyroidism, unspecified Qualifiers: Hypothyroidism type: due to Aime's thyroiditis Qualified Code(s): E03.8 - Other specified hypothyroidism; E06.3 - Autoimmune thyroiditis Plan: Her serum TSH level is again gradually improving with the increase in her Levothyroxine dose at her last visit; her free T4 level remains normal on her recent labs Continue Levothyroxine 112 mcg QD Will recheck her TFTs in 4 months for follow up (5) Aime's thyroiditis: Code(s): E06.3 - Autoimmune thyroiditis Plan: Will continue to monitor her TFTs regularly Follow-up with endocrinology as scheduled (6) Asthma: Code(s): J45.909 - Unspecified asthma, uncomplicated Qualifiers: Asthma severity: moderate Asthma persistence: persistent Asthma complication type: uncomplicated Qualified Code(s): J45.40 - Moderate persistent asthma, uncomplicated Plan: PFTs done back in July 2022 revealed findings consistent with asthma - states that her respiratory symptoms have been mostly mild and only bother her occasionally and mostly only with increased exertion Continue Albuterol HFA 1 to 2 inhalations PRN (7) Nocturnal hypoxemia: Code(s): G47.34 - Idiopathic sleep related nonobstructive alveolar hypoventilation Plan: Patient has not had to use her oxygen when sleeping at night for years now and states that she has not had any problems without it so far She has been advised that this may actually be partially related to her unilateral vocal cord paralysis (8) Impaired fasting glucose: Code(s): R73.01 - Impaired fasting glucose Plan: Her HgbA1c has increased slightly to 5.9% on her labs done yesterday; it was at 5.7% when checked last year Reinforced low calorie diet /exercise as tolerated Will recheck her FBS and HgbA1c in 4 months for follow up (9) Neuropathy: Code(s): G62.9 - Polyneuropathy, unspecified Plan: Have discussed with patient that her recent lower extremity / feet symptoms are most likely neuropathic symptoms (pain) SHe is wondering if they may be related to her CVA/TIA that she had back in 2007 - recalls that she was advised by neurology (Dr. Leary) that she may have MS although she was never formally tested for or diagnosed with MS Have advised patient that MS at the time (based on her symptoms and brain MRI findings) is just one possibility and that does not necessarily mean that she has MS Patient states that her lower extremity symptoms are tolerable for now and she prefers not to take any more Rx at this time but is advised that the Rx can help if her symptoms progress to a point where she is unable to sleep well at night - states that she will call when they get worse Advised that we should also consider (later on) getting her tested further for this, including EMG & NCV for further evaluation (10) Allergic rhinitis: Code(s): J30.9 - Allergic rhinitis, unspecified Qualifiers: Allergic rhinitis trigger: unspecified Allergic rhinitis seasonality: unspecified Qualified Code(s): J30.9 - Allergic rhinitis, unspecified Plan: Continue OTC Loratadine 10 mg daily PRN (11) Elevated LFTs: Code(s): R79.89 - Other specified abnormal findings of blood chemistry Plan: Improved; were most likely due to fatty liver changes related to her weight LFTs have remained normal on her recent labs and will continue to monitor her LFTs regularly (12) Degenerative joint disease of left knee: Code(s): M17.12 - Unilateral primary osteoarthritis, left knee Qualifiers: Osteoarthritis type: primary Qualified Code(s): M17.12 - Unilateral primary osteoarthritis, left knee Plan: S/P total left knee arthroplasty with Dr. Sparks back on 05/20/2023 She completed physical therapy/rehab and is currently doing well and is back to normal activities with no significant restrictions Follow up with orthopedics as scheduled or as needed (13) Lumbar degenerative disc disease: Code(s): M51.36 - Other intervertebral disc degeneration, lumbar region Plan: Reinforced activity and weight lifting restrictions to minimize her back symptoms (14) Arthritis of sacroiliac joint: Code(s): M47.818 - Spondylosis without myelopathy or radiculopathy, sacral and sacrococcygeal region Plan: Continue Tizanidine 4 mg every 8 hours PRN (15) Obesity (BMI 30-39.9): Code(s): E66.9 - Obesity, unspecified Plan: Reinforced diet/exercise as tolerated /lose weight Plan Follow up in 4 months Orders: Orders Comprehensive [place]. Panel Fast 4 Months E78.00 - Pure hypercholesterolemia, unspecified Complete Blood Count Auto Diff 4 Months D64.9 - Anemia, unspecified Lipid Panel 4 Months E78.00 - Pure hypercholesterolemia, unspecified Hemoglobin A1c 4 Months R73.01 - Impaired fasting glucose UA CC w/rflx Micro + Cult 4 Months R30.0 - Dysuria Vitamin D 25-OH Total 4 Months E55.9 - Vitamin D deficiency, unspecified Free T4 (Free Thyroxine) 4 Months E03.9 - Hypothyroidism, unspecified Thyroid Stimulating Hormone 4 Months E03.9 - Hypothyroidism, unspecified Coding Level of Care Code Est Pt Level 4 (72100) Complex EM visit Add On G2211 Diagnoses Pure hypercholesterolemia E78.00 Benign essential hypertension I10 Chronic hoarseness R49.0 Hypothyroidism due to Aime's thyroiditis E03.8; E06.3 Hypothyroidism type: due to Aime's thyroiditis Aime's thyroiditis E06.3 Moderate persistent asthma without complication J45.40 Asthma severity: moderate Asthma persistence: persistent Asthma complication type: uncomplicated Nocturnal hypoxemia G47.34 Impaired fasting glucose R73.01 Neuropathy G62.9 Allergic rhinitis, unspecified seasonality, unspecified trigger J30.9 Allergic rhinitis trigger: unspecified Allergic rhinitis seasonality: unspecified Elevated LFTs R79.89 Primary osteoarthritis of left knee M17.12 Osteoarthritis type: primary Lumbar degenerative disc disease M51.36 Arthritis of sacroiliac joint M47.818 Obesity (BMI 30-39.9) E66.9
[2024-02-18 08:46] VITALS: BP 130/72; PULSE 64; O2SAT 98; BMI 32.3
== END 2024-02-18 09:37 | disposition home or self-care (01) ==
PROVIDERS: PCP Internal Medicine; Visit Provider Internal Medicine
DX: E78.00 Pure hypercholesterolemia, unspecified (principal); I10 Essential (primary) hypertension; R49.0 Dysphonia; E03.8 Other specified hypothyroidism; E06.3 Autoimmune thyroiditis; J45.40 Moderate persistent asthma, uncomplicated; G47.34 Idiopathic sleep related nonobstructive alveolar hypoventilation; R73.01 Impaired fasting glucose; G62.9 Polyneuropathy, unspecified; J30.9 Allergic rhinitis, unspecified; R79.89 Other specified abnormal findings of blood chemistry; M17.12 Unilateral primary osteoarthritis, left knee; M51.36 Other intervertebral disc degeneration, lumbar region; M47.818 Spondylosis without myelopathy or radiculopathy, sacral and sacrococcygeal region; E66.9 Obesity, unspecified
CPT/HCPCS: 99214; G2211

== ENCOUNTER 2024-05-10 09:14 | Outpatient (REF) | payer MEDICARE, OTHER, SELFPAY ==
--- NOTE | ~2024-05-10 | MM_ITS ---
EXAMINATION: MM SCREENING DIGITAL BREAST TOMOSYNTHESIS, BILATERAL CLINICAL INFORMATION: Screening. Asymptomatic. COMPARISON: Mammography: Comparison is made with available priors TECHNIQUE: Digital breast mammography with tomosynthesis is performed in both the craniocaudal and mediolateral oblique views along with computer-aided detection (CAD). FINDINGS: There are scattered areas of fibroglandular density (ACR BI-RADS breast composition Category b). There are no significant masses, abnormal calcifications, or other abnormalities. MM/MM tomosynthesis screening BI IMPRESSION: No mammographic evidence of malignancy. ASSESSMENT: BI-RADS BI-RADS 1 - Negative RECOMMENDATION: Routine annual mammography screening. 1 year F/U This examination should not preclude the clinical evaluation of a suspicious palpable abnormality. This patient's information was entered into a reminder system with a target due date for their next mammogram. Electronically signed by: Ana Vuong DO 05/20/2024 06:35 PM EDT
== END 2024-05-10 09:15 | disposition home or self-care (01) ==
LOC: HO.MAMMO 09:14
PROVIDERS: PCP Internal Medicine; Visit Provider Internal Medicine
DX: Z12.31 Encounter for screening mammogram for malignant neoplasm of breast (principal)
CPT/HCPCS: 77063; 77067

== ENCOUNTER → 2024-05-10 09:30 | Outpatient (BNV) | payer MEDICARE, OTHER, SELFPAY | PROVIDERS: PCP Internal Medicine; Visit Provider Internal Medicine | DX: Z12.31 Encounter for screening mammogram for malignant neoplasm of breast (principal) | CPT/HCPCS: 77063; 77067 ==

== ENCOUNTER 2024-06-14 06:03 | Outpatient (REF) | payer MEDICARE, OTHER, SELFPAY ==
[2024-06-14 06:23] LABS: MANUAL DIFF FLAG NO
[2024-06-14 07:41] LABS: Basophils Absolute Auto 0.1 X10*3/uL (0.0-0.2); Basophils Percent Auto 0.9 % (0-2); Eosinophils Absolute Auto 0.1 X10*3/uL (0.0-0.4); Hematocrit 43.8 % (37.0-47.0); Hemoglobin 15.2 g/dl (12.0-16.0); Imm Gran Abs Auto 0.01 X10*3/uL (0.00-0.03); Imm Gran Pct Auto 0.2 % (0.0-0.4); Lymphocytes Absolute Auto 2.1 X10*3/uL (1.2-4.9); Lymphocytes Percent Auto 38.3 % (20-40); Mean Corpuscular HGB Conc 34.7 g/dl (31.0-35.0); Mean Corpuscular Hemoglobin 30.6 pg (27.0-33.0); Mean Corpuscular Volume 88.3 fL (80.0-98.0); Mean Platelet Volume 10.6 fL (9.4-12.3); Monocytes Absolute Auto 0.5 X10*3/uL (0.1-1.2); Monocytes Percent Auto 8.4 % (2-11); Neutrophils Absolute Auto 2.8 x10*3/uL (2.0-8.3); Neutrophils Percent Auto 50.2 % (45-73); Platelet Count 233 X10*3/uL (160-400); Red Blood Count 4.96 X10*6/uL (4.20-5.50); Red Cell Distribution Width 12.3 % (11.0-16.0); White Blood Count 5.5 X10*3/uL (4.8-10.8)
[2024-06-14 08:04] LABS: Estimated Average Glucose 126 mg/dL; Hemoglobin A1C 165.7545 umol/L; Total Hemoglobin (HGBA1C) 3985.2238 umol/L
[2024-06-14 08:40] LABS: Alanine Aminotransferase 43 U/L (0-31); Albumin Level 4.3 g/dL (3.5-5.0); Alkaline Phosphatase 83 U/L (39-117); Anion Gap 15 (12-20); Aspartate Amino Transferase 38 U/L (5-31); Bilirubin Total 0.8 mg/dL (0.0-1.0); Blood Urea Nitrogen 15 mg/dL (9-16); Calcium 9.8 mg/dL (8.4-10.2); Carbon Dioxide 24 mmol/L (22-29); Chloride 108 mmol/L (96-108); Cholesterol 134 mg/dL (<200); Estimated Glomerular Filt Rate > 60; Glucose Fasting 110 mg/dL (60-99); HDL Cholesterol 45 mg/dL (>40); LDL Cholesterol Calculated 70 mg/dL (<100); Potassium 4.6 mmol/L (3.3-5.1); Sodium 142 mmol/L (135-145); Total Protein 7.2 g/dL (6.5-8.0); Triglycerides 95 mg/dL (<150)
[2024-06-14 08:59] LABS: Free T4 (Free Thyroxine) 1.03 ng/dL (0.71-1.85); Thyroid Stimulating Hormone 2.41 uIU/mL (0.32-4.0); Vitamin D 25-OH Total 50.3 ng/mL (>30)
[2024-06-14 09:55] LABS: Appearance Urine Clear; Color Urine Yellow; Glucose Urine UA Negative (Negative); Leukocyte Esterase Urine Moderate (2+) (Negative); Nitrite Urine Negative (Negative); Specific Gravity - Urine 1.015 (1.005-1.025); UMIC TRIGGER UACC YES; Urine Blood Negative (Negative); Urine Ketones Negative (Negative); Urine Protein Negative (Neg-Trace)
[2024-06-14 09:58] LABS: Bacteria Urine None Seen (None Seen); Hyaline Casts Urine 0-2 /LPF (0-2); RBC Urine 0-2 /HPF (0-2); UACC Culture Trigger YES
== END 2024-06-14 06:04 | disposition home or self-care (01) ==
LOC: HO.LAB 06:03
PROVIDERS: PCP Internal Medicine; Visit Provider Internal Medicine
DX: D64.9 Anemia, unspecified (principal); R73.01 Impaired fasting glucose; E55.9 Vitamin D deficiency, unspecified; E03.9 Hypothyroidism, unspecified; E78.00 Pure hypercholesterolemia, unspecified; R30.0 Dysuria
CPT/HCPCS: 36415; 80053; 80061; 81001; 81003; 82306; 83036; 84439; 84443; 85025; 87086

== ENCOUNTER 2024-06-15 08:50 | Outpatient (AMB) | payer MEDICARE, OTHER, SELFPAY ==
[2024-06-15 08:52] VITALS: BP 138/76; PULSE 90; O2SAT 97; BMI 32.0
--- NOTE | 2024-06-15 08:52 | A.OFFPC_ITS ---
Vital Signs 06/15/24 08:52 Height 5 ft 7 in Weight 204 lb 6 oz BMI 32.0 BP 138/76 Blood Pressure Location Lt brachial Position Sitting Pulse 90 Pulse Source Pulse Oximeter Pulse Oximetry (%) 97 Oxygen Delivery Method Room Air Intake Visit Reasons: 4 Month F/U Alignment Technician Required: No Accompanied by: Self / Same As Patient Allergies cortisone Allergy (Mild, Verified 06/15/24 09:07) swelling adhesive Allergy (Verified 06/15/24 09:07) Redness of Skin apple Allergy (Verified 06/15/24 09:07) Unknown carrot Allergy (Verified 06/15/24 09:07) Unknown angelo [cherries] Allergy (Verified 06/15/24 09:07) Unknown codeine Adverse Reaction (Severe, Verified 06/15/24 09:07) mental status change, dizziness, fuzzy gabapentin [Neurontin] Adverse Reaction (Severe, Verified 06/15/24 09:07) mental status changes tramadol Adverse Reaction (Severe, Verified 06/15/24 09:07) mental status change, dizziness, fuzzy Medication List - Last Reconciled 06/15/24 by Eldon Mena MD acetaminophen 650 mg (2 x 325 mg) PO Q6H PRN 42 days albuterol sulfate 90 mcg/actuation 2 puffs inhalation Q6H PRN ezetimibe-simvastatin 10-20 mg 1 tab PO DAILY levothyroxine 112 mcg PO QAM 90 days lisinopril 10 mg PO DAILY loratadine (Allergy Relief (loratadine)) 10 mg PO DAILY PRN multivitamin with iron-mineral 2 tabs PO DAILY Tobacco use date assessed: 06/15/24 Fall risk assessment: 1 Fall in past year Last assessed Fall Risk: 06/15/24 Dental Screening Dental Screen Date: 06/15/24 Did you have a dental visit in the last 12 months?: Yes Did you have a dental problem in the last 6 months where you did not have access to dental care?: No Was dental information given to patient?: Patient has dentist HPI 4 Month F/U HPI Details Patient comes in today for her follow up visit States that she feels okay She denies any headaches or dizziness Denies any chest pains, no SOB No nausea/vomiting, no abdominal pain No change in bowel habits noted She had her follow up labs done yesterday - to discuss her results [facility] Medical History Osteoarthritis of left hip COVID-19 Basal cell carcinoma GERD (gastroesophageal reflux disease) Sleep apnea History of TIA (transient ischemic attack) Obesity (BMI 30-39.9) Allergic rhinitis Nocturnal hypoxemia Lumbar degenerative disc disease Arthritis of sacroiliac joint Degenerative joint disease of left knee Asthma Aime's thyroiditis Hypothyroidism Pure hypercholesterolemia Benign essential hypertension Surgical History History of arthroplasty of left knee (~05/20/23) History of colonoscopy (~12/26/14) History of cholecystectomy History of excision of lesion History of total abdominal hysterectomy History of removal of cyst History of extraction of renal calculus History of tonsillectomy H/O knee surgery Family History Father No problems noted. Mother Stroke Hypertension CVD (cardiovascular disease) Diabetes mellitus Cancer Social History Household Members: Spouse Housing: Apartment Are you a primary point of care technician to a significant other at home: No Do you presently have visiting nurse or other home services: No Alcohol intake: current Alcohol intake frequency: holidays/special occasions only Patient Tobacco Use Status: Never used Tobacco e-Cigarette/Vaping Use: Never Used Second Hand Smoke Exposure: Yes service: No Current occupational status: retired Cognitive needs: No Hearing needs: No Vision needs: Yes (Glasses) Questionnaire PHQ-9 Over the last 2 weeks, how often have you been bothered by any of the following problems? 1. Little interest or pleasure in doing things: not at all 2. Feeling down, depressed, or hopeless: not at all 3. Trouble falling or staying asleep, or sleeping too much: not at all 4. Feeling tired or having little energy: not at all 5. Poor appetite or overeating: not at all 6. Feeling bad about yourself - or that you are a failure or have let yourself or your family down: not at all 7. Trouble concentrating on things, such as reading the newspaper or watching television: not at all 8. Moving or speaking so slowly that other people could have noticed. Or the opposite - being so fidgety or restless that you have been moving around a lot more than usual: not at all 9. Thoughts that you would be better off or of hurting yourself in some way: not at all Total score: 0 Depression Screening Interpretation: Negative Depression Screening Done: Yes 61582 - PHQ-9 Billing: Yes Source: Developed by Drs. Major Huertas, Alayna Jordan, Harry Monge and colleagues, with an educational halina from [employer]. Thrive Questionnaire Date Thrive assessed: 06/15/24 I am a: Patient What is your living situation today?: I have a steady place to live Within the past 12 months, did the food you bought not last and you didn't have the money to get more?: Never true Within the past 12 months, did you worry whether your food would run out before you got money to buy more?: Never true Do you have trouble paying for medicines?: No Do you have trouble getting transportation to medical appointments?: No Do you have trouble paying your heating and electricity bill?: No Do you have trouble taking care of your child, family member or friend?: No Do you have trouble with day-to-day activities such as bathing, preparing meals, shopping, managing finances, etc.?: No Are you currently unemployed and looking for a job?: No Are you interested in more education?: No Please select the resources that you would like help with: None Currently or been in a relationship where the following occur: No concerns reported THRIVE Score: 0 AUDIT C Alcohol Use Questionnaire (AUDIT-C) 1. How often do you have a drink containing alcohol?: Monthly or less 2. How many drinks containing alcohol do you have on a typical day when you are drinking?: 1 or 2 Total Score: 1 Score Reviewed/Action Taken: Yes ALISA-7 AMB Questionnaire ALISA-7 Date ALISA - 7 assessed: 06/15/24 Feeling nervous, anxious, or on edge: 0 = Not at all Not being able to stop or control worryin = Not at all Worrying too much about different things: 0 = Not at all Trouble relaxin = Not at all Being so restless that it is hard to sit still: 0 = Not at all Becoming easily annoyed or irritable: 0 = Not at all Feeling afraid as if something awful might happen: 0 = Not at all Total ALISA-7 score (0-4 normal; 5-9 mild; 10-14 moderate; 15-21 severe): 0 Source: Developed by Drs. Major Huertas, Alayna Jordan, Harry Monge and colleagues, with an educational halina from [employer]. Review of Systems Const Denies chills, Denies fatigue, Denies fever(s) and Denies headache(s) ENT Denies dysphagia, Denies dizziness, Denies otalgia, Denies headache(s), Reports hoarseness (chronic), Denies neck pain, Denies odynophagia and Denies sore throat Card Denies chest pain, Denies irregular heart rhythm, Denies palpitations and Denies dyspnea Resp Denies cough, Denies dyspnea and Denies wheezing GI Denies abdominal pain, Denies constipation, Denies dysphagia, Denies heartburn, Denies diarrhea, Denies nausea, Denies odynophagia and Denies vomiting Denies urinary frequency, Denies dysuria and Denies urinary incontinence Musc Denies back pain, Denies arthralgias, Denies neck pain and Reports stiffness (left knee - at times) Skin/Breast Denies rash Neuro Details: on and off burning sensation in both feet, often at night; notes that her feet would appear dark/dusky when symptoms occur Denies dizziness, Denies headache(s) and Denies paresthesias Psych Denies anxiety Endo Denies fatigue and Denies palpitations Ramakrishna/Lymph Denies easy bruising Aller/Immun Denies wheezing Physical exam (Primary Care) Vital Signs: Last Vital Signs Pulse 90 06/15/24 08:52 BP 138/76 06/15/24 08:52 Pulse Ox 97 06/15/24 08:52 Oxygen Delivery Method Room Air 06/15/24 08:52 BMI result Body Mass Index 32.0 Tobacco/Smoking Status: Tobacco use Status Tobacco use date assessed 06/15/24 06/15/24 08:56 Patient Tobacco Use Status Never used Tobacco 06/15/24 08:56 e-Cigarette/Vaping Use Never Used 06/15/24 08:56 PHQ-9: PHQ-9 Score PHQ-9: Total score 0 06/15/24 09:43 Depression Screening Interpretation: Negative Thrive Assessment: Date of Thrive Assessment Date Thrive assessed 06/15/24 06/15/24 08:56 Currently or been in a relationship where the following occur: No concerns reported Const General: no acute distress and alert HENMT Ears: TM's normal bilaterally and EAC's normal Throat: Yes posterior oropharynx normal and Yes tonsils normal (no TP congestion) Neck Neck: Yes no lymphadenopathy and Yes supple Thyroid: Thyroid normal Resp Auscultation: clear to auscultation bilaterally, no rales and no wheezes Cardio Rate: regular rate Rhythm: regular rhythm Heart sounds: no murmurs GI Palpation (GI): Soft to palpation and nontender Auscultation: normal bowel sounds General: Yes no CVA tenderness Back/Spine/Pelvis Back: no CVA tenderness Thoracic/Lumbar Spine: No lumbar spinal tenderness Skin Rashes: no rashes Extrem General: Yes no clubbing, cyanosis or edema Office Procedures Flu Questionnaire Does the patient have a severe egg allergy?: No Immunizations Fluarix Triv [id number] (PF) 45 mcg (15 mcg x 3)/0.5 mL IM syringe Performing Provider: Eldon Mena MD [place] [facility] [place] [facility] Documented (not given) by: LOLITA Flanagan on 06/15/24 09:05 Reason Not Given: Received Previously tetanus-diphtheria toxoids-Td 2 Lf unit-2 Lf unit/0.5 mL IM suspension Performing Provider: Eldon Mena MD [place]forming [place] [facility] [place] [facility] Administered by: LOLITA Flanagan on 06/15/24 09:43 Dose Route Admin Location Dispensed Lot Number Expiration Date [employer] 0.5 mL IM Left Deltoid 0.5 mL [id number] 09/20/24 [address]-5 [employer] VIS Given Date VIS Provided VIS Publication Date 06/15/24 Single Vaccine 21 Eligibility Eligibility Date Funding Source Not VFC Eligible 06/15/24 State funds Results Reviewed Results Reviewed: Laboratory Tests 06/14/24 06/14/24 06:20 06:21 WBC 5.5 Hgb 15.2 Hct 43.8 Plt Count 233 Sodium 142 Potassium 4.6 Creatinine 0.77 Estimated GFR > 60 Fasting Glucose 110 H Hemoglobin A1c % 6.0 Calcium 9.8 AST 38 H ALT 43 H Triglycerides 95 Cholesterol 134 LDL Cholesterol, Calc 70 HDL Cholesterol 45 25-OH Vitamin D Total 50.3 TSH 2.41 Free T4 1.03 Ur Specific [place] 1.015 Urine Protein Negative Urine Glucose (UA) Negative Urine Blood Negative Urine Nitrite Negative Ur Leukocyte Esterase Moderate (2+) H Coding Level of Care Code Est Pt Level 4 (24757) Complex EM visit Add On G2211 Diagnoses Pure hypercholesterolemia E78.00 Benign essential hypertension I10 Hypothyroidism due to Aime's thyroiditis E03.8; E06.3 Hypothyroidism type: due to Aime's thyroiditis Chronic hoarseness R49.0 Aime's thyroiditis E06.3 Impaired fasting glucose R73.01 Moderate persistent asthma without complication J45.40 Asthma complication type: uncomplicated Asthma persistence: persistent Asthma severity: moderate Nocturnal hypoxemia G47.34 Neuropathy G62.9 Elevated LFTs R79.89 Allergic rhinitis, unspecified seasonality, unspecified trigger J30.9 Allergic rhinitis seasonality: unspecified Allergic rhinitis trigger: unspecified Primary osteoarthritis of left knee M17.12 Osteoarthritis type: primary Degeneration of intervertebral disc of lumbar region with discogenic back pain M51.360 Disc-related pain type: discogenic back pain only Arthritis of sacroiliac joint M47.818 Obesity (BMI 30-39.9) E66.9 Assessment & Plan Assessment & Plan (1) Pure hypercholesterolemia: Code(s): E78.00 - Pure hypercholesterolemia, unspecified Category: Medical Plan: Results of her labs done yesterday reviewed and discussed with patient Reinforced low cholesterol diet Continue Ezetimibe-Simvastatin 10-20 mg (Vytorin) QD Will recheck her labs and fasting lipids in 4 months for follow-up (2) Benign essential hypertension: Code(s): I10 - Essential (primary) hypertension Category: Medical Plan: Reinforced low sodium diet - goal is systolic BP of at least 130 mm or less Continue Lisinopril 10 mg QD Patient is reminded to continue monitoring her blood pressure regularly (3) Hypothyroidism: Code(s): E03.9 - Hypothyroidism, unspecified Category: Medical Qualifiers: Hypothyroidism type: due to Aime's thyroiditis Qualified Code(s): E03.8 - Other specified hypothyroidism; E06.3 - Autoimmune thyroiditis Plan: Her serum TSH level is now normal on her follow up labs; her free T4 level remains normal Continue Levothyroxine 112 mcg QD Will recheck her TFTs in 4 months for follow up (4) Chronic hoarseness: Code(s): R49.0 - Dysphonia Category: Medical Plan: This is most likely due to her unilateral vocal cord paralysis She was referred to ENT for further evaluation and management previously and has been advised that especially since she has no trouble swallowing or breathing, there is not much that can be done in terms of intervention for her condition (5) Aime's thyroiditis: Code(s): E06.3 - Autoimmune thyroiditis Category: Medical Plan: Will continue to monitor her TFTs regularly Follow-up with endocrinology as scheduled (6) Impaired fasting glucose: Code(s): R73.01 - Impaired fasting glucose Category: Medical Plan: Her HgbA1c was at 6.0% on her labs done yesterday; it was previously at 5.9% a few months ago Reinforced low calorie diet /exercise as tolerated Will recheck her FBS and HgbA1c in 4 months for follow up (7) Asthma: Code(s): J45.909 - Unspecified asthma, uncomplicated Category: Medical Qualifiers: Asthma complication type: uncomplicated Asthma persistence: persistent Asthma severity: moderate Qualified Code(s): J45.40 - Moderate persistent asthma, uncomplicated Plan: Her PFTs done back in July 2022 revealed findings consistent with asthma - p atient states that her respiratory symptoms have been mostly mild and only bother her occasionally and only with increased exertion Continue Albuterol HFA 1 to 2 inhalations PRN (8) Nocturnal hypoxemia: Code(s): G47.34 - Idiopathic sleep related nonobstructive alveolar hypoventilation Category: Medical Plan: Patient has not had to use her oxygen when sleeping at night for years now and states that she has not had any problems without it so far She has been advised that this may actually be partially related to her unilateral vocal cord paralysis (9) Neuropathy: Code(s): G62.9 - Polyneuropathy, unspecified Category: Medical Plan: Have advised patient previously that her recent lower extremity / feet symptoms are most likely neuropathic symptoms (pain) She is wondering if they may be related to her CVA/TIA that she had back in 2007 - recalls that she was advised by neurology (Dr. Leary) that she may have MS although she was never formally tested for or diagnosed with MS Have advised patient that MS at the time (based on her symptoms and brain MRI findings) is just one possibility and that does not necessarily mean that she has MS Patient states that her lower extremity symptoms have remained tolerable for now and she prefers not to take any more Rx or do any other tests at this time but she is advised that if her symptoms progress to a point where she is unable to sleep well at night, then the Rx can help - states that she will call when they get worse Advised that we should also consider (later on) getting her tested further for this, including EMG & NCV for further evaluation (10) Elevated LFTs: Code(s): R79.89 - Other specified abnormal findings of blood chemistry Category: Medical Plan: Improved; were most likely due to fatty liver changes related to her weight Her LFTs have remained normal on her recent labs Will continue to monitor her LFTs regularly (11) Allergic rhinitis: Code(s): J30.9 - Allergic rhinitis, unspecified Category: Medical Qualifiers: Allergic rhinitis seasonality: unspecified Allergic rhinitis trigger: unspecified Qualified Code(s): J30.9 - Allergic rhinitis, unspecified Plan: Continue OTC Loratadine 10 mg daily PRN (12) Degenerative joint disease of left knee: Code(s): M17.12 - Unilateral primary osteoarthritis, left knee Category: Medical Qualifiers: Osteoarthritis type: primary Qualified Code(s): M17.12 - Unilateral primary osteoarthritis, left knee Plan: S/P total left knee arthroplasty with Dr. Sparks back on 05/20/2023 She completed physical therapy/rehab and is currently doing well and is back to normal daily activities with no significant restrictions Follow up with orthopedics as scheduled or as needed (13) Lumbar degenerative disc disease: Code(s): M51.36 - Other intervertebral disc degeneration, lumbar region Category: Medical Qualifiers: Disc-related pain type: discogenic back pain only Qualified Code(s): M51.360 - Other intervertebral disc degeneration, lumbar region with discogenic back pain only Plan: Reinforced activity and weight lifting restrictions to minimize her back symptoms (14) Arthritis of sacroiliac joint: Code(s): M47.818 - Spondylosis without myelopathy or radiculopathy, sacral and sacrococcygeal region Category: Medical Plan: Continue Tizanidine 4 mg every 8 hours PRN (15) Obesity (BMI 30-39.9): Code(s): E66.9 - Obesity, unspecified Category: Medical Plan: Reinforced diet/exercise as tolerated /lose weight Plan Td booster given today To return in 4 months for her annual physical examination Orders: Orders Complete Blood Count Auto Diff 4 Months D64.9 - Anemia, unspecified, Z00.00 - Encounter for general adult medical examination without abnormal findings Lipid Panel 4 Months E78.00 - Pure hypercholesterolemia, unspecified, Z00.00 - Encounter for general adult medical examination without abnormal findings Thyroid Stimulating Hormone 4 Months E03.9 - Hypothyroidism, unspecified, Z00.00 - Encounter for general adult medical examination without abnormal findings Vitamin D 25-OH Total 4 Months E55.9 - Vitamin D deficiency, unspecified, Z00.00 - Encounter for general adult medical examination without abnormal findings Hemoglobin A1c 4 Months R73.01 - Impaired fasting glucose, Z00.00 - Encounter for general adult medical examination without abnormal findings Td State Immunization Today Z23 - Encounter for immunization Influenza [id number] Immunization Today Z23 - Encounter for immunization Comprehensive [place]. Panel Fast 4 Months E78.00 - Pure hypercholesterolemia, unspecified, Z00.00 - Encounter for general adult medical examination without abnormal findings Free T4 (Free Thyroxine) 4 Months E03.9 - Hypothyroidism, unspecified, Z00.00 - Encounter for general adult medical examination without abnormal findings UA CC w/rflx Micro + Cult 4 Months R30.0 - Dysuria, Z00.00 - Encounter for general adult medical examination without abnormal findings
== END 2024-06-15 09:45 | disposition home or self-care (01) ==
LOC: HO.HMCH 08:50
PROVIDERS: PCP Internal Medicine; Visit Provider Internal Medicine
DX: E78.00 Pure hypercholesterolemia, unspecified (principal); I10 Essential (primary) hypertension; E66.9 Obesity, unspecified; Z68.32 Body mass index [BMI] 32.0-32.9, adult; E03.8 Other specified hypothyroidism; E06.3 Autoimmune thyroiditis; R49.0 Dysphonia; R73.01 Impaired fasting glucose; J45.40 Moderate persistent asthma, uncomplicated; G47.34 Idiopathic sleep related nonobstructive alveolar hypoventilation; G62.9 Polyneuropathy, unspecified; Z23 Encounter for immunization

== ENCOUNTER → 2024-06-15 08:50 | Outpatient (BNVA) | payer MEDICARE, OTHER, SELFPAY | PROVIDERS: PCP Internal Medicine; Visit Provider Internal Medicine | DX: Z23 Encounter for immunization (principal); E78.00 Pure hypercholesterolemia, unspecified; I10 Essential (primary) hypertension; E03.8 Other specified hypothyroidism; E06.3 Autoimmune thyroiditis; R49.0 Dysphonia; J45.40 Moderate persistent asthma, uncomplicated; G47.34 Idiopathic sleep related nonobstructive alveolar hypoventilation; G62.9 Polyneuropathy, unspecified; R79.89 Other specified abnormal findings of blood chemistry; M17.12 Unilateral primary osteoarthritis, left knee; M51.360 Other intervertebral disc degeneration, lumbar region with discogenic back pain only; M47.818 Spondylosis without myelopathy or radiculopathy, sacral and sacrococcygeal region | CPT/HCPCS: 90471; 90714; 99212 ==

== ENCOUNTER 2024-10-02 07:22 | Outpatient (REF) | payer MEDICARE, OTHER, SELFPAY ==
[2024-10-02 07:50] LABS: MANUAL DIFF FLAG NO
[2024-10-02 09:09] LABS: Basophils Absolute Auto 0.1 X10*3/uL (0.0-0.2); Basophils Percent Auto 1.3 % (0-2); Eosinophils Absolute Auto 0.1 X10*3/uL (0.0-0.4); Eosinophils Percent Auto 2.4 % (0-4); Hematocrit 43.6 % (37.0-47.0); Hemoglobin 15.1 g/dl (12.0-16.0); Imm Gran Abs Auto 0.01 X10*3/uL (0.00-0.03); Imm Gran Pct Auto 0.2 % (0.0-0.4); Lymphocytes Absolute Auto 1.6 X10*3/uL (1.2-4.9); Lymphocytes Percent Auto 36.1 % (20-40); Mean Corpuscular HGB Conc 34.6 g/dl (31.0-35.0); Mean Corpuscular Hemoglobin 30.8 pg (27.0-33.0); Mean Platelet Volume 10.7 fL (9.4-12.3); Monocytes Absolute Auto 0.4 X10*3/uL (0.1-1.2); Neutrophils Absolute Auto 2.4 x10*3/uL (2.0-8.3); Platelet Count 207 X10*3/uL (160-400); Red Cell Distribution Width 12.8 % (11.0-16.0); White Blood Count 4.5 X10*3/uL (4.8-10.8)
[2024-10-02 09:20] LABS: Estimated Average Glucose 123 mg/dL; Hemoglobin A1C 160.0117 umol/L; Hemoglobin A1c % 5.9 % (<6.0); Total Hemoglobin (HGBA1C) 3930.9079 umol/L
[2024-10-02 09:25] LABS: Appearance Urine Cloudy; Color Urine Dark Yellow; Glucose Urine UA Negative (Negative); Leukocyte Esterase Urine Moderate (2+) (Negative); Nitrite Urine Negative (Negative); PH 5.5 (5.0-9.0); UMIC TRIGGER UACC YES; Urine Blood Negative (Negative); Urine Ketones Negative (Negative); Urine Protein Negative (Neg-Trace)
[2024-10-02 09:38] LABS: Bacteria Urine None Seen (None Seen); Hyaline Casts Urine 0-2 /LPF (0-2); RBC Urine 0-2 /HPF (0-2); UACC Culture Trigger YES
[2024-10-02 09:56] LABS: Alanine Aminotransferase 35 U/L (0-31); Alkaline Phosphatase 78 U/L (39-117); Anion Gap 12 (12-20); Aspartate Amino Transferase 30 U/L (5-31); Bilirubin Total 0.6 mg/dL (0.0-1.0); Blood Urea Nitrogen 11 mg/dL (9-16); Calcium 9.3 mg/dL (8.4-10.2); Carbon Dioxide 25 mmol/L (22-29); Chloride 108 mmol/L (96-108); Cholesterol 140 mg/dL (<200); Estimated Glomerular Filt Rate > 60; Glucose Fasting 108 mg/dL (60-99); HDL Cholesterol 51 mg/dL (>40); LDL Cholesterol Calculated 76 mg/dL (<100); Potassium 4.6 mmol/L (3.3-5.1); Sodium 140 mmol/L (135-145); Total Protein 7.3 g/dL (6.5-8.0); Triglycerides 65 mg/dL (<150)
[2024-10-02 10:21] LABS: Free T4 (Free Thyroxine) 0.97 ng/dL (0.71-1.85); Thyroid Stimulating Hormone 2.29 uIU/mL (0.32-4.0); Vitamin D 25-OH Total 40.8 ng/mL (>30)
== END 2024-10-02 07:23 | disposition home or self-care (01) ==
LOC: HO.LAB 07:22
PROVIDERS: PCP Internal Medicine; Visit Provider Internal Medicine
DX: Z00.00 Encounter for general adult medical examination without abnormal findings (principal); E78.00 Pure hypercholesterolemia, unspecified; E03.9 Hypothyroidism, unspecified; E55.9 Vitamin D deficiency, unspecified; R73.01 Impaired fasting glucose; D64.9 Anemia, unspecified; R30.0 Dysuria
CPT/HCPCS: 36415; 80053; 80061; 81001; 82306; 83036; 84439; 84443; 85025; 87086

== ENCOUNTER 2024-12-04 07:06 | Outpatient (REF) | payer MEDICARE, OTHER, SELFPAY ==
[2024-12-04 09:07] LABS: Appearance Urine Clear; Color Urine Dark Yellow; Glucose Urine UA Negative (Negative); Leukocyte Esterase Urine Large (3+) (Negative); Nitrite Urine Negative (Negative); PH 5.5 (5.0-9.0); UMIC TRIGGER UACC YES; Urine Blood Negative (Negative); Urine Ketones Trace mg/dL (Negative); Urine Protein Negative (Neg-Trace)
[2024-12-04 09:25] LABS: Bacteria Urine None Seen (None Seen); Hyaline Casts Urine 0-2 /LPF (0-2); RBC Urine 0-2 /HPF (0-2); UACC Culture Trigger YES
== END 2024-12-04 07:07 | disposition home or self-care (01) ==
LOC: HO.LAB 07:06
PROVIDERS: PCP Internal Medicine; Visit Provider Internal Medicine
DX: Z00.00 Encounter for general adult medical examination without abnormal findings (principal); R30.0 Dysuria
CPT/HCPCS: 81001; 87086

== ENCOUNTER 2024-12-14 13:41 | Outpatient (AMB) | payer MEDICARE, OTHER, SELFPAY ==
[2024-12-14 13:52] VITALS: BP 128/74; PULSE 78; O2SAT 97; BMI 31.7
--- NOTE | 2024-12-14 13:52 | A.OFFPC_ITS ---
Vital Signs 12/14/24 13:52 Height 5 ft 7 in Weight 202 lb 8 oz BMI 31.7 BP 128/74 Blood Pressure Location Lt brachial Position Sitting Pulse 78 Pulse Source Pulse Oximeter Pulse Oximetry (%) 97 Oxygen Delivery Method Room Air Intake Visit Reasons: Annual Exam Negative Cutter Required: No Accompanied by: Self / Same As Patient Allergies cortisone Allergy (Mild, Verified 12/14/24 14:11) swelling adhesive Allergy (Verified 12/14/24 14:11) Redness of Skin apple Allergy (Verified 12/14/24 14:11) Unknown carrot Allergy (Verified 12/14/24 14:11) Unknown angelo [cherries] Allergy (Verified 12/14/24 14:11) Unknown codeine Adverse Reaction (Severe, Verified 12/14/24 14:11) mental status change, dizziness, fuzzy gabapentin [Neurontin] Adverse Reaction (Severe, Verified 12/14/24 14:11) mental status changes tramadol Adverse Reaction (Severe, Verified 12/14/24 14:11) mental status change, dizziness, fuzzy Medication List - Last Reconciled 12/14/24 by Eldon Mena MD acetaminophen 650 mg (2 x 325 mg) PO Q6H PRN 42 days albuterol sulfate 90 mcg/actuation 2 puffs inhalation Q6H PRN ezetimibe-simvastatin 10-20 mg 1 tab PO DAILY levothyroxine 112 mcg PO QAM 90 days lisinopril 10 mg PO DAILY loratadine (Allergy Relief (loratadine)) 10 mg PO DAILY PRN multivitamin with iron-mineral 2 tabs PO DAILY Tobacco use date assessed: 12/14/24 Fall risk assessment: No Falls in past year Last assessed Fall Risk: 12/14/24 Dental Screening Dental Screen Date: 12/14/24 Did you have a dental visit in the last 12 months?: Yes Did you have a dental problem in the last 6 months where you did not have access to dental care?: No Was dental information given to patient?: Patient has dentist HPI Annual Exam HPI Details Patient comes in today for her annual physical examination States that she feels okay She denies any headaches or dizziness Denies any chest pains, no SOB No nausea/vomiting, no abdominal pain No change in bowel habits noted Denies any acute urinary symptoms She had her follow up labs done a few months ago in September 2024 - to discuss her results She has her annual mammogram scheduled for May 2025 She had her screening colonoscopy done back in 2014 and she is now due for repeat colonoscopy - referral to Dr. Mullins placed She no longer has to keep up with yearly gynecology exam and pap smears as she's had a complete hysterectomy years ago [facility] [place] Medical History Osteoarthritis of left hip COVID-19 Basal cell carcinoma GERD (gastroesophageal reflux disease) Sleep apnea History of TIA (transient ischemic attack) Obesity (BMI 30-39.9) Allergic rhinitis Nocturnal hypoxemia Lumbar degenerative disc disease Arthritis of sacroiliac joint Degenerative joint disease of left knee Asthma Aime's thyroiditis Hypothyroidism Pure hypercholesterolemia Benign essential hypertension Surgical History History of arthroplasty of left knee (~05/20/23) History of colonoscopy (~12/26/14) History of cholecystectomy History of excision of lesion History of total abdominal hysterectomy History of removal of cyst History of extraction of renal calculus History of tonsillectomy H/O knee surgery Family History Father No problems noted. Mother Stroke Hypertension CVD (cardiovascular disease) Diabetes mellitus Cancer Social History Household Members: Spouse Housing: Apartment Are you a primary after school caregiver to a significant other at home: No Do you presently have visiting nurse or other home services: No Alcohol intake: current Alcohol intake frequency: holidays/special occasions only Patient Tobacco Use Status: Never used Tobacco e-Cigarette/Vaping Use: Never Used Second Hand Smoke Exposure: Yes service: No Current occupational status: retired Cognitive needs: No Hearing needs: No Vision needs: Yes (Glasses) Questionnaire PHQ-9 Over the last 2 weeks, how often have you been bothered by any of the following problems? 1. Little interest or pleasure in doing things: not at all 2. Feeling down, depressed, or hopeless: not at all 3. Trouble falling or staying asleep, or sleeping too much: not at all 4. Feeling tired or having little energy: not at all 5. Poor appetite or overeating: not at all 6. Feeling bad about yourself - or that you are a failure or have let yourself or your family down: not at all 7. Trouble concentrating on things, such as reading the newspaper or watching television: not at all 8. Moving or speaking so slowly that other people could have noticed. Or the opposite - being so fidgety or restless that you have been moving around a lot more than usual: not at all 9. Thoughts that you would be better off or of hurting yourself in some way: not at all Total score: 0 Depression Screening Interpretation: Negative Depression Screening Done: Yes 91661 - PHQ-9 Billing: Yes Source: Developed by Drs. Major Huertas, Alayna Jordan, Harry Monge and colleagues, with an educational halina from [employer]. Thrive Questionnaire Date Thrive assessed: 12/14/24 I am a: Patient What is your living situation today?: I choose not to answer this question Within the past 12 months, did the food you bought not last and you didn't have the money to get more?: I choose not to answer this question Within the past 12 months, did you worry whether your food would run out before you got money to buy more?: I choose not to answer this question Do you have trouble paying for medicines?: No Do you have trouble getting transportation to medical appointments?: No Do you have trouble paying your heating and electricity bill?: No Do you have trouble taking care of your child, family member or friend?: No Do you have trouble with day-to-day activities such as bathing, preparing meals, shopping, managing finances, etc.?: No Are you currently unemployed and looking for a job?: No Are you interested in more education?: No Please select the resources that you would like help with: None Currently or been in a relationship where the following occur: No concerns reported THRIVE Score: 0 AUDIT C Alcohol Use Questionnaire (AUDIT-C) 1. How often do you have a drink containing alcohol?: Monthly or less 2. How many drinks containing alcohol do you have on a typical day when you are drinking?: 1 or 2 3. How often do you have six or more drinks on one occasion?: Never Total Score: 1 Score Reviewed/Action Taken: Yes ALISA-7 AMB Questionnaire ALISA-7 Date ALISA - 7 assessed: 12/14/24 Feeling nervous, anxious, or on edge: 0 = Not at all Not being able to stop or control worryin = Not at all Worrying too much about different things: 0 = Not at all Trouble relaxin = Not at all Being so restless that it is hard to sit still: 0 = Not at all Becoming easily annoyed or irritable: 0 = Not at all Source: Developed by Drs. Major Huertas, Alayna Jordan, Harry Monge and colleagues, with an educational halina from [employer]. Review of Systems Const Denies chills, Denies fatigue, Denies fever(s), Denies headache(s) and Denies malaise Eyes Denies blurry vision, Denies change in vision, Denies irritation and Denies itchy eyes ENT Denies dysphagia, Denies dizziness, Denies otalgia, Denies headache(s), Denies nasal congestion, Denies neck pain, Denies odynophagia, Denies sinus pain and Denies sore throat Card Denies chest pain, Denies rapid heart rate, Denies irregular heart rhythm, Denies palpitations and Denies dyspnea Resp Denies chest congestion, Denies cough, Denies dyspnea and Denies wheezing GI Denies abdominal pain, Denies bloating, Denies constipation, Denies dysphagia, Denies heartburn, Denies diarrhea, Denies nausea, Denies odynophagia and Denies vomiting Denies hematuria, Denies urinary frequency, Denies dysuria, Denies urinary incontinence and Denies urinary urgency Musc Denies back pain, Denies arthralgias, Denies joint swelling, Denies muscle weakness and Denies neck pain Skin/Breast Denies breast pain, Denies breast mass, Denies change in pigmentation, Denies lesions, Denies rash and Denies unusual bruising Neuro Denies dizziness, Denies headache(s) and Denies paresthesias Psych Denies anxiety and Denies depression Endo Denies fatigue and Denies palpitations Ramakrishna/Lymph Denies easy bruising Aller/Immun Denies itchy eyes and Denies wheezing Physical exam (Primary Care) Vital Signs: Last Vital Signs Pulse 78 12/14/24 13:52 BP 128/74 12/14/24 13:52 Pulse Ox 97 12/14/24 13:52 Oxygen Delivery Method Room Air 12/14/24 13:52 BMI result Body Mass Index 31.7 Tobacco/Smoking Status: Tobacco use Status Tobacco use date assessed 12/14/24 12/14/24 14:00 Patient Tobacco Use Status Never used Tobacco 12/14/24 14:00 e-Cigarette/Vaping Use Never Used 12/14/24 14:00 PHQ-9: PHQ-9 Score PHQ-9: Total score 0 12/14/24 14:00 Depression Screening Interpretation: Negative Thrive Assessment: Date of Thrive Assessment Date Thrive assessed 12/14/24 12/14/24 14:00 Currently or been in a relationship where the following occur: No concerns reported Results Reviewed Results Reviewed: Laboratory Tests 10/02/24 12/04/24 07:43 07:18 WBC 4.5 L Hgb 15.1 Hct 43.6 Plt Count 207 Sodium 140 Potassium 4.6 Creatinine 0.70 Estimated GFR > 60 Fasting Glucose 108 H Hemoglobin A1c % 5.9 Calcium 9.3 AST 30 ALT 35 H Triglycerides 65 Cholesterol 140 LDL Cholesterol, Calc 76 HDL Cholesterol 51 25-OH Vitamin D Total 40.8 TSH 2.29 Free T4 0.97 Ur Specific [place] 1.020 Urine Protein Negative Urine Glucose (UA) Negative Urine Blood Negative Urine Nitrite Negative Ur Leukocyte Esterase Large (3+) H Coding Level of Care Code Est Pt Prev Care >65y(99423) Diagnoses Annual physical exam Z00.00 Pure hypercholesterolemia E78.00 Benign essential hypertension I10 Hypothyroidism due to Aime's thyroiditis E03.8; E06.3 Hypothyroidism type: due to Aime's thyroiditis Aime's thyroiditis E06.3 Chronic hoarseness R49.0 Impaired fasting glucose R73.01 Moderate persistent asthma without complication J45.40 Asthma severity: moderate Asthma persistence: persistent Asthma complication type: uncomplicated Nocturnal hypoxemia G47.34 Neuropathy G62.9 Elevated LFTs R79.89 Allergic rhinitis, unspecified seasonality, unspecified trigger J30.9 Allergic rhinitis trigger: unspecified Allergic rhinitis seasonality: unspecified Primary osteoarthritis of left knee M17.12 Osteoarthritis type: primary Degeneration of intervertebral disc of lumbar region with discogenic back pain M51.360 Disc-related pain type: discogenic back pain only Arthritis of sacroiliac joint M47.818 Obesity (BMI 30-39.9) E66.9 Colon cancer screening Z12.11 Osteoporosis screening Z13.820 Additional Codes PHQ-9 - 80949 - PHQ-9 Billing: Yes ([id number]) Assessment & Plan Assessment & Plan (1) Annual physical exam: Code(s): Z00.00 - Encounter for general adult medical examination without abnormal findings Category: Medical Plan: Results of her labs done a few months ago reviewed and discussed with patient She is scheduled for her annual mammogram in May 2025 She had her screening colonoscopy done back in 2014 and she is now due for repeat colonoscopy - referral to Dr. Mullins placed She no longer has to keep up with yearly gynecology exam and pap smears as she's had a complete hysterectomy years ago (2) Pure hypercholesterolemia: Code(s): E78.00 - Pure hypercholesterolemia, unspecified Category: Medical Plan: Reinforced low cholesterol diet Continue Ezetimibe-Simvastatin 10-20 mg (Vytorin) QD Will recheck her labs and fasting lipids in 4 months for follow-up (3) Benign essential hypertension: Code(s): I10 - Essential (primary) hypertension Category: Medical Plan: Reinforced low sodium diet - goal is systolic BP of at least 130 mm or less Continue Lisinopril 10 mg QD Patient is reminded to continue monitoring her blood pressure regularly (4) Hypothyroidism: Code(s): E03.9 - Hypothyroidism, unspecified Category: Medical Qualifiers: Hypothyroidism type: due to Aime's thyroiditis Qualified Code(s): E03.8 - Other specified hypothyroidism; E06.3 - Autoimmune thyroiditis Plan: Her TFTs remained normal on her labs done a few months ago Continue Levothyroxine 112 mcg QD Will recheck her TFTs in 4 months for follow up (5) Aime's thyroiditis: Code(s): E06.3 - Autoimmune thyroiditis Category: Medical Plan: Will continue to monitor her TFTs regularly Follow-up with endocrinology as scheduled (6) Chronic hoarseness: Code(s): R49.0 - Dysphonia Category: Medical Plan: This is most likely due to her unilateral vocal cord paralysis She was referred to ENT for further evaluation and management previously and has been advised that especially since she has no trouble swallowing or breathing, there is not much that can be done in terms of intervention for her condition (7) Impaired fasting glucose: Code(s): R73.01 - Impaired fasting glucose Category: Medical Plan: Her HgbA1c was at 5.9% on her labs done a few months ago; was previously at 6.0% late last year Reinforced low calorie diet /exercise as tolerated Will recheck her FBS and HgbA1c in 4 months for follow up (8) Asthma: Code(s): J45.909 - Unspecified asthma, uncomplicated Category: Medical Qualifiers: Asthma severity: moderate Asthma persistence: persistent Asthma complication type: uncomplicated Qualified Code(s): J45.40 - Moderate persistent asthma, uncomplicated Plan: Her PFTs done back in July 2022 revealed findings consistent with asthma - patient states that her respiratory symptoms have been mostly mild and only bother her occasionally and only with increased exertion Continue Albuterol HFA 1 to 2 inhalations PRN (9) Nocturnal hypoxemia: Code(s): G47.34 - Idiopathic sleep related nonobstructive alveolar hypoventilation Category: Medical Plan: Patient has not had to use her oxygen when sleeping at night for years now and states that she has not had any problems without it so far She has been advised that this may actually be partially related to her unilateral vocal cord paralysis (10) Neuropathy: Code(s): G62.9 - Polyneuropathy, unspecified Category: Medical Plan: Have advised patient previously that her recent lower extremity / feet symptoms are most likely neuropathic symptoms (pain) She is wondering if they may be related to her CVA/TIA that she had back in 2007 - recalls that she was advised by neurology (Dr. Leary) that she may have MS although she was never formally tested for or diagnosed with MS Have advised patient that MS at the time (based on her symptoms and brain MRI findings) is just one possibility and that does not necessarily mean that she has MS Patient states that her lower extremity symptoms have remained mostly tolerable and she prefers not to take any more Rx at this time but she is advised that if her symptoms progress to a point where she is unable to sleep well at night, then the Rx can help - states that she will call when they get worse For now, we will go ahead and get her tested further for this - will send her for EMG & NCV for further evaluation (11) Elevated LFTs: Code(s): R79.89 - Other specified abnormal findings of blood chemistry Category: Medical Plan: Improved; these were most likely due to fatty liver changes related to her weight Her LFTs have remained normal on her recent labs Will continue to monitor her LFTs regularly (12) Allergic rhinitis: Code(s): J30.9 - Allergic rhinitis, unspecified Category: Medical Qualifiers: Allergic rhinitis trigger: unspecified Allergic rhinitis seasonality: unspecified Qualified Code(s): J30.9 - Allergic rhinitis, unspecified Plan: Continue OTC Loratadine 10 mg daily PRN (13) Degenerative joint disease of left knee: Code(s): M17.12 - Unilateral primary osteoarthritis, left knee Category: Medical Qualifiers: Osteoarthritis type: primary Qualified Code(s): M17.12 - Unilateral primary osteoarthritis, left knee Plan: S/P total left knee arthroplasty with Dr. Sparks back on 05/20/2023 She completed physical therapy/rehab and is currently doing well and is back to normal daily activities with no significant restrictions Follow up with orthopedics as scheduled or as needed (14) Lumbar degenerative disc disease: Code(s): M51.36 - Other intervertebral disc degeneration, lumbar region Category: Medical Qualifiers: Disc-related pain type: discogenic back pain only Qualified Code(s): M 51.360 - Other intervertebral disc degeneration, lumbar region with discogenic back pain only Plan: Reinforced activity and weight lifting restrictions to minimize her back symptoms (15) Arthritis of sacroiliac joint: Code(s): M47.818 - Spondylosis without myelopathy or radiculopathy, sacral and sacrococcygeal region Category: Medical Plan: Continue Tizanidine 4 mg every 8 hours PRN (16) Obesity (BMI 30-39.9): Code(s): E66.9 - Obesity, unspecified Category: Medical Plan: Reinforced diet/exercise as tolerated /lose weight (17) Colon cancer screening: Code(s): Z12.11 - Encounter for screening for malignant neoplasm of colon Category: Medical Plan: She is now due for repeat colonoscopy and will refer her back to Dr. Mullins for repeat colonoscopy (18) Osteoporosis screening: Code(s): Z13.820 - Encounter for screening for osteoporosis Category: Medical Plan: Will also send her for BMD for osteoporosis screening - this will be her index screen Plan Follow up in 4 months Orders: Orders NE electromyogram (EMG) Today G62.9 - Polyneuropathy, unspecified NE nerve conduction velocity Today G62.9 - Polyneuropathy, unspecified Comprehensive [place]. Panel Fast 4 Months E78.00 - Pure hypercholesterolemia, unspecified Microalbumin, Random (w Creat) 4 Months E11.9 - Type 2 diabetes mellitus wi thout complications Vitamin B12 and Folate 4 Months E53.8 - Deficiency of other specified B group vitamins XR DEXA axial skeleton Today Z78.0 - Asymptomatic menopausal state Complete Blood Count Auto Diff 4 Months D64.9 - Anemia, unspecified Lipid Panel 4 Months E78.00 - Pure hypercholesterolemia, unspecified Hemoglobin A1c 4 Months E11.9 - Type 2 diabetes mellitus without complications Free T4 (Free Thyroxine) 4 Months E03.9 - Hypothyroidism, unspecified Thyroid Stimulating Hormone 4 Months E03.9 - Hypothyroidism, unspecified UA CC w/rflx Micro + Cult 4 Months R30.0 - Dysuria Vitamin D 25-OH Total 4 Months E55.9 - Vitamin D deficiency, unspecified Referrals Gastroenterology Referral Z12.11 - Encounter for screening for malignant neoplasm of colon
== END 2024-12-14 14:48 | disposition home or self-care (01) ==
LOC: HO.HMCH 13:42
PROVIDERS: PCP Internal Medicine; Visit Provider Internal Medicine
DX: Z00.00 Encounter for general adult medical examination without abnormal findings (principal); E78.00 Pure hypercholesterolemia, unspecified; I10 Essential (primary) hypertension; E03.8 Other specified hypothyroidism; E06.3 Autoimmune thyroiditis; R49.0 Dysphonia; R73.01 Impaired fasting glucose; J45.40 Moderate persistent asthma, uncomplicated; G47.34 Idiopathic sleep related nonobstructive alveolar hypoventilation; G62.9 Polyneuropathy, unspecified; R79.89 Other specified abnormal findings of blood chemistry; J30.9 Allergic rhinitis, unspecified

== ENCOUNTER → 2024-12-14 13:41 | Outpatient (BNVA) | payer MEDICARE, OTHER, SELFPAY | PROVIDERS: PCP Internal Medicine; Visit Provider Internal Medicine | DX: Z00.00 Encounter for general adult medical examination without abnormal findings (principal); E78.00 Pure hypercholesterolemia, unspecified; E03.8 Other specified hypothyroidism; E06.3 Autoimmune thyroiditis; R49.0 Dysphonia; J45.40 Moderate persistent asthma, uncomplicated; I10 Essential (primary) hypertension; G47.34 Idiopathic sleep related nonobstructive alveolar hypoventilation; G62.9 Polyneuropathy, unspecified; R79.89 Other specified abnormal findings of blood chemistry; J30.9 Allergic rhinitis, unspecified; M17.12 Unilateral primary osteoarthritis, left knee; M51.360 Other intervertebral disc degeneration, lumbar region with discogenic back pain only; M47.818 Spondylosis without myelopathy or radiculopathy, sacral and sacrococcygeal region; E66.9 Obesity, unspecified; Z68.31 Body mass index [BMI] 31.0-31.9, adult; Z71.3 Dietary counseling and surveillance | CPT/HCPCS: 96127; 99397 ==

== ENCOUNTER 2024-12-28 09:42 | Outpatient (REF) | payer MEDICARE, OTHER, SELFPAY ==
--- NOTE | 2024-12-28 09:45 | EMG_ITS ---
Bilateral tibial and peroneal motor studies were performed. Bilateral superficial peroneal and sural sensory studies were performed tibial H reflexes were obtained and paraspinal muscles were tested with a needle. 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 MD KIM Capellan/NAVIN / [phone]
== END 2024-12-28 09:43 | disposition home or self-care (01) ==
LOC: HO.NEURO 09:42
PROVIDERS: PCP Internal Medicine; Visit Provider Internal Medicine
DX: G62.9 Polyneuropathy, unspecified (principal); M79.672 Pain in left foot; M79.671 Pain in right foot; R09.89 Other specified symptoms and signs involving the circulatory and respiratory systems
CPT/HCPCS: 95886; 95911

== ENCOUNTER 2025-01-21 10:15 | Outpatient (AMB) | payer MEDICARE, OTHER, SELFPAY ==
[2025-01-21 10:15] VITALS: BP 142/76; PULSE 68; TEMP 36.5; O2SAT 96; BMI 31.8
--- NOTE | 2025-01-21 10:15 | MHC.OFFWIV ---
Intake Vital Signs 01/21/25 10:15 Height 5 ft 7 in Weight 203 lb 2 oz BMI 31.8 BP 142/76 H Blood Pressure Location Lt brachial Position Sitting Pulse 68 Pulse Source Pulse Oximeter Temp 97.7 F Temp Source Oral Pulse Oximetry (%) 96 Oxygen Delivery Method Room Air Intake Visit Reasons: EP irritation on lt ear, blocked Intake Note: Pt presents to the office today for c/o left ear swelling,redness,and popping that comes and goes. Pt states this all started in November while she was on a plane. Patient Tobacco Use Status: Never used Tobacco Allergies cortisone Allergy (Mild, Verified 01/21/25 10:16) swelling adhesive Allergy (Verified 01/21/25 10:16) Redness of Skin apple Allergy (Verified 01/21/25 10:16) Unknown carrot Allergy (Verified 01/21/25 10:16) Unknown angelo [cherries] Allergy (Verified 01/21/25 10:16) Unknown codeine Adverse Reaction (Severe, Verified 01/21/25 10:16) mental status change, dizziness, fuzzy gabapentin [Neurontin] Adverse Reaction (Severe, Verified 01/21/25 10:16) mental status changes tramadol Adverse Reaction (Severe, Verified 01/21/25 10:16) mental status change, dizziness, fuzzy HPI HPI Comments History of Present Illness Details This is a 69-year-old female presenting for evaluation of left ear blockage. Patient states that her symptoms started in November when she was flying on an airplane she noted that her left ear was popping intermittently. Since that time she has had intermittent ?blockage? of her left ear with decreased hearing. Patient states that today she feels that her external ear is burning in her left ear continues to feel blocked. Patient denies having any fevers, chills, discharge from her left ear, sore throat or lightheadedness. [facility] Medical History Osteoarthritis of left hip COVID-19 Basal cell carcinoma GERD (gastroesophageal reflux disease) Sleep apnea History of TIA (transient ischemic attack) Obesity (BMI 30-39.9) Allergic rhinitis Nocturnal hypoxemia Lumbar degenerative disc disease Arthritis of sacroiliac joint Degenerative joint disease of left knee Asthma Aime's thyroiditis Hypothyroidism Pure hypercholesterolemia Benign essential hypertension Surgical History History of arthroplasty of left knee (~05/20/23) History of colonoscopy (~12/26/14) History of cholecystectomy History of excision of lesion History of total abdominal hysterectomy History of removal of cyst History of extraction of renal calculus History of tonsillectomy H/O knee surgery Family History Father No problems noted. Mother Stroke Hypertension CVD (cardiovascular disease) Diabetes mellitus Cancer Social History Household Members: Spouse Housing: Apartment Are you a primary critical care transport nurse to a significant other at home: No Do you presently have visiting nurse or other home services: No Alcohol intake: current Alcohol intake frequency: holidays/special occasions only Patient Tobacco Use Status: Never used Tobacco e-Cigarette/Vaping Use: Never Used Second Hand Smoke Exposure: Yes service: No Current occupational status: retired Cognitive needs: No Hearing needs: No Vision needs: Yes (Glasses) Review of Systems Const All systems reviewed & are unremarkable except as noted in HPI and below Eyes Reports no additional complaints ENT Denies ear discharge, Reports otalgia (left external ear) and Denies disequilibrium Card Reports no additional complaints Resp Reports no additional complaints GI Reports no additional complaints Reports no additional complaints Musc Reports no additional complaints Skin/Breast Reports system reviewed and no additional complaints, except as documented Neuro Reports no additional complaints and Denies disequilibrium Psych Reports no additional complaints Endo Reports no additional complaints Ramakrishna/Lymph Reports no additional complaints Aller/Immun Reports no additional complaints Physical Exam Vital Signs: Last Vital Signs Temp 97.7 F 01/21/25 10:15 Pulse 68 01/21/25 10:15 BP 142/76 H 01/21/25 10:15 Pulse Ox 96 01/21/25 10:15 Oxygen Delivery Method Room Air 01/21/25 10:15 BMI result Body Mass Index 31.8 Const General: cooperative, healthy appearing, comfortable, no acute distress, well developed, alert, awake, Physically active and acute distress Nutritional Appearance: well nourished Orientation/consciousness: patient oriented x3 Limitations: no limitations HEENT Head: Yes normal to inspection and Yes normocephalic Ears: external ears abnormal (L. external ear with edema and erythema ), TM normal on the right, left TM abnormal (TM bulging, no erythema, no otitis externa or otitis media) and EAC's normal Eyes General: appearance normal, both eyes and all related structures Neck Lymphatic: no lymphadenopathy noted Neuro General: patient oriented x3 Psych Appearance: grossly normal Mental Status: mental status grossly normal Insight: Good insight present (Psych) Judgement: Good judgement present (Psych) Assessment & Plan Assessment & Plan (1) Cellulitis of left external ear: Comment: Patient denies having any fevers, chills and is well-appearing. Patient will be discharged home with oral antibiotic therapy. Code(s): H60.12 - Cellulitis of left external ear Plan: Keflex 500 mg t.i.d. x7 days. (2) Eustachian tube dysfunction: Comment: There is no evidence of an otitis media or otitis externa. Patient will be discharged home with fluticasone. Code(s): H69.90 - Unspecified Eustachian tube disorder, unspecified ear Qualifiers: Laterality: left Qualified Code(s): H69.92 - Unspecified Eustachian tube disorder, left ear Plan: Fluticasone nasal spray 1 spray each nostril once daily; follow-up as needed. Coding Level of Care Code Est Pt Level 3 (96237) Diagnoses Cellulitis of left external ear H60.12 Dysfunction of left eustachian tube H69.92 Laterality: left Time Spent (min) 20
== END 2025-01-21 10:46 | disposition home or self-care (01) ==
PROVIDERS: PCP Internal Medicine; Visit Provider Physician Assistant
DX: H60.12 Cellulitis of left external ear (principal); H69.92 Unspecified Eustachian tube disorder, left ear

== ENCOUNTER → 2025-01-21 10:15 | Outpatient (BNVA) | payer MEDICARE, OTHER, SELFPAY | PROVIDERS: PCP Internal Medicine; Visit Provider Physician Assistant | DX: H60.12 Cellulitis of left external ear (principal); H69.92 Unspecified Eustachian tube disorder, left ear | CPT/HCPCS: 99212 ==

== ENCOUNTER 2025-01-28 15:44 | Outpatient (AMB) | payer MEDICARE, OTHER, SELFPAY ==
--- NOTE | 2025-01-28 15:49 | MHC.PC.OV ---
Vital Signs 01/28/25 15:51 Height 5 ft 7 in Weight 201 lb 6 oz BMI 31.5 BP 130/80 Blood Pressure Location Lt brachial Position Sitting Pulse 70 Pulse Source Pulse Oximeter Temp 97.1 F Temp Source Temporal Artery Scan Pulse Oximetry (%) 97 Oxygen Delivery Method Room Air Intake Visit Reasons: ear pain Intake Note: Patient is here to follow up on Left Ear pain. Correctional Treatment Specialist Required: No Subscription Clerk: Not Required per policy Accompanied by: Self / Same As Patient Allergies cortisone Allergy (Mild, Verified 01/28/25 15:59) swelling adhesive Allergy (Verified 01/28/25 15:59) Redness of Skin apple Allergy (Verified 01/28/25 15:59) Unknown carrot Allergy (Verified 01/28/25 15:59) Unknown angelo (cherries) Allergy (Verified 01/28/25 15:59) Unknown codeine Adverse Reaction (Severe, Verified 01/28/25 15:59) mental status change, dizziness, fuzzy gabapentin (Neurontin) Adverse Reaction (Severe, Verified 01/28/25 15:59) mental status changes tramadol Adverse Reaction (Severe, Verified 01/28/25 15:59) mental status change, dizziness, fuzzy Medication List - Last Reconciled 01/28/25 by Jacey Espinosa PA-C acetaminophen 650 mg (2 x 325 mg) PO Q6H PRN 42 days albuterol sulfate 90 mcg/actuation 2 puffs inhalation Q6H PRN cephalexin 500 mg PO Q8H 7 days ezetimibe-simvastatin 10-20 mg 1 tab PO DAILY levothyroxine 112 mcg PO QAM 90 days lisinopril 10 mg PO DAILY loratadine (Allergy Relief (loratadine)) 10 mg PO DAILY PRN multivitamin with iron-mineral 2 tabs PO DAILY Tobacco use date assessed: 01/28/25 Fall risk assessment: No Falls in past year Last assessed Fall Risk: 01/28/25 Dental Screening Dental Screen Date: 12/14/24 HPI ear pain HPI Details 69-year-old female with a past medical history of hypertension, hypercholesterolemia, hypothyroid, asthma, impaired glucose tolerance, obesity last seen by Dr. Mena 12/2024 coming in for acute problem. In review of the notes, patient was seen in walk-in clinic 01/21/2025 diagnosed with cellulitis and given Keflex 500 mg t.i.d. size 7 days. Presenting with ear blockage and swelling. Reports ear blockage lasting from five minutes to three hours, with initial swelling and discoloration of the right ear. Allergic to cortisone, experienced a delay in starting antibiotics due to prescription issues. Diagnosed with sinus infection and outer ear infection, currently on antibiotics and Rama for allergic rhinitis. Uses loratadine daily for allergies; ear blockage noted since a flight in November, persisting intermittently. [facility] Medical History Osteoarthritis of left hip COVID-19 Basal cell carcinoma GERD (gastroesophageal reflux disease) Sleep apnea History of TIA (transient ischemic attack) Obesity (BMI 30-39.9) Allergic rhinitis Nocturnal hypoxemia Lumbar degenerative disc disease Arthritis of sacroiliac joint Degenerative joint disease of left knee Asthma Aime's thyroiditis Hypothyroidism Pure hypercholesterolemia Benign essential hypertension Surgical History History of arthroplasty of left knee (~05/20/23) History of colonoscopy (~12/26/14) History of cholecystectomy History of excision of lesion History of total abdominal hysterectomy History of removal of cyst History of extraction of renal calculus History of tonsillectomy H/O knee surgery Family History Father No problems noted. Mother Stroke Hypertension CVD (cardiovascular disease) Diabetes mellitus Cancer Social History Household Members: Spouse Housing: Apartment Are you a primary field care coordinator to a significant other at home: No Do you presently have visiting nurse or other home services: No Alcohol intake: current Alcohol intake frequency: holidays/special occasions only Patient Tobacco Use Status: Never used Tobacco e-Cigarette/Vaping Use: Never Used Second Hand Smoke Exposure: No service: No Current occupational status: retired Cognitive needs: No Hearing needs: No Vision needs: Yes (Glasses) Questionnaire Thrive Questionnaire Date Thrive assessed: 12/14/24 I am a: Patient What is your living situation today?: I choose not to answer this question Within the past 12 months, did the food you bought not last and you didn't have the money to get more?: I choose not to answer this question Within the past 12 months, did you worry whether your food would run out before you got money to buy more?: I choose not to answer this question Do you have trouble paying for medicines?: No Do you have trouble getting transportation to medical appointments?: No Do you have trouble paying your heating and electricity bill?: No Do you have trouble taking care of your child, family member or friend?: No Do you have trouble with day-to-day activities such as bathing, preparing meals, shopping, managing finances, etc.?: No Are you currently unemployed and looking for a job?: No Are you interested in more education?: No Please select the resources that you would like help with: None Currently or been in a relationship where the following occur: No concerns reported THRIVE Score: 0 ALISA-7 AMB Questionnaire ALISA-7 Date ALISA - 7 assessed: 12/14/24 Feeling afraid as if something awful might happen: 0 = Not at all Source: Developed by Drs. Major Huertas, Alayna Jordan, Harry Monge and colleagues, with an educational halina from [employer]. Review of Systems Const Denies body aches, Denies chills and Denies fever(s) Eyes Reports no additional complaints ENT Details: Ear popping sensation in the left side without pain Card Denies chest pain and Denies dyspnea Resp Denies dyspnea GI Reports no additional complaints Skin/Breast Reports system reviewed and no additional complaints, except as documented Physical exam (Primary Care) Vital Signs: Last Vital Signs Temp 97.1 F 01/28/25 15:51 Pulse 70 01/28/25 15:51 BP 130/80 01/28/25 15:51 Pulse Ox 97 01/28/25 15:51 Oxygen Delivery Method Room Air 01/28/25 15:51 BMI result Body Mass Index 31.5 Tobacco/Smoking Status: Tobacco use Status Tobacco use date assessed 01/28/25 01/28/25 15:55 Patient Tobacco Use Status Never used Tobacco 01/28/25 15:55 e-Cigarette/Vaping Use Never Used 01/28/25 15:55 Thrive Assessment: Date of Thrive Assessment Date Thrive assessed 12/14/24 01/28/25 15:55 Currently or been in a relationship where the following occur: No concerns reported Const General: cooperative, healthy appearing, comfortable and no acute distress Orientation/consciousness: patient oriented x3 HENMT Other: No tenderness to palpation over mastoid area no tenderness to palpation of bilateral pinna. There is no erythema, swelling or warmth of the left pinna Head: Yes normocephalic Ears: hearing grossly normal bilaterally, external ears normal, TM's normal bilaterally and Abnormal EAC present edema on the left General nose exam: Normal external nose present Eyes General: appearance normal, both eyes and all related structures Conjunctivae: conjunctivae normal Neck Neck: Yes full ROM and Yes no lymphadenopathy Resp Effort & Inspection: normal respiratory effort Cardio Rate: regular rate Rhythm: regular rhythm Skin General skin exam: no rashes or lesions noted Neuro General: patient oriented x3 Gait exam (Neuro): Normal gait present Extrem General: Yes normal to inspection, Yes full ROM and No edema Psych Affect: normal affect Attitude: cooperative Insight: Good insight present (Psych) Judgement: Good judgement present (Psych) Coding Level of Care Code Est Pt Level 3 (27926) Diagnoses Dysfunction of left eustachian tube H69.92 Laterality: left Allergic rhinitis, unspecified seasonality, unspecified trigger J30.9 Allergic rhinitis trigger: unspecified Allergic rhinitis seasonality: unspecified Assessment & Plan Assessment & Plan (1) Eustachian tube dysfunction: Comment: There is no evidence of an otitis media or otitis externa. Patient will be discharged home with fluticasone. Code(s): H69.90 - Unspecified Eustachian tube disorder, unspecified ear Category: Medical Qualifiers: Laterality: left Qualified Code(s): H69.92 - Unspecified Eustachian tube disorder, left ear Plan: The patient will continue with the current antibiotic regimen to address the potential skin infection, despite the absence of significant pain or redness, as a precautionary measure. Ear drops without steroids will be prescribed to reduce swelling in the ear canal, and the patient is advised to use saline spray/Azelastine and Sudafed cautiously due to her history of high blood pressure. The patient is encouraged to switch from loratadine to another antihistamine temporarily to assess any improvement in symptoms, and a non-steroidal nasal spray will be provided. (2) Allergic rhinitis: Code(s): J30.9 - Allergic rhinitis, unspecified Category: Medical Qualifiers: Allergic rhinitis trigger: unspecified Allergic rhinitis seasonality: unspecified Qualified Code(s): J30.9 - Allergic rhinitis, unspecified Plan: See above Plan This note was constructed using voice recognition software. While every effort has been made to ensure accuracy and amr physician, still areas may have been included sometimes these areas may affect the content or meeting of the given symptoms. Total time spent caring for the patient today was 20 minutes. This includes time spent before the visit reviewing the chart, time spent during the visit, and time spent after the visit and documentation. Patient was informed and verbally consented to the use of an ambient scribe for clinic note documentation during this visit. Medications: New azelastine administer into each nostril 1 spray intranasal BID 30 mL 0RF ofloxacin 0.3% 10 drps otic (ears) DAILY 5 mL 0RF 7 days
[2025-01-28 15:51] VITALS: BP 130/80; PULSE 70; TEMP 36.2; O2SAT 97; BMI 31.5
== END 2025-01-28 16:32 | disposition home or self-care (01) ==
LOC: HO.HMCH 15:45
PROVIDERS: PCP Internal Medicine
DX: H69.92 Unspecified Eustachian tube disorder, left ear (principal); J30.9 Allergic rhinitis, unspecified

== ENCOUNTER → 2025-01-28 15:44 | Outpatient (BNVA) | payer MEDICARE, OTHER, SELFPAY | PROVIDERS: PCP Internal Medicine | DX: H69.92 Unspecified Eustachian tube disorder, left ear (principal); J30.9 Allergic rhinitis, unspecified | CPT/HCPCS: 99212 ==

== ENCOUNTER 2025-04-29 06:12 | Outpatient (REF) | payer MEDICARE, OTHER, SELFPAY ==
--- OUTSIDE RECORDS SUMMARY | 2025-04-29 06:16 | XMS_ITS | Encounter Summary ---
Author Organization [facility] Address [address] [place] [address] [address] [place] [address] Phone Care Team Providers Care Hand Quilter Name Role Phone Pcp, Unknown Primary Care Provider Unavailabl e Reason for Referral * MRI/CAT Scan - Closed Specialty Diagnoses / Procedures Referred By Katharina franklin Referred To Contact Radiology Diagnoses Sensorineural hearing loss (SNHL) of right ear with restricted hearing of left ear Procedures MRI Brain CHG MRI BRAIN COMBO Major Tamez MD [address], [address] [place] [address] Phone: tel: fax: [email or web address] Referral ID Status Reason Start Date Expiration Date Visits Re quested Visits Authorized [id number] Closed 02/28/2025 04/29/2025 1 1 Encounter Details Date Type Department Care Team (Latest Contact Info) Description 02/28/2025 Transcribe Orders Virtual Department [address] [place] [address] Major Tamez MD [address], [address] [place] [address] [email or web address] Sensorineural hearing loss (SNHL) of right ear with restricted hearing of left ear (Primary Dx) Social History Tobacco Use Types Packs/Day Years Used Date Smoking Tobacco: Never Assessed Comments Unknown Sex and Gender Information Value Date Recorded Sex Assigned at Female 03/21/2025 9:51 AM EDT Legal Sex Female 11:01 AM EDT Gender Identity Female 03/21/2025 9:51 AM EDT Sexual Orientation Straight 03/21/2025 9: 51 AM EDT documented as of this encounter Plan of Treatment Not on file documented as of this encounter Results * MRI BRAIN (INTERNAL AUDITORY CANAL) WITH AND WITHOUT CONTRAST (03/22/2025 7:51 AM EDT) Anatomical Region Laterality Modality Head Magnetic Resonan ce 03/23/2025 10:4 3 AM EDT Impressions 03/23/2025 10:55 AM EDT 1. No retrocochlear abnormality or acute intracranial abnormality. Narrative 03/23/2025 10:55 AM EDT MRI BRAIN (INTERNAL AUDITORY CANAL) WITH AND WITHOUT CONTRAST Referring clinician's provided indication for this examination in [facility]: SENSORINEURAL HEARING LOSS OF RIGHT EAR WITH RESTRICTED HEARING LEFT EAR TECHNIQUE: Multi-sequence, multi-planar MRI of the brain including high resolution images of the temporal bones was performed before and after intravenous contrast. COMPARISON: None available. FINDINGS: Internal Auditory Canals, Cerebellopontine Angles, and Intracranial 7th and 8th Nerve Complexes: Normal. No cerebellopontine angle or internal auditory canal mass. Inner Ear Structures: Normal. Preserved signal in the labyrinth. No MRI evidence for an inner ear anomaly. Brain Parenchyma: No evidence of acute infarct, mass, hemorrhage or abnormal enhancement. There are scattered foci of T2 hyperintensity in the white matter, likely a manifestation of chronic small vessel disease. 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 Ventricular System and Extra-Axial Spaces: The ventricles and cortical sulci are prominent, as commonly seen in patients of this age. No evidence of midline shift or hydrocephalus. Miscellaneous: There are normal flow voids of the major intracranial vessels. The visualized paranasal sinuses appear clear. The mastoid air cells appear clear. The orbits are unremarkable. Procedure Note Matias Lane MD - 03/23/2025 MRI BRAIN (INTERNAL AUDITORY CANAL) WITH AND WITHOUT CONTRAST Referring clinician's provided indication for this examination in [facility]:SENSORINEURAL HEARING LOSS OF RIGHT EAR WITH RESTRICTED HEARING LEFT EAR TECHNIQUE: Multi-sequence, multi-planar MRI of the brain including highresolution images of the temporal bones was performed before and afterintravenous contrast. COMPARISON: None available. FINDINGS: Internal Auditory Canals, Cerebellopontine Angles, and Intracranial 7thand 8th Nerve Complexes: Normal. No cerebellopontine angle or internalauditory canal mass. Inner Ear Structures: Normal. Preserved signal in the labyrinth. No MRIevidence for an inner ear anomaly. Brain Parenchyma: No evidence of acute infarct, mass, hemorrhage orabnormal enhancement. There are scattered foci of T2 hyperintensity in thewhite matter, likely a manifestation of chronic small vessel disease.There is a developmental venous anomaly and the right basal ganglia withassociated susceptibility hypointensity. Ventricular System and Extra-Axial Spaces: The ventricles and corticalsulci are prominent, as commonly seen in patients of this age. No evidenceof midline shift or hydrocephalus. Miscellaneous: There are normal flow voids of the major intracranialvessels. The visualized paranasal sinuses appear clear. The mastoid aircells appear clear. The orbits are unremarkable. IMPRESSION: 1. No retrocochlear abnormality or acute intracranial abnormality. Major Tamez MD [facility] MR HEAD/NECK Final Re sult documented in this encounter Visit Diagnoses Diagnosis Sensorineural hearing loss (SNHL) of right ear with restricted hearing of left ear- Primary Sensorineural hearing loss (SNHL) of right ear with restricted hearing of left ear documented in this encounter Care Teams Hand Quilter Relationship Specialty Start Date End Date Pcp, Unknown PCP - General 03/06/25 documented as of this encounter Additional Source Comments The information contained in this document represents components of the legal health record. It is not the complete legal health record.[facility]
--- OUTSIDE RECORDS SUMMARY | 2025-04-29 06:16 | XMS_ITS | Clinical Summary ---
Author Organization [facility] Address [address] [place] [address] Phone Care Team Providers Care Psychological Operations Officer Name Role Phone Pcp, Unknown Primary Care Provider Unavailabl e Encounters Date Type Department Care Team Description 03/22/2025 6:47 AM EDT - 03/22/2025 11:59 PM EDT Hospital Encounter [address] [address] Major Tamez MD Discharge Disposition: Home or Self Care 02/28/2025 Procedure Pass [address] [address] 02/28/2025 Transcribe Orders Virtual Department [address] [place] [address] Major Tamez MD Sensorineural hearing loss (SNHL) of right ear with restricted hearing of left ear (Primary Dx) from Last 3 Months Social History Tobacco Use Types Packs/Day Years Used Date Smoking Tobacco: Never Assessed Education Answer Date Recorded Are you interested in more education? Not on eddy e 03/06/2025 Are you concerned about learning? Not on file 03/06/2025 No 03/06/2025 No 03/06/2025 Digital Access Answer Date Recorded No 03/06/2025 No 03/06/2025 Reliable internet access at home? Not on file 03/06/2025 Device with a working camera? Not on file Comments Unknown Sex and Gender Information Value Date Recorded Sex Assigned at Female 03/21/2025 9:51 AM EDT Legal Sex Female 11:01 AM EDT Gender Identity Female 03/21/2025 9:51 AM EDT Sexual Orientation Straight 03/21/2025 9: 51 AM EDT Last Filed Vital Signs Vital Sign Reading Time Taken Comments Blood Pressure - - Pulse - - Temperature - - Respiratory Rate - - Oxygen Saturation - - Inhaled Oxygen Concentration - - Weight 93 kg (205 lb) 03/16/2025 1:20 PM EDT Height 170.2 cm (5' 7 ) 03/16/2025 1:20 PM EDT Body Mass Index 32.11 03/16/2025 1:20 PM EDT Plan of Treatment Not on file Medical Devices Not on file Procedures Procedure Name Priority Date/Time Associated Diagnosis Comments MRI BRAIN (INTERNAL AUDITORY CANAL) WITH AND WITHOUT CONTRAST Routine 03/22/2025 7:51 AM EDT Sensorineural hearing loss (SNHL) of right ear with restricted hearing of left ear from Last 3 Months Results * MRI BRAIN (INTERNAL AUDITORY CANAL) WITH AND WITHOUT CONTRAST (03/22/2025 7:51 AM EDT) Anatomical Region Laterality Modality Head Magnetic Resonan ce 03/23/2025 10:4 3 AM EDT Impressions 03/23/2025 10:55 AM EDT 1. No retrocochlear abnormality or acute intracranial abnormality. Narrative 03/23/2025 10:55 AM EDT MRI BRAIN (INTERNAL AUDITORY CANAL) WITH AND WITHOUT CONTRAST Referring clinician's provided indication for this examination in [facility]: SENSORINEURAL HEARING LOSS OF RIGHT EAR WITH [...] clinician's provided indication for this examination in [facility]:SENSORINEURAL HEARING LOSS OF RIGHT EAR WITH RESTRICTED [...] or acute intracranial abnormality. Major Tamez MD IMG MR HEAD/NECK Final Re sult from Last 3 Months [place] [facility] [place]: [address] [address] MEDICARE PART A & B MEDICARE PART A & B MEDICARE PART A & B [place] [facility] [place] Address: [place] [address] MEDICARE PART A & B Member Subscriber Plan / Payer (Ef fective 2021-) Name:Jolene Meadows Member ID:[id number] Relation to Subscriber:Self Name:Cristal Meadowsh Subscriber ID:[id number] Payer ID:[id number] Group ID:Not on file Type:Medicare Address: [employer] [address] Care Teams Psychological Operations Officer Relationship Specialty Start Date End Date Pcp, Unknown PCP - General 03/06/25 Additional Source Comments The information contained in this document represents components of the legal health record. It is not the complete legal health record.[facility]
--- OUTSIDE RECORDS SUMMARY | 2025-04-29 06:16 | XMS_ITS | Encounter Summary ---
Author Organization [facility] Address [address] [facility] [address] [place] [address] Phone Care Team Providers Care School Director Name Role Phone Pcp, Unknown Primary Care Provider Unavailabl e Encounter Details Date Type Department Care Team (Late st Contact Info) Description 02/28/2025 Procedure Pass [facility], [address] [address] Social History Tobacco Use Types Packs/Day Years [...] on file documented as of this encounter Visit Diagnoses Not on filedocumented in this encounter Care Teams School Director Relationship Specialty Start Date End Date Pcp, Unknown PCP - General 03/06/25 documented as of this encounter Additional Source Comments The information contained in this document represents components of the legal health record. It is not the complete legal health record.[facility]
[2025-04-29 06:29] LABS: MANUAL DIFF FLAG NO
[2025-04-29 07:47] LABS: Hematocrit 42.4 % (37.0-47.0); Hemoglobin 14.8 g/dl (12.0-16.0); Imm Gran Abs Auto 0.01 X10*3/uL (0.00-0.03); Imm Gran Pct Auto 0.2 % (0.0-0.4); Lymphocytes Absolute Auto 2.3 X10*3/uL (1.2-4.9); Mean Corpuscular HGB Conc 34.9 g/dl (31.0-35.0); Mean Corpuscular Hemoglobin 30.7 pg (27.0-33.0); Mean Corpuscular Volume 88.0 fL (80.0-98.0); NRBC Abs Auto 0.000 X10*3/uL (0.0-0.012); NRBC Pct Auto 0.0 /100WBC (0.0-0.2); Platelet Count 211 X10*3/uL (160-400); Red Blood Count 4.82 X10*6/uL (4.20-5.50); White Blood Count 5.6 X10*3/uL (4.8-10.8)
[2025-04-29 07:54] LABS: Hemoglobin A1C 166.3272 umol/L; Total Hemoglobin (HGBA1C) 3834.3619 umol/L
[2025-04-29 08:33] LABS: Alanine Aminotransferase 29 U/L (0-31); Albumin Level 4.2 g/dL (3.5-5.0); Alkaline Phosphatase 86 U/L (39-117); Anion Gap 10 (12-20); Aspartate Amino Transferase 31 U/L (5-31); Blood Urea Nitrogen 15 mg/dL (9-16); Calcium 8.9 mg/dL (8.4-10.2); Carbon Dioxide 28 mmol/L (22-29); Chloride 109 mmol/L (96-108); Cholesterol 142 mg/dL (<200); Estimated Glomerular Filt Rate > 60; HDL Cholesterol 50 mg/dL (>40); Potassium 4.4 mmol/L (3.3-5.1); Sodium 143 mmol/L (135-145); Total Protein 6.9 g/dL (6.5-8.0); Triglycerides 84 mg/dL (<150)
[2025-04-29 08:34] LABS: Appearance Urine Clear; Glucose Urine UA Negative (Negative); PH 5.5 (5.0-9.0); Specific Gravity - Urine 1.020 (1.005-1.025); UMIC TRIGGER UACC YES
[2025-04-29 08:41] LABS: UACC Culture Trigger YES
[2025-04-29 08:41] LABS: Free T4 (Free Thyroxine) 0.91 ng/dL (0.71-1.85); Thyroid Stimulating Hormone 1.15 uIU/mL (0.32-4.0)
[2025-04-29 08:47] LABS: Folate 13.6 ng/mL (> or = 4.0); Vitamin B12 446 pg/mL (200-900)
[2025-04-29 09:30] LABS: Microalbum/Creatinine Ratio Ur 9.8 ug/mg cr (<30)
== END 2025-04-29 06:13 | disposition home or self-care (01) ==
LOC: HO.LAB 06:12
PROVIDERS: PCP Internal Medicine; Visit Provider Internal Medicine
DX: E11.9 Type 2 diabetes mellitus without complications (principal); E78.00 Pure hypercholesterolemia, unspecified; D64.9 Anemia, unspecified; E03.9 Hypothyroidism, unspecified; E53.8 Deficiency of other specified B group vitamins; E55.9 Vitamin D deficiency, unspecified
CPT/HCPCS: 36415; 80053; 80061; 81001; 82043; 82306; 82570; 82607; 82746; 83036; 84439; 84443; 85025; 87086

== ENCOUNTER 2025-05-12 07:36 | Outpatient (REF) | payer MEDICARE, OTHER, SELFPAY ==
--- NOTE | ~2025-05-12 | MM_ITS ---
EXAMINATION: MM SCREENING DIGITAL BREAST TOMOSYNTHESIS, BILATERAL CLINICAL INFORMATION: Screening. Asymptomatic. COMPARISON: Mammography: Comparison is made with available priors TECHNIQUE: Digital breast mammography with tomosynthesis is performed in both the craniocaudal and mediolateral oblique views along with computer-aided detection (CAD). FINDINGS: There are scattered areas of fibroglandular density. There are no significant masses, abnormal calcifications, or other abnormalities. MM/MM tomosynthesis screening BI IMPRESSION: No mammographic evidence of malignancy. ASSESSMENT: BI-RADS Category 1: Negative RECOMMENDATION: Routine annual mammography screening. 1 year F/U This examination should not preclude the clinical evaluation of a suspicious palpable abnormality. This patient's information was entered into a reminder system with a target due date for their next mammogram. Electronically signed by: Ana Vuong DO 05/13/2025 05:00 PM MISSY
--- NOTE | ~2025-05-12 | MM_ITS ---
EXAMINATION: BONE DENSITOMETRY CLINICAL INDICATION: Asymptomatic menopausal state. COMPARISON: This is the patient's baseline examination. TECHNIQUE: Using a Krave-N dual-energy x-ray absorptiometry was performed of the lumbar spine and left hip. The images are of good technical quality. Summary results are attached. FINDINGS: AP SPINE L1-L4: BMD 1.065 g/cm2, Z-score -0.1, T-score -1.0, LEFT FEMUR, NECK: BMD 0.873 g/cm2, Z-score -0.1, T-score -1.2, . LEFT FEMUR, TOTAL: BMD 0.967 g/cm2, Z-score 0.5, T-score -0.3, IDENTIFIED RISK FACTORS: None listed. HISTORY OF FRACTURE: None listed. MEDICATIONS: None listed. MM/XR DEXA axial skeleton IMPRESSION: 1. DIAGNOSIS: Osteopenia based on the lowest T-score value of -1.2 in the left femur applying World Health Organization criteria. 2. 10-YEAR FRACTURE RISK PREDICTION, FRAX: 8.0% and just for hip 0.9%. 3. Treatment Recommendations: NOF guidelines recommend consideration for treatment in postmenopausal women and men age 50 and older presenting with the following: -A hip or vertebral (clinical or morphometric) fracture. -T-score less than or equal to -2.5 at the femoral neck or spine after appropriate evaluation to exclude secondary causes. -Low bone mass at the hip or spine and a 10-year fracture probability by FRAX of greater than or equal to 3% for hip fracture or greater than or equal to 20% for major osteoporotic fracture based on the [place] adapted WHO algorithm. FUTURE SCAN RECOMMENDATION: People with diagnosed cases of osteoporosis or at high risk for fracture should have regular bone mineral density tests. For patients eligible for Medicare, routine testing is allowed once every 2 years. The testing frequency can be increased to one year for patients who have rapidly progressing disease, those who are receiving or discontinuing medical therapy to restore bone mass, or have additional risk factors. Electronically signed by: Duke Maier MD 05/12/2025 10:42 AM EDT
--- OUTSIDE RECORDS SUMMARY | 2025-05-12 07:41 | XMS_ITS | Encounter Summary ---
Author Organization [facility] Address [address] [place] [address] [address] [place] [address] Phone Care Team Providers Care Base Wad Operator Adjuster Name Role Phone Pcp, Unknown Primary Care Provider Unavailabl e Reason for Referral * MRI/CAT Scan - Closed Specialty Diagnoses / Procedures Referred By Katharina franklin Referred To Contact Radiology Diagnoses Sensorineural hearing loss (SNHL) of right ear with restricted hearing of left ear Procedures MRI Brain CHG MRI BRAIN COMBO Major Tamez MD [address], [address] [place] [address] Phone: tel: fax: [email or web address] Referral ID Status Reason Start Date Expiration Date Visits Re quested Visits Authorized [id number] Closed 02/28/2025 04/29/2025 1 1 Encounter Details Date Type Department Care Team (Latest Contact Info) Description 02/28/2025 Transcribe Orders Virtual Department [address] [place] [address] Major Tamez MD [address], [address] [place] [address] [email or web address] Sensorineural hearing loss (SNHL) of right ear [...] clinician's provided indication for this examination in [facility]: SENSORINEURAL HEARING LOSS OF RIGHT EAR [...] clinician's provided indication for this examination in [facility]:SENSORINEURAL HEARING LOSS OF RIGHT EAR WITH [...] or acute intracranial abnormality. Major Tamez MD [facility] MR HEAD/NECK Final Re sult documented in this encounter Visit Diagnoses Diagnosis Sensorineural hearing loss (SNHL) of right ear with restricted hearing of left ear- Primary Sensorineural hearing loss (SNHL) of right ear with restricted hearing of left ear documented in this encounter Care Teams Base Wad Operator Adjuster Relationship Specialty Start Date End Date Pcp, Unknown PCP - General 03/06/25 documented as of this encounter Additional Source Comments The information contained in this document represents components of the legal health record. It is not the complete legal health record.[facility]
--- OUTSIDE RECORDS SUMMARY | 2025-05-12 07:41 | XMS_ITS | Clinical Summary ---
Author Organization [facility] Address [address] [place] [address] Phone Care Team Providers Care Aerial Photograph Interpreter Name Role Phone Pcp, Unknown Primary Care Provider Unavailabl e Encounters Date Type Department Care Team Description 03/22/2025 6:47 AM EDT - 03/22/2025 11:59 PM EDT Hospital Encounter [address] [address] Major Tamez MD Discharge Disposition: Home or Self Care 02/28/2025 Procedure Pass [address] [address] 02/28/2025 Transcribe Orders Virtual Department [address] [place] [address] Major Tamez MD Sensorineural hearing loss (SNHL) [...] clinician's provided indication for this examination in [facility]: SENSORINEURAL HEARING LOSS OF RIGHT EAR [...] clinician's provided indication for this examination in [facility]:SENSORINEURAL HEARING LOSS OF RIGHT EAR WITH [...] Insurance MEDICARE PART A & B O MEDICARE PART A & B MEDICARE PART A & B MEDICARE PART A & B MEDICARE PART A & B O MEDICARE PART A & B Member Subscriber Plan / Payer (Ef fective 2021-) Name:Jolene Meadows Member ID:[id number] Relation to Subscriber:Self Name:Cristal Meadowsh Subscriber ID:[id number] Payer ID:[id number] Group ID:Not on file Type:Medicare Address: [employer] [address] Care Teams Aerial Photograph Interpreter Relationship Specialty Start Date End Date Pcp, Unknown PCP - General 03/06/25 Additional Source Comments The information contained in this document represents components of the legal health record. It is not the complete legal health record.[facility]
--- OUTSIDE RECORDS SUMMARY | 2025-05-12 07:41 | XMS_ITS | Data Portability ---
Author Organization [place] [facility] Address [address] [facility] [address] [place] [phone] Care Team Providers Care Promotion Producer Name Role Phone VINNY ROSSY Primary Care Provider [phone] Assessment No assessment recorded. Plan of Treatment Reminders Order Date Submit Date Provider Last Modified By Organization Details Last Modified Time Details Appointments None recorded. Lab None recorded. Referral None recorded. Procedures None recorded. Surgeries None recorded. Imaging MRI, brain + internal auditory canal, w/wo contrast - MRI, BRAIN + INTERNAL AUDITORY CANAL, W/WO CONTRAST, eval asymmetric HL 2024 025 [email or web address] [facility], [address] [place], [address], 13:05:24 Medication Orders None recorded. Patient TargetsNo targets recorded. Patient InstructionsNo instructions recorded. Reason for Referral None Reported. Results Created Date Observation Date Name Description Value Unit Range Abnormal Flag Note LastModifiedBy Organization Detail LastModifiedTime 02/26/20 25 02/24/2025 audio gram No observ ation record ed. [email or web address] Not Available 2024 10:23:43 03/23/20 25 03/22/2025 MRI, brain + inter nal audit ory canal , w/wo contr ast No observ ation record ed. [email or web address] Ent [facility] (Records Request Only) [address] [place], [address], 03/29/2025 14:31:10 Result Notes None recorded. Problems Name Problem SNOMED Code Status Onset Date Resolution Date Notes Provider Name and Address Organization Details Recorded Time Dysphonia 08513443 Active 2022 Hoarsenes s; Note: Date Diagnosed : 10/14/2022 2:03 PM (R49.0) Not Available [facility] 4 02:22:50 Paralysis of larynx 77080830 Active 2022 Paralysis of vocal cords and larynx, unilatera l; Note: Date Diagnosed : 10/14/2022 2:11 PM (J38.01) Not Available [facility] 4 02:22:40 Sensorine ural hearing loss of bilateral ears 211442544 Active 2024 GORDO MATHEWS [address] [facility] [place] [address], [place], [address] , [facility] - [facility] 5 14:30:33 Dysfuncti on of left eustachia n tube 06437676933 [address] Active 2024 YESICA MAYER MD [address] [facility],[place] [address], [place], [address] , [facility] - [facility] 5 09:02:08 Bilateral hearing loss 87342811 Active 2024 YESICA MAYER MD [address] [facility] [place] [address], [place], [phone] , [facility] 5 09:02:21 Pain of left temporoma ndibular joint 86201277945 805924 Active 2024 YESICA MAYER MD [address] [place] [address],[place] [address], [place], [address] , [facility] - [facility] 5 09:13:00 Problem Notes None recorded. Procedures Surgical History Date Name Laterality Status Provider Name and Address Organization Details Recorded Time 02/24/2025 Comp Audio with Tymps - 56[address] & [address] completed GORDO MATHEWS [address], [place], [address], [facility] - [facility] 02/24/2025 14:30:14 Imaging Results None recorded. Procedure Notes None recorded. Medical Equipment None Reported. Allergies Allergen ID Allergen Name Allergen Category Reaction Reaction Severity Criticality Documentation Date Start Date Code Code System Note Provider Name and Address Organization Details Recorded Time 99993 tramadol hydrochlo ride medicatio n other Not available Not available 12/23/2023 33193 RxNorm React ion: Unkno wn; Not Available [facility] 4 00:51:33 27623 codeine / pseudoeph edrine / triprolid ine medicatio n other Not available Not available 12/23/2023 83240 1 RxNorm React ion: Unkno wn; Not Available [facility] 4 00:51:48 Medications Name Sig Start Date Stop Date Status Note LastModified by Organization Details LastModified Time ofloxacin 0.3 % ear drops INSTILL 10 DROPS INTO AFFECTED EAR(S) ONCE DAILY FOR 7 DAYS active Not Available Not Available No t Available cephalexin 500 mg capsule TAKE 1 CAPSULE BY MOUTH EVERY 8 HOURS FOR 7 DAYS 02/24 completed Not Available Not Available Not Available lisinopril 10 mg tablet TAKE 1 TABLET BY MOUTH ONCE DAILY active Not Available Not Available No t Available azelastine 137 mcg (0.1 %) nasal spray ADMINISTE R 1 SPRAY IN EACH NOSTRIL TWICE DAILY active Not Available Not Available No t Available levothyroxi ne 112 mcg tablet TAKE 1 TABLET BY MOUTH IN THE MORNING ON AN EMPTY STOMACH DO NOT EAT OR DRINK ANYTHING FOR 30 MINUTES AFTERWARD S EXCEPT FOR WATER active Not Available Not Available No t Available amoxicillin 875 mg-potassiu m clavulanate 125 mg tablet TAKE 1 TABLET BY MOUTH TWICE DAILY FOR 10 DAYS 02/28 completed Not Available Not Available Not Available ezetimibe 10 mg-simvasta tin 20 mg tablet TAKE 1 TABLET BY MOUTH ONCE DAILY active Not Available Not Available No t Available Vitals Date Recorded Body height Body mass index (BMI) Body weight Provider Name and Address Organization Details Last Updated DateTime 02/28/2025 170.18 cm 32.1 kg/m2 27865.44 g Rosy Haider [place] - [facility] 02/28/2025 08:56:17 Social History None recorded. Functional Status None recorded. Mental Status None recorded. Family History Nothing Reported. Medical History No medical history recorded. Gynecological HistoryNo gynecological history recorded. Obstetrics History GPAL:G 0 P 0 0 0 0 Past Encounters Encounter ID Performer Location Encounter Start Date Encounter Closed Date Diagnosis/Indication Diagnosis SNOMED-CT Code Diagnosis ICD10 Code Diagnosis IMO Codes Diagnosis Note [id number] YESICA MAYER MD [facility] on [address] [place] [phone] 02/28/2025 08:49:39 02/28/2025 09:12:12 Dysfunction of left eustachian tube 6355190564 277389 H69.92 [id number] I discussed autoinsuff lation and management of TMJ. I gave reassuranc e there is no infection. Bilateral hearing loss 39985240 H90.A21 61051930 Given the asymmetric hearing loss I recommend an MRI IAC with contrast to evaluate for retrocochl ear pathology. We will review results when complete. 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 This may also contribute to ETD . I discussed conservati ve measures including a night coordinator, warm compresses , NSAIDs if not contraindi cated and a soft diet for 2 weeks. [id number] GORDO MATHEWS [facility] on [address] [place] [phone] 02/24/2025 13:42:25 02/25/2025 08:56:29 Sensorineural hearing loss of bilateral ears 695476486 H90.3 [id number] Audiologic al evaluation results: Right ear: Normal sloping to moderately severe sensorineu ral hearing loss with excellent word recognitio n. Left ear: Normal sloping to a moderate sensorineu ral hearing loss with excellent word recognitio n. Tympanomet ry: Right Ear:Type Ad Left Ear:Type Ad Health Concerns Section Related Observation LastModified by Organization Detai ls LastModified Time None Recorded Concern Status LastModified by Organization Details LastModified Time None Recorded Advance Directives Directive None Recorded Payers Insurance Date Sequence Insurance Name Policy Number Policy Morrison Covered Member ID Morrison Member ID Guarantor Name 02/28/2025 1 MEDICARE [place]: [employer] Jolene Meadows [id number] Jolene Meadows 02/28/2025 2 [facility] [id number] Jolene Meadows [id number] Jolene Meadows Notes Date Note Type Note Provider Name and Address Organization Details Recorded Time 02/28/2025 text/html ROS as noted in the HPI She reports intermittent left ear blockage since November. It continues to block and unblock. Currently she reports it is on blocked. There is a heavy feeling in her ear. Has intermittent tinnitus AU. No otorrhea. She has been seen several times for this. She was treated with nasal saline spray and otic drops and a different nasal spray. These didn't help. She was put on amox which didn't help. She had an audiogram 02/24/25 which showed asymmetric HF SNHL worse AD with normal tymps AU. She has never been able to autoinsufflate except for rarely when she yawns. YESICA MAYER MD [address] [place] [address], [phone], [facility] - [facility] 02/28/2025 09:14:50 OBGyn Episode No OBEpisode recorded.
--- OUTSIDE RECORDS SUMMARY | 2025-05-12 07:41 | XMS_ITS | Encounter Summary ---
Author Organization [facility] Address [address] [facility] [address] [place] [address] Phone Care Team Providers Care Meat Curer Name Role Phone Pcp, Unknown Primary Care Provider Unavailabl e Encounter Details Date Type Department Care Team (Late st Contact Info) Description 02/28/2025 Procedure Pass [facility], [address] [address] Social History Tobacco Use Types Packs/Day Years [...] on filedocumented in this encounter Care Teams Meat Curer Relationship Specialty Start Date End Date Pcp, Unknown PCP - General 03/06/25 documented as of this encounter Additional Source Comments The information contained in this document represents components of the legal health record. It is not the complete legal health record.[facility]
== END 2025-05-12 07:37 | disposition home or self-care (01) ==
LOC: HO.MAMMO 07:36
PROVIDERS: PCP Internal Medicine; Visit Provider Internal Medicine
DX: Z12.31 Encounter for screening mammogram for malignant neoplasm of breast (principal); Z13.820 Encounter for screening for osteoporosis; Z78.0 Asymptomatic menopausal state
CPT/HCPCS: 77063; 77067; 77080

== ENCOUNTER → 2025-05-12 08:15 | Outpatient (BNV) | payer MEDICARE, OTHER, SELFPAY | PROVIDERS: PCP Internal Medicine; Visit Provider Radiology Diagnostic Radiology | DX: E28.39 Other primary ovarian failure (principal) | CPT/HCPCS: 77080 ==

== ENCOUNTER 2025-06-29 06:17 | Day surgery (SDC) | payer MEDICARE, OTHER, SELFPAY ==
--- NOTE | 2025-06-27 10:09 | P.CONAN_ITS ---
Documented by User: Larissa Dunn NP 06/27/25 10:12 HPI - Anesthesia Eval Consult details Narrative: 70 yr old female for Colonoscopy; Upper Endoscopy with Balloon Dilitation Sleep apnea PMFSH Active Problems Active Problems: All Active Problems Eustachian tube dysfunction (Acute) Cellulitis of left external ear (Acute) Osteoporosis screening (Acute) Colon cancer screening (Acute) Neuropathy (Acute) Tinea corporis (Acute) Status post total knee replacement, left (Acute) Preoperative clearance (Acute) Nephrolithiasis (Acute) Osteoarthritis of left knee (Acute) Sprain of left hip (Acute) Left nephrolithiasis (Acute) Annual physical exam (Acute) Chronic hoarseness (Acute) Acute bronchitis (Acute) Dysphagia (Acute) Upper respiratory infection (Acute) Hair loss (Acute) Bilateral lower extremity edema (Acute) Obesity (BMI 30-39.9) (Acute) Elevated LFTs (Acute) Allergic rhinitis (Acute) Impaired fasting glucose (Acute) Nocturnal hypoxemia (Acute) Lumbar degenerative disc disease (Acute) Arthritis of sacroiliac joint (Acute) Degenerative joint disease of left knee (Acute) Asthma (Acute) Aime's thyroiditis (Acute) Hypothyroidism (Acute) Pure hypercholesterolemia (Acute) Benign essential hypertension (Acute) Past Medical History Medical History Osteoarthritis of left hip Basal cell carcinoma GERD (gastroesophageal reflux disease) Sleep apnea History of TIA (transient ischemic attack) Obesity (BMI 30-39.9) Allergic rhinitis Nocturnal hypoxemia Lumbar degenerative disc disease Arthritis of sacroiliac joint Degenerative joint disease of left knee Asthma Aime's thyroiditis Hypothyroidism Pure hypercholesterolemia Benign essential hypertension Family History Family History Father No problems noted. Mother Stroke Hypertension CVD (cardiovascular disease) Diabetes mellitus Cancer Family history of problems with anesthesia: No Surgical History Surgical History Total knee replacement status History of arthroplasty of left knee (~05/20/23) History of colonoscopy (~12/26/14) History of cholecystectomy History of excision of lesion History of total abdominal hysterectomy History of removal of cyst History of extraction of renal calculus History of tonsillectomy H/O knee surgery History of Problems with Anesthesia: No Social History Social History Household Members: Spouse Housing: Apartment Are you a primary long term care administrator to a significant other at home: No Do you presently have visiting nurse or other home services: No Alcohol intake: current Alcohol intake frequency: does not drink Patient Tobacco Use Status: Never used Tobacco e-Cigarette/Vaping Use: Never Used Second Hand Smoke Exposure: No Have you been hit, kicked, punched, or otherwise hurt by someone within the past year? If so, by whom?: No Advance Directives: No Advance Directives Information Provided: Yes service: No Current occupational status: retired Cognitive needs: No Hearing needs: No Vision needs: Yes (Glasses) Meds Allergies Allergy/AdvReac Type Severity Reaction Status Date / Time adhesive Allergy Intermediate Redness of Verified 06/27/25 14:06 Skin apple Allergy Intermediate Swelling Verified 06/29/25 06:40 carrot Allergy Intermediate Swelling Verified 06/29/25 06:40 angelo (cherries) Allergy Intermediate Swelling Verified 06/29/25 06:40 cortisone Allergy Mild swelling Verified 01/28/25 15:59 codeine AdvReac Severe mental Verified 01/28/25 15:59 status change, dizziness, fuzzy gabapentin (Neurontin) AdvReac Severe mental Verified 01/28/25 15:59 status changes tramadol AdvReac Severe mental Verified 01/28/25 15:59 status change, dizziness, fuzzy Home Medications ?Medication ?Instructions ?Recorded ?Confirmed ?Last Taken ?Type multivitamin with iron-mineral 2 tab PO DAILY 05/13/23 06/29/25 06/28/25 History loratadine 10 mg disintegrating 10 mg PO DAILY PRN all ergy symptoms 02/18/24 06/27/25 06/28/25 History tablet (Allergy Relief (loratadine)) Exam Pertinent Lab Results Pertinent Lab Results: Laboratory Tests 04/29/25 06:26 WBC 5.6 RBC 4.82 Hgb 14.8 Hct 42.4 Plt Count 211 Sodium 143 Potassium 4.4 Chloride 109 H Carbon Dioxide 28 BUN 15 Creatinine 0.64 Assessment and Plan Final Anesthetic Review Family History of Problems with Anesthesia: No History of Problems with Anesthesia: No Documented by User: Minesh Marquez MD 06/29/25 07:12 [facility] Past Medical History Medical History Osteoarthritis of left hip Basal cell carcinoma GERD (gastroesophageal reflux disease) Sleep apnea History of TIA (transient ischemic attack) Obesity (BMI 30-39.9) Allergic rhinitis Nocturnal hypoxemia Lumbar degenerative disc disease Arthritis of sacroiliac joint Degenerative joint disease of left knee Asthma Aime's thyroiditis Hypothyroidism Pure hypercholesterolemia Benign essential hypertension Functional capacity: independent ambulation Family History Family History Father No problems noted. Mother Stroke Hypertension CVD (cardiovascular disease) Diabetes mellitus Cancer Surgical History Surgical History Total knee replacement status History of arthroplasty of left knee (~05/20/23) History of colonoscopy (~12/26/14) History of cholecystectomy History of excision of lesion History of total abdominal hysterectomy History of removal of cyst History of extraction of renal calculus History of tonsillectomy H/O knee surgery Social History Social History Household Members: Spouse Housing: Apartment Are you a primary long term care administrator to a significant other at home: No Do you presently have visiting nurse or other home services: No Alcohol intake: current Alcohol intake frequency: does not drink Patient Tobacco Use Status: Never used Tobacco e-Cigarette/Vaping Use: Never Used Second Hand Smoke Exposure: No Have you been hit, kicked, punched, or otherwise hurt by someone within the past year? If so, by whom?: No Advance Directives: No Advance Directives Information Provided: Yes service: No Current occupational status: retired Cognitive needs: No Hearing needs: No Vision needs: Yes (Glasses) Meds Allergies Allergy/AdvReac Type Severity Reaction Status Date / Time adhesive Allergy Intermediate Redness of Verified 06/27/25 14:06 Skin apple Allergy Intermediate Swelling Verified 06/29/25 06:40 carrot Allergy Intermediate Swelling Verified 06/29/25 06:40 angelo (cherries) Allergy Intermediate Swelling Verified 06/29/25 06:40 cortisone Allergy Mild swelling Verified 01/28/25 15:59 codeine AdvReac Severe mental Verified 01/28/25 15:59 status change, dizziness, fuzzy gabapentin (Neurontin) AdvReac Severe mental Verified 01/28/25 15:59 status changes tramadol AdvReac Severe mental Verified 01/28/25 15:59 status change, dizziness, fuzzy Home Medications ?Medication ?Instructions ?Recorded ?Confirmed ?Last Taken ?Type multivitamin with iron-mineral 2 tab PO DAILY 05/13/23 06/29/25 06/28/25 History loratadine 10 mg disintegrating 10 mg PO DAILY PRN all ergy symptoms 02/18/24 06/27/25 06/28/25 History tablet (Allergy Relief (loratadine)) Exam Exam Date and Time: 06/29/25 Airway Mallampati Class: II TM Dist: >3cm Loose/Missing/Broken Teeth: Yes (many missing teeth) Heart: normal Lungs: normal Other: normal Assessment and Plan Assessment Anesthesia Assessment: Anesthesia Plan Discussed and Chart Reviewed Final Anesthetic Review NPO: Yes ASA Class: II Final Preanesthetic Review: No Changes in Pt Med Stat, Meds/Allgs Chart Reviewed, Consent Obtained/Reviewed and Anes Risks/Benef Reviewed Patient Risk: Intermediate Procedure Risk: Low Anesthetic Plan Anesthetic Plan: MAC: Disposition: Standard PACU
[2025-06-27 14:06] VITALS: BMI 32.0
[2025-06-29 06:35] VITALS: BP 138/68; PULSE 66; RESP 18; TEMP 36.9; O2SAT 96; BMI 32.0
[2025-06-29] MEDS: Lactated Ringers 1,000 ML 100 ML IVCONT (06:56)
[2025-06-29 08:50] VITALS: BP 110/55; PULSE 16; RESP 75; TEMP 36.1; O2SAT 95
--- NOTE | 2025-06-29 08:56 | PM.OP ---
Brief Operative Note Date of Service: 06/29/25 Pre-op diagnosis: Dysphagia, Screening Post-op diagnosis: other (Hiatal hernia, GERD, Diverticulosis) Procedure: EGD with biopsies and Balloon dilation with an 18 to 19 to 20mm balloon, and Colonoscopy to the cecum Surgeon: Major Mullins MD Anesthesia: MAC Was an [employer] Extension Specialist used for this Procedure?: No Estimated blood loss (mL): 2.0 Pathology: other (A. EG Junction at 35cm) Condition: stable Disposition: PACU
[2025-06-29 09:05] VITALS: BP 114/57; PULSE 16; RESP 63; TEMP 36.1; O2SAT 99
--- NOTE | 2025-06-29 09:31 | OP_ITS ---
DATE OF SERVICE: 06/29/2025 SURGEON: Major Mullins MD INDICATIONS: The patient presents for evaluation of dysphagia, gastroesophageal reflux, abnormal barium swallow, and colorectal cancer screening. Full consent has been obtained from her for this, including risks of bleeding and perforation. PREOPERATIVE DIAGNOSIS: POSTOPERATIVE DIAGNOSIS: PROCEDURE PERFORMED: Colonoscopy to the cecum and esophagogastroduodenoscopy with balloon dilation of gastroesophageal junction and biopsies. ESTIMATED BLOOD LOSS: COMPLICATIONS: ANESTHESIA: Medication use, monitored anesthesia care. ASSISTANTS: SPECIMENS: PREOPERATIVE DIAGNOSES: Gastroesophageal reflux, dysphagia, abnormal barium swallow, and colorectal cancer screening. POSTOPERATIVE DIAGNOSES: Gastroesophageal reflux, dysphagia, abnormal barium swallow, and colorectal cancer screening, hiatal hernia, diverticulosis, and internal hemorrhoids. DESCRIPTION OF PROCEDURE: The patient was placed in the left lateral decubitus position. The Olympus video gastroscope was passed in the posterior oropharynx and upper esophagus under direct vision. The scope was passed slowly to the distal esophagus. The gastroesophageal junction appeared at 35 cm. With insufflation of air, there was no evidence of any definitive ring or stricture noted, but there was some edema, erythema, and some minimal friability. There was no ulceration or mass. The scope entered the stomach easily into a small hiatal hernia. The scope was advanced to pylorus and the duodenum was cannulated to the descending portion. The duodenum including the bulb appeared normal without mass or ulceration. The scope was withdrawn back in the stomach. The gastric antrum and body appeared normal with good peristalsis. The scope was retroflexed visualizing the proximal stomach carefully, which appeared normal, without any sign of mass or ulceration. The scope was straightened and withdrawn back to the esophagus. Given her symptoms and the barium swallow findings, I did use a [employer] incremental balloon to dilate the gastroesophageal junction from 18 mm to 19 mm to 20 mm at the recommended pressure for between 30 and 60 seconds each. Post dilation, there was some heme noted, but no disruption of the gastroesophageal junction. I then obtained biopsies at the EG junction at 35 cm as well. Proximal to this, the esophageal mucosa appeared normal. The scope was withdrawn from the patient. She was turned around for the colonoscopy. The digital rectal exam revealed no abnormalities. The Olympus video pediatric colonoscope was entered into the rectum advanced to the cecum with the assistance of abdominal wall pressure. I did require 2 separate areas of abdominal wall pressure by 2 different people. However, once in the cecum, I did identify normal-appearing cecal pouch with appendiceal orifice and a normal-appearing ileocecal valve. There was transillumination of light deep in the lower quadrant. The entire cecum and ileocecal valve appeared normal. The scope was then slowly withdrawn assessing all mucosal surfaces carefully. Preparation was excellent. I did not visualize any sign of polyps, colitis, nor angiodysplasia. There was a mild amount of sigmoid diverticulosis. In the rectum, scope was retroflexed visualizing internal hemorrhoids, but no other pathology. The rectal mucosa appeared normal. Scope was straightened and withdrawn from the patient. She tolerated procedure well and was returned to recovery area in stable condition. IMPRESSION: 1. Diverticulosis. 2. Internal hemorrhoids. 3. Hiatal hernia, gastroesophageal reflux. PLAN: The results of biopsies will be checked. Given her findings and symptoms, I shall start her on omeprazole 20 mg daily. She will continue that as long as her swallowing remains stable after the dilation and the institution of the acid suppression. Given the negative colonoscopy and the fact that she has no family history of colon cancer, I do not think she would need any further screening colonoscopies given her age of 70. She will otherwise see me on a p.r.n. basis. MD YESSICA Enrique/NAVIN / [id number] MTDD
== END 2025-06-29 09:42 | disposition home or self-care (01) ==
PROVIDERS: PCP Internal Medicine; Visit Provider Internal Medicine
PROC: 0DJD8ZZ Inspection of Lower Intestinal Tract, Via Natural or Artificial Opening Endoscopic (ICD-10-PCS; CPT 45378; principal; 2025-06-29 07:30)
PROC: (CPT 43249; 2025-06-29 07:30)
DX: Z12.11 Encounter for screening for malignant neoplasm of colon (principal); K57.30 Diverticulosis of large intestine without perforation or abscess without bleeding; K64.8 Other hemorrhoids; R13.10 Dysphagia, unspecified; K21.9 Gastro-esophageal reflux disease without esophagitis; K44.9 Diaphragmatic hernia without obstruction or gangrene; I10 Essential (primary) hypertension; E78.5 Hyperlipidemia, unspecified; E03.9 Hypothyroidism, unspecified; J45.990 Exercise induced bronchospasm; G47.33 Obstructive sleep apnea (adult) (pediatric); Z86.73 Personal history of transient ischemic attack (TIA), and cerebral infarction without residual deficits; Z85.828 Personal history of other malignant neoplasm of skin; Z87.442 Personal history of urinary calculi; Z96.652 Presence of left artificial knee joint; Z79.899 Other long term (current) drug therapy; Z90.49 Acquired absence of other specified parts of digestive tract; Z98.890 Other specified postprocedural states
CPT/HCPCS: 43249; 43239; G0121; 88305; 88313; C1726; J2003; J2704; J3010